=== PATIENT | female | born 1945 | race Caucasian/White ===

== ENCOUNTER 2017-04-23 06:33 | Day surgery (SDC) | payer MEDICARE ==
[2017-04-23 08:06] LABS: #Eosinphils 0.1 thou/uL (0.0-0.7); #Lymphocytes 0.7 thou/uL (1.20-3.40); #Monocytes 0.5 thou/uL (0.11-0.59); #Neutrophils 2.6 thou/uL (1.40-6.50); %Basophils 0.7 % (0.0-1.0); %Eosinophils 3.2 % (0.0-10.0); %Lymphocytes 17.9 % (21.0-51.0); %Monocytes 12.6 % (0.0-10.0); Mean Platelet Volume 5.9 fL (7.4-10.4); Red Blood Cell (RBC) Count 4.21 mill/uL (4.20-5.40); White Blood Cell (WBC) Count 3.9 thou/uL (4.8-10.8)
[2017-04-23 08:12] LABS: PTT 28.6 SEC (22.9-36.1)
[2017-04-23 08:16] LABS: Prothrombin Time 12.6 SEC (12.0-14.7)
[2017-04-23 08:29] LABS: Anion Gap 13 mmol/L (10-20); BUN (Urea Nitrogen) 9 mg/dL (9.8-20.1); Calc. Creatinine Clearance 0 mL/min (70-130); Carbon Dioxide 27 mmol/L (23-31); Chloride 99 mmol/L (98-107); Estimated GFR-MDRD Greater than 90
[2017-04-23] MEDS ORDERED: Midazolam HCl 2 mg/2 ml Vial ONE (10:50)
[2017-04-23] MEDS ORDERED: Bacitracin Zinc Ointment 30 gm TUBE ONE (11:55)
[2017-04-23] MEDS ORDERED: Bupivacaine PF 0.5% 30 ML VIAL ONE (11:55)
[2017-04-23] MEDS ORDERED: Fentanyl 100 MCG/2 ML VIAL ONE ×2 (12:16→13:29)
[2017-04-23] MEDS ORDERED: Lidocaine 1% PF 5 ML VIAL ONE (12:34)
[2017-04-23] MEDS ORDERED: Dexamethasone 20 MG/5 ML VIAL ONE (12:34)
[2017-04-23] MEDS ORDERED: Propofol 200 MG/20 ML VIAL ONE (12:34)
[2017-04-23] MEDS ORDERED: Ondansetron HCl/PF 4 MG/2 ML Vial ONE (12:34)
[2017-04-23] MEDS ORDERED: Betamet Acet/Betamet Na Ph 30 MG/5 ML VIAL ONE (12:55)
--- NOTE | 2017-04-24 09:17 | OP ---
DATE OF PROCEDURE: 04/23/2017 PREOPERATIVE DIAGNOSES: Left palmar wrist ganglion, approximately 3 cm palmar wrist ganglion cyst c ompletely surrounding the radial artery with a stalk extending to the palmar scapholunate and radiol unate joint. PROCEDURE PERFORMED: 1. Arthrotomy with excision of ganglion. 2. Ligation of radial artery branch bleed, arterial. TOURNIQUET TIME: 35 minutes. ESTIMATED BLOOD LOSS: Less than 10 mL. INJECTABLE: Yes, 2 mL of Celestone drip technique at the end of the procedure and 12 mL 0.5% Marcai ne around a 5 cm incision. INDICATION: Pain with mass, palmar wrist ganglion. DESCRIPTION OF PROCEDURE: After successful general LMA technique by the [place] anesthesia, the danny bravo had the time out done appropriately, the limb was prepped and draped, the limb was exsanguinat ed, tourniquet inflated to 250 mmHg pressure. A zigzag incision was made centered on the mass, glaser ied 2 cm distal and 2 cm proximal. Dissection was done through the skin and subcutaneous tissue wit h a combination of [place] blade and tenotomy scissors until we could see that the mass at the radial artery on its radial one-third and completely surrounded the radial artery and its branch. We just dissected the radial artery and all branches away from the mass, then pulled the radial artery radi ally and the mass ulnarly and following its stalk until we penetrated the articular surface. We mad e an arthrotomy approximately 6 mm long following the stalk into the joint, removing the stalk along with some synovium and the mass en bloc. The mass emanated from a confluence of the scaphoid, charo te, and the radioscaphoid joints. We placed a 2 mL Celestone along the path into the joint, released the tourniquet, and there was ble eding from the radial artery branch which we ligated with a medium vessel clip. Once hemostasis was obtained using a combination of the clip and cautery, we were able to close the wound in a 2-layer closure with interrupted 4-0 Monocryl in the zigzag corners of the Damaris type incision and the epi dermal closure with a 4-0 nylon interrupted mattress pattern. Bulky dressing applied along with pal mar splint. The patient left the operating room without complications.
== END 2017-04-23 15:54 | disposition home or self-care (01) ==
LOC: SDC 06:33
PROVIDERS: ATTEND Orthopaedic Surgery Hand Surgery
PROC: 0RJ Upper Joints, Inspection (ICD-10-PCS; principal; 2017-04-23)
PROC: 0W3Q0ZZ Control Bleeding in Respiratory Tract, Open Approach (ICD-10-PCS; 2017-04-23)
DX: M67.432 Ganglion, left wrist (principal); J44.9 Chronic obstructive pulmonary disease, unspecified; Z90.89 Acquired absence of other organs; Z98.890 Other specified postprocedural states; Z83.6 Family history of other diseases of the respiratory system; Z79.899 Other long term (current) drug therapy; Z88.2 Allergy status to sulfonamides; Z88.6 Allergy status to analgesic agent; Z87.891 Personal history of nicotine dependence
CPT/HCPCS: 36415; 80048; 85025; 85610; 85730; 88304; 96374; J0702; J1100; J2001; J2250; J2405; J2704; J3010; S0020

== ENCOUNTER 2017-05-22 11:37 | Emergency (ER) | payer MEDICARE ==
[2017-05-22] MEDS ORDERED: Ondansetron HCl/PF 4 MG/2 ML Vial ONE (13:41)
[2017-05-22] MEDS ORDERED: Morphine 2 MG/ML SYRINGE ONE ×2 (13:41→15:03)
--- NOTE | 2017-05-22 15:22 | RAD ---
PORTABLE CHEST ONE VIEW: Date: 05-22-17 Time: 2:23 p.m. History: Upper back pain. FINDINGS/IMPRESSION: Comparison is made with exam of 03-29-17. The heart size is normal. The aorta is tortuous. Lungs are expanded with chronic changes. No lobar c onsolidation, pneumothorax, or pleural effusions are seen. POS: [facility]
--- NOTE | 2017-05-22 15:24 | RAD ---
THREE VIEWS THORACIC SPINE: Date: 05-22-17 History: Back pain. Recent surgery on T3 vertebral body. Patient complains of upper back pain today. Comparison: CT thoracic spine, 04-05-17. FINDINGS: There is osteopenia. There are mild scattered degenerative changes in the thoracic spine. Vertebropl asty changes at the T2 vertebral body are noted which were seen on the CT scan. There have been inte rval vertebroplasty changes now present involving the compression fracture of the T10 vertebral body noted on the prior CT of the thoracic spine on 04-05-17. No additional compression fracture is seen. Vertebroplasty changes involving the upper lumbar vertebral bodies. Vascular calcifications are seen in the thoracic aorta. IMPRESSION: 1. Vertebroplasty changes involving compression fractures of the T10 and T12 vertebral bodies. 2. No acute fracture is seen involving the thoracic spine. Scattered mild degenerative changes are n oted. POS: [facility]
--- NOTE | 2017-05-22 15:26 | RAD ---
LUMBAR SPINE THREE VIEWS: History: 72-year-old female with back pain, recent surgery on T3 on Saturday, now with upper back pain. FINDINGS: Three views of the lumbar spine demonstrate status post vertebroplasty changes involving L5, L4, L3 and T12 and T10 with the L4 vertebroplasty changes being new when compared to the prior 04-05-17 study . There is diffuse bony demineralization. No evidence for significant malalignment. IMPRESSION: Multiple vertebroplasty changes, new at L4, when compared to the prior CT of 04-05-17. Bony deminerali zation. No evidence for new acute fracture. POS: [facility]
== END 2017-05-22 13:15 | disposition home or self-care (01) ==
LOC: ERS 11:37
DX: M54.14 Radiculopathy, thoracic region (principal); C34.90 Malignant neoplasm of unspecified part of unspecified bronchus or lung; J44.9 Chronic obstructive pulmonary disease, unspecified; Z92.3 Personal history of irradiation; Z87.891 Personal history of nicotine dependence; Z79.899 Other long term (current) drug therapy
CPT/HCPCS: 71010; 72072; 72100; 96361; 96374; 96375; 96376; J2270; J2405

== ENCOUNTER 2017-05-23 02:21 | Emergency (ER) | payer MEDICARE ==
[2017-05-23] MEDS ORDERED: Methocarbamol 1 GM in Sodium Chloride 0.9% 100 ML IVPB SCH (03:00)
[2017-05-23 03:20] LABS: #Eosinphils 0.1 thou/uL (0.0-0.7); #Lymphocytes 0.7 thou/uL (1.20-3.40); #Monocytes 0.7 thou/uL (0.11-0.59); #Neutrophils 3.7 thou/uL (1.40-6.50); %Basophils 0.7 % (0.0-1.0); %Eosinophils 1.4 % (0.0-10.0); %Lymphocytes 13.8 % (21.0-51.0); %Monocytes 13.1 % (0.0-10.0); Hematocrit 43.8 % (36.0-47.0); Mean Platelet Volume 6.1 fL (7.4-10.4); Red Blood Cell (RBC) Count 4.49 mill/uL (4.20-5.40); White Blood Cell (WBC) Count 5.2 thou/uL (4.8-10.8)
[2017-05-23 03:29] LABS: ALT (SGPT) 17 U/L (8-55); AST (SGOT) 25 U/L (5-34); Alkaline Phosphatase 120 U/L (40-150); Anion Gap 13 mmol/L (10-20); BUN (Urea Nitrogen) 12 mg/dL (9.8-20.1); Calc. Creatinine Clearance 0 mL/min (70-130); Calcium 9.4 mg/dL (7.8-10.44); Carbon Dioxide 25 mmol/L (23-31); Chloride 99 mmol/L (98-107); Estimated GFR-MDRD 89; Lipase 4 U/L (8-78)
[2017-05-23 04:39] LABS: Bilirubin Negative (Negative); Blood, Urine Negative (Negative); Glucose, Urine (Dipstick) Negative (Negative); Ketone, Urine Trace mg/dL (Negative); Nitrite Negative (Negative); Protein, Urine (Dipstick) Negative (Neg-Trace); Urobilinogen 0.2 mg/dL (0.2-1.0)
--- NOTE | 2017-05-23 08:24 | ULT ---
PRELIMINARY REPORT/[facility]/EMERGENCY AFTER HOURS PROCEDURE: EXAM: US Abdomen Limited, Right Upper Quadrant EXAM DATE/TIME: Exam ordered 05/23/2017 3:26 AM CLINICAL HISTORY: 72 years old, female; Pain; Abdominal pain; Other: Epigastric pain radiating to back; Additional inf o: HX: Back surgery this week TECHNIQUE: Real-time ultrasound of the right upper quadrant with image documentation. COMPARISON: No relevant prior studies available. FINDINGS: Liver: Normal. No mass. No intrahepatic bile duct dilation. Gallbladder: There's no gallbladder stone or sludge. A negative sonographic Valladares sign is reported. Gall bladder wall thickness measures approximately 2 mm. Common bile duct: Bile duct measures approximately 5 mm per No stones. No dilation. Pancreas: The visualized pancreas is unremarkable. Right kidney: The RIGHT kidney measures 9.2 x 4.4 x 4.3 cm. There is a RIGHT kidney probably simple cyst measuring approximately 1 cm. No stones. No hydronephrosis. IMPRESSION: No ultrasound evidence of cholelithiasis or acute cholecystitis. Thank you for allowing us to participate in the care of your patient. Dictated and Authenticated by: Quinn Sullivan MD 05/23/2017 4:36 AM Central Time ([place] \T\ [place]) FINAL REPORT EMERGENCY AFTER HOURS STUDY ULTRASOUND ABDOMEN LIMITED: (RIGHT UPPER QUADRANT) HISTORY: 72-year-old female with epigastric pain. FINDINGS: The gallbladder has normal wall thickness and has no evidence of gallstones or sludge. The hepatic echogenicity is normal. The right kidney has normal echogenicity and has no hydronephrosis. The pa ncreas is visualized, although ultrasound is relatively insensitive for pancreatic pathology compare d to CT and MRI. There is no biliary dilation. The common duct caliber is 5 mm. There is a 1 cm r ight renal cyst. This report agrees with the preliminary report by [facility]. IMPRESSION: 1. Small right renal cyst. 2. Otherwise negative. jn [] POS: [facility]
== END 2017-05-23 05:46 | disposition home or self-care (01) ==
LOC: ERS 02:21
DX: M54.5 Low back pain (principal); R10.11 Right upper quadrant pain
CPT/HCPCS: 76705; 80053; 81003; 83690; 85025; 96365; 96366; J2800; J7050

== ENCOUNTER 2017-07-08 15:48 | Observation (INO) | payer MEDICARE ==
[2017-07-08 16:58] LABS: #Eosinphils 0.1 thou/uL (0.0-0.7); #Lymphocytes 1.1 thou/uL (1.20-3.40); #Monocytes 0.7 thou/uL (0.11-0.59); #Neutrophils 4.5 thou/uL (1.40-6.50); %Basophils 0.7 % (0.0-1.0); %Monocytes 11.2 % (0.0-10.0); Hematocrit 39.1 % (36.0-47.0); Mean Platelet Volume 6.2 fL (7.4-10.4); Red Blood Cell (RBC) Count 3.85 mill/uL (4.20-5.40); White Blood Cell (WBC) Count 6.6 thou/uL (4.8-10.8)
[2017-07-08 17:04] LABS: Prothrombin Time 12.6 SEC (12.0-14.7)
[2017-07-08 17:22] LABS: Lactic Acid - Sepsis 0.9 mmol/L (0.5-2.2)
[2017-07-08] MEDS ORDERED: ISOVUE-370 76%-LOCM 1 ML ONE (17:25)
[2017-07-08 17:26] LABS: ALT (SGPT) 9 U/L (8-55); AST (SGOT) 16 U/L (5-34); Alkaline Phosphatase 103 U/L (40-150); Anion Gap 13 mmol/L (10-20); BUN (Urea Nitrogen) 8 mg/dL (9.8-20.1); Bilirubin, Total 0.3 mg/dL (0.2-1.2); Calc. Creatinine Clearance 0 mL/min (70-130); Calcium 9.3 mg/dL (7.8-10.44); Carbon Dioxide 28 mmol/L (23-31); Chloride 99 mmol/L (98-107); Estimated GFR-MDRD 88; Globulin 2.9 g/dL (2.4-3.5); Lipase 6 U/L (8-78); Magnesium 1.9 mg/dL (1.6-2.6); Protein, Total 6.7 g/dL (6.0-8.3); Troponin I Less than 0.010 ng/mL (< 0.028)
--- NOTE | 2017-07-08 17:46 | RAD ---
AP CHEST: History: Shortness of breath. Date: 07-08-17 Comparison: 05-22-17 FINDINGS: AP chest demonstrates calcification of the aorta. Interstitial fibrotic changes seen throughout the l ungs, unchanged since the previous exam. No evidence of acute intrathoracic disease seen. No evidence of effusions, pneumonia, or pneumothorax seen. IMPRESSION: Interstitial fibrotic changes. No acute intrathoracic abnormalities seen. POS: [facility]
[2017-07-08 18:30] LABS: Bilirubin Negative (Negative); Blood, Urine Negative (Negative); Glucose, Urine (Dipstick) Negative (Negative); Ketone, Urine Negative (Negative); Nitrite Negative (Negative); Protein, Urine (Dipstick) Negative (Neg-Trace); Urobilinogen 0.2 mg/dL (0.2-1.0)
[2017-07-08 18:32] LABS: Bacteria/HPF None Seen HPF (None Seen); Hyaline Casts/LPF 0-3 HYALINE CAST LPF (0-3 Hyaline); RBC/HPF 0-3 HPF (0-3); Squamous Epithelial 0-3 HPF (0-3); WBC/HPF 0-3 HPF (0-3)
[2017-07-08] MEDS ORDERED: Nitroglycerin 2% Ointment 1 INCH/1 GM Packet ONE (18:49)
[2017-07-08 19:45] LABS: Troponin I 0.014 ng/mL (< 0.028)
--- NOTE | 2017-07-08 20:37 | PDOC.EVN ---
Event Note - Event Note Event Note: [id number] H&P Dictated 1. Chest pain 2. H/O COPD 3. Chronic respiratory failure 4. H/O Lung ca plan: see orders
[2017-07-08] MEDS ORDERED: Sodium Chloride 0.9% 1,000 ML IV SCH (21:45)
--- NOTE | 2017-07-08 22:09 | CT ---
CTA OF THE CHEST WITH CONTRAST: Comparison: 03-29-17 History: Shortness of breath, sudden onset. Intermittent right lower chest pain. Technique: Multiple contiguous axial images were obtained in a CTA of the chest with contrast perform ed per PE protocol. 3D oblique MIP reformats and direct coronal reformats were performed. FINDINGS: The pulmonary arteries are well opacified without filling defects to suggest pulmonary emboli. The he art is normal in size without focal cardiac abnormality. No hilar or mediastinal lymphadenopathy are seen. Atherosclerotic calcifications are seen in the aorta and coronary arteries. Emphysematous changes are seen in the lungs. No focal infiltrates are seen in the lungs. Scarring is seen in the right middle lobe. There is a small right pleural effusion. No left pleural effusion is s een. No suspicious pulmonary masses are seen. The chest wall soft tissues are unremarkable. Degenerative changes are seen in the spine. Visualized subdiaphragmatic structures are unremarkable. IMPRESSION: 1. No evidence of pulmonary thromboembolism. 2. Right pleural effusion. 3. Emphysema. POS: [facility]
[2017-07-08 22:46] LABS: Troponin I Less than 0.010 ng/mL (< 0.028)
[2017-07-08 22:54] VITALS: BMI 20.7
[2017-07-09] MEDS: Nitroglycerin 2% Ointment 1 INCH/1 GM Packet TOP SCH ×3 (03:38→15:18)
[2017-07-09] MEDS: HYDROcodone/Acetaminophen 5/325 mg Tablet PO PRN ×2 (03:39→08:33)
--- NOTE | 2017-07-09 03:51 | HP ---
DATE OF ADMISSION: 07/08/2017 CHIEF COMPLAINT: Chest pain. HISTORY OF PRESENT ILLNESS: The patient is a 72-year-old female with past medical history of right l chad cancer, finished radiation treatment approximately in February; COPD, chronic respiratory failure, now came to the ER with complaining of right-sided chest pain. Chest pain is intermittent, sharp kin d of pain, worsens with movement. Does having some dyspnea also. Patient was initially hypoxic, but later on improved, on oxygen. Denies any fever, denies any chills, denies any cough, denies sputum production. Denies any dizziness, denies any nausea. Denies any vomiting. PAST MEDICAL HISTORY: As per HPI. PAST SURGICAL HISTORY: Wrist surgery, tonsillectomy. SOCIAL HISTORY: Denies smoking, denies alcohol, denies any drugs. FAMILY HISTORY: Positive for heart problems. REVIEW OF SYSTEMS: Constitutional: Denies any fever, denies any chills. Eyes: Denies vision probl ems. Ears: Denies any hearing loss. Neck: Denies any neck pain. Cardiovascular: Positive for chest pain. Respiratory system: Positive for dyspnea. Gastrointestin al: Denies nausea, vomiting. Musculoskeletal: Positive for back pain. Cranial nerve system: Denies syncope. Psychiatric: Denies anxiety. Integument: Denies any rash. All other review of systems are reviewed and are negative. PHYSICAL EXAMINATION: CONSTITUTIONAL/VITAL SIGNS: At the time of H&P performed, blood pressure is 130/70, afebrile, pulse ox 97%. GENERAL: This patient appears comfortable. HEENT: Pupils are equal, round, and reactive. Anterior nares patent. Nose normal. Ears normal. T eeth intact. Tongue is moist. NECK: Supple, no JVD. CARDIOVASCULAR SYSTEM: S1, S2 present. Regular rate and rhythm. RESPIRATORY SYSTEM: No wheezing, no rhonchi. Breath sounds bilaterally. GASTROINTESTINAL: Abdomen is soft, nontender, no guarding, no organomegaly, no masses felt. MUSCULOSKELETAL: No edema. CRANIAL NERVES SYSTEM: Cranial nerves intact. Follows commands. Strength intact. Sensory intact. PSYCHIATRIC: Mood appropriate at this time. INTEGUMENTARY: No obvious rashes seen. LABORATORY DATA: At the time of H&P performed PT 12.6, INR 0.9. White count 6.6, hemoglobin 12.5, p latelet count is 250. BMP showed sodium 136, potassium 4.1, chloride 99, CO2 is 28, BUN of 8, creati nine 0.66, glucose 105, calcium 9.3, mag 1.9. CK-MB 1.5, troponin less than 0.010. EKG, no acute ST changes. Chest x-ray no obvious infiltrate seen. ASSESSMENT AND PLAN: The patient is a 72-year-old female. 1. Chest pain, need to rule out cardiac etiology. Plan to check cardiac enzymes. Plan to consult C ardiology to evaluate the patient. Plan to check CTA chest to rule out PE also, and we will follow t he patient. 2. Hypertension. Monitor blood pressures. 3. History of chronic obstructive pulmonary disease. Monitor respiratory status, continue breathing treatments. Continue oxygen nasal cannula. 4. History of right lung cancer. Monitor patient closely. 5. Chronic pain p.r.n. pain meds. Case was discussed in detail with the patient.
[2017-07-09 04:16] LABS: Troponin I 0.015 ng/mL (< 0.028)
[2017-07-09] MEDS ORDERED: Enoxaparin Sodium 40 MG/0.4 ML SYRINGE SC SCH (09:00)
[2017-07-09] MEDS ORDERED: HYDROcodone/Acetaminophen 10/325 mg Tablet PO PRN ×2 (09:19→09:33)
[2017-07-09] MEDS ORDERED: Non-Formulary Item 1 EACH (Albuterol Sulfate [Proair Respiclick] 90 MCG) IH PRN (09:19)
[2017-07-09] MEDS ORDERED: Non-Formulary Item 1 EACH (Tizanidine Hcl [Tizanidine Hcl] 4 MG) PO PRN (09:19)
[2017-07-09] MEDS ORDERED: FENTANYL 25 MCG TD SCH (09:30)
[2017-07-09] MEDS ORDERED: PROVENTIL INHALER 6.7 G (200 INHALATIONS) INH PRN (09:38)
[2017-07-09] MEDS ORDERED: tiZANidine HCl 4 MG TAB PO PRN (09:43)
[2017-07-09] MEDS ORDERED: Aspirin 81 mg Enteric Coated Tablet PO SCH ×2 (10:15→11:00)
[2017-07-09] MEDS ORDERED: Morphine 4 MG/ML VIAL IV PRN (10:17)
--- NOTE | 2017-07-09 11:19 | CON ---
DATE OF CONSULTATION: 07/09/2017 HISTORY OF PRESENT ILLNESS: This is a 72-year-old woman who presents with right -sided chest discomfort. The patient has no previous cardiac history. She recently was diagnosed with lung carcinoma. She has been undergoing radiation therapy to her right lung. The patient states that yesterday around noon, she developed chest discomfort over her right lower rib. The discomfort has been persistent. She states it is worse when she takes a deep breath or with movement. She denied having any previous chest discomfort. PAST MEDICAL HISTORY: 1. Hypertension. 2. Chronic obstructive pulmonary disease. 3. Lung carcinoma. 4. Chronic back pain. PAST SURGICAL HISTORY: Multiple back surgeries, tonsillectomy and wrist surgery. ALLERGIES: SULF DRUGS and NAPROSYN. SOCIAL HISTORY: Former smoker. FAMILY HISTORY: There is a strong family history of heart disease. REVIEW OF SYSTEMS: Ten point system noticeable for severe chronic back pain. PHYSICAL EXAMINATION: GENERAL: This is a thin woman in mild distress. VITAL SIGNS: Blood pressure 112/54, heart rate was 75. NECK: Showed no jugular venous distention. LUNGS: Decreased breath sounds bilateral. HEART: Regular rate and rhythm, normal S1, S2 with distant heart sounds. ABDOMEN: Nondistended. EXTREMITIES: Showed trace edema. SKIN: Warm and dry. NEUROLOGIC: Nonfocal. VASCULAR: Radial pulses are 2+. LABORATORY RESULTS AND IMAGING: Her white blood cell count is 6.6, hemoglobin 12.5, hematocrit 39.1, platelets are 250. INR was 0.9, troponin was 0.015. BNP was 89. EKG revealed normal sinus rhythm with normal ECG. IMPRESSION: 1. Chest pain, atypical, right-sided chest discomfort suggestive of musculoskeletal discomfort. 2. History of lung carcinoma. 3. Chronic obstructive pulmonary disease. 4. Mild hypertension. 5. Dyslipidemia. 6. Chronic back pain. This patient presents with right-sided chest discomfort which is atypical. The patient does have multiple risk factors for coronary artery disease. From a cardiac standpoint, we would recommend she take a low dose of aspirin and lipid lowering medications. The patient is scheduled to undergo an adenosine stress test. We will follow this patient with you through her hospitalization. [facility]
[2017-07-09] MEDS ORDERED: Sodium Chloride 0.65% Nasal 44 ML BOT EA NARE PRN (11:39)
[2017-07-09] MEDS ORDERED: Gabapentin 300 MG CAP PO SCH (15:00)
[2017-07-09 17:24] VITALS: BP 127/62; TEMP 98.3
[2017-07-09] MEDS ORDERED: Mometasone/Formoterol 120 PUFF INHALER INH SCH (18:30)
[2017-07-09] MEDS ORDERED: Atorvastatin Calcium 20 MG TAB PO SCH (21:00)
[2017-07-09] MEDS ORDERED: VIT A PO SCH (21:00)
[2017-07-09] MEDS ORDERED: COPPER PO SCH (21:00)
[2017-07-09] MEDS ORDERED: Non-Formulary Item 1 EACH (Budesonide-Formoterol [Symbicort 160-4.5] 1 PUFF) INH SCH (21:00)
[2017-07-09] MEDS ORDERED: ZINC PO SCH (21:00)
[2017-07-09] MEDS ORDERED: VIT E PO SCH (21:00)
[2017-07-09] MEDS ORDERED: Vit A,C & E/Lutein/Minerals Tablet PO SCH (21:00)
[2017-07-09] MEDS ORDERED: VIT C PO SCH (21:00)
--- NOTE | 2017-07-10 02:21 | DIS ---
DATE OF ADMISSION: 07/08/2017 DATE OF DISCHARGE: 07/09/2017 PRIMARY CARE PROVIDER: Rd Blum M.D. DISCHARGE DIAGNOSIS: Atypical chest pain. CONDITION OF PATIENT AT THE TIME OF DISCHARGE: Stable. Ms. Ayala reports that her chest pain is bett er. She reports chronic back pain. She denies any nausea, vomiting, fevers or chills. PHYSICAL EXAMINATION: VITAL SIGNS: She is currently on 2 L of oxygen, saturating in the mid 90s. CARDIOVASCULAR: S1 and S2 are heard, regular. LUNGS: Clear to auscultation bilaterally. DISCHARGE MEDICATIONS: ProAir RespiClick one puff 2 times a day as needed, Ecotrin 81 mg daily, Lipi tor 20 mg at bedtime, Symbicort 1 puff 2 times a day, calcium plus vitamin D 1 tablet daily, docusate 100 mg daily, fentanyl 25 mcg transdermal patch every 72 hours, Neurontin 300 mg 3 times a day, Nor co 10/325 mg tablet q.6 hours p.r.n., DuoNeb 3 mL q.i.d. p.r.n., multivitamins 1 tablet daily, omepra zole 20 mg daily, tizanidine 4 mg 3 times a day as needed, ICAPS AREDS Softgel 1 capsule 2 times a da y. HOSPITAL COURSE: Ms. Ayala is a pleasant 72-year-old lady who was admitted to [facility] on 07/08/2017 for atypical right-sided chest pain. She had CT angiogram of the chest, i ch showed no evidence of pulmonary thromboembolism. She had a right pleural effusion and emphysema. She was seen by Cardiology Service and has been started on aspirin and statin. She could not underg o stress test because she could not lie flat, and she refused the stress test at this time. She reported nasal congestion and had a need for oxygen. Her nasal congestion relieved with saline n marcellus spray. She already has home oxygen, and is advised to use oxygen as needed. She is advised to follow up with her primary care provider in 1-3 days' time. Many thanks for allowing me to participate in your patient's care. Please feel free to contact me wi th any questions or concerns. DISCHARGE DESTINATION: Home.
[2017-07-10] MEDS ORDERED: Calcium Carbonate + Vit D 1 TAB PO SCH (09:00)
[2017-07-10] MEDS ORDERED: Aspirin 81 mg Enteric Coated Tablet PO SCH (09:00)
[2017-07-10] MEDS ORDERED: Multivit, Therapeutic 1 TAB PO SCH (09:00)
[2017-07-10] MEDS ORDERED: [UNRECOGNIZED DRUG - MIXTURE] PO SCH (09:00)
[2017-07-10] MEDS ORDERED: Docusate 100 MG CAP PO SCH (09:00)
[2017-07-10] MEDS ORDERED: DOCUSATE SODIUM 100 MG PO SCH (09:00)
[2017-07-10] MEDS ORDERED: Non-Formulary Item 1 EACH (Omeprazole [Omeprazole] 20 MG) PO SCH (09:00)
== END 2017-07-09 19:08 | disposition home or self-care (01) ==
LOC: ERS 15:48 → 2SW 19:00
PROVIDERS: ADMIT Internal Medicine Infectious Disease; ATTEND Internal Medicine Infectious Disease
DX: R07.89 Other chest pain (principal); M54.9 Dorsalgia, unspecified; G89.29 Other chronic pain; J90 Pleural effusion, not elsewhere classified; J43.9 Emphysema, unspecified; I10 Essential (primary) hypertension; J96.10 Chronic respiratory failure, unspecified whether with hypoxia or hypercapnia; Z79.899 Other long term (current) drug therapy; Z88.6 Allergy status to analgesic agent; Z88.2 Allergy status to sulfonamides; Z90.89 Acquired absence of other organs; Z98.890 Other specified postprocedural states; Z87.891 Personal history of nicotine dependence; Z85.118 Personal history of other malignant neoplasm of bronchus and lung; Z92.3 Personal history of irradiation
CPT/HCPCS: 71010; 71275; 80053; 80061; 82553; 83605; 83690; 83735; 83880; 84484 ×3; 85025; 85610; 87040; 87086; 93005; 93306; 94640 ×2; 96360; 96361 ×2; 96372; 97139; 99285; G0378; 36415; 81003; 81015; J1650; J7620

== ENCOUNTER 2017-07-14 15:45 | Observation (INO) | payer MEDICARE ==
[2017-07-14] MEDS ORDERED: Nitroglycerin 2% Ointment 1 INCH/1 GM Packet ONE (16:34)
[2017-07-14 16:48] LABS: #Eosinphils 0.1 thou/uL (0.0-0.7); #Lymphocytes 1.4 thou/uL (1.20-3.40); #Monocytes 0.6 thou/uL (0.11-0.59); %Basophils 0.4 % (0.0-1.0); %Eosinophils 1.2 % (0.0-10.0); %Lymphocytes 22.5 % (21.0-51.0); %Monocytes 10.1 % (0.0-10.0); Hematocrit 41.5 % (36.0-47.0); Mean Platelet Volume 6.7 fL (7.4-10.4); Red Blood Cell (RBC) Count 4.12 mill/uL (4.20-5.40)
[2017-07-14 17:12] LABS: ALT (SGPT) 10 U/L (8-55); AST (SGOT) 17 U/L (5-34); Alkaline Phosphatase 107 U/L (40-150); Anion Gap 14 mmol/L (10-20); BUN (Urea Nitrogen) 7 mg/dL (9.8-20.1); Bilirubin, Total 0.4 mg/dL (0.2-1.2); CK (CPK) 95 U/L (29-168); Calc. Creatinine Clearance 0 mL/min (70-130); Calcium 9.4 mg/dL (7.8-10.44); Carbon Dioxide 30 mmol/L (23-31); Chloride 100 mmol/L (98-107); Estimated GFR-MDRD 88; Globulin 3.1 g/dL (2.4-3.5); Lipase 4 U/L (8-78)
[2017-07-14 17:16] LABS: Troponin I Less than 0.010 ng/mL (< 0.028)
[2017-07-14] MEDS ORDERED: ISOVUE-370 76%-LOCM 1 ML ONE (17:48)
--- NOTE | 2017-07-14 19:14 | CT ---
CTA THORAX WITH CONTRAST: (Computed Tomographic Angiography, chest(noncoronary) with contrast material, and image postprocessin g) (PE protocol) DATE: 07-14-17 COMPARISON: CT pulmonary angiogram 07-08-17 HISTORY: 72-year-old female with substernal acute chest pain and dyspnea. History of lung cancer. TECHNIQUE: IV injection of iodinated contrast: 100 ml Isovue 370 Scan acquisition timing attempted to coincide with iodinated contrast bolus reaching maximal density in pulmonary arteries. 3D MIP reconstructions. FINDINGS: There is no evidence of pulmonary thromboembolism. Heavy atherosclerotic calcification and ectasia of the thoracic aorta, without aneurysm or dissection. No cardiomegaly. There is a new small pericardia l effusion. The previously demonstrated small right pleural effusion has increased in volume and now occupies approximately 20-30% volume of the right hemithorax. Again noted is the chronic plate like d ensity consistent with scar/chronic atelectasis, at the right middle lobe extending from the hilum to the anterior pleural surface. This contains mild bronchiectasis and has slightly worsened, having be come thicker. Contiguous with the superior posterior aspect of this chronic atelectasis, there is a region of pulmo nary architectural distortion with spiculation and focal mild bronchiectasis, representing the site o f previously treated lung cancer, along the plane of the minor fissure. This appearance has not signi ficantly changed. Again noted are the diffuse moderate emphysematous changes throughout both lungs. N o left sided pleural effusion. Again noted are the multiple compression fractures of the thoracic spi ne, some of which have been treated with vertebroplasty cement. No acute infiltrate in the left lung. IMPRESSION: 1. No evidence of pulmonary thromboembolism. 2. Emphysema. 3. Interval increase in volume of right pleural effusion. 4. New small pericardial effusion. 5. Region of architectural distortion along the right minor fissure representing site of previously t reated primary lung cancer. 6. Interval worsening of the subsegmental atelectasis in the right middle lobe. 7. Atherosclerosis and ectasia of the thoracic aorta. 8. Osteoporosis and multiple compression fractures of the thoracic spine, some of which have been zhane ated with vertebroplasty cement. nikki[] POS: [facility]
[2017-07-14] MEDS ORDERED: Acetaminophen 500 MG TAB ONE (19:20)
[2017-07-14 20:30] LABS: Bilirubin Negative (Negative); Blood, Urine Negative (Negative); Glucose, Urine (Dipstick) Negative (Negative); Ketone, Urine 15 mg/dL (Negative); Nitrite Negative (Negative); Protein, Urine (Dipstick) Negative (Neg-Trace); Urobilinogen 0.2 mg/dL (0.2-1.0)
--- NOTE | 2017-07-14 21:56 | PDOC.EVN ---
Event Note - Event Note Event Note: [id number] H&P Dictated 1. Chest pain 2. HTN 3. H/O COPD 3. Pain plan: see orders
[2017-07-14] MEDS ORDERED: PROVENTIL INHALER 6.7 G (200 INHALATIONS) INH PRN (22:32)
[2017-07-14] MEDS ORDERED: tiZANidine HCl 4 MG TAB PO PRN (22:32)
[2017-07-14 22:56] VITALS: BMI 19.7
[2017-07-14] MEDS: HYDROcodone/Acetaminophen 10/325 mg Tablet PO PRN (23:23)
[2017-07-14] MEDS: Sodium Chloride 0.9% 1,000 ML IV SCH (23:24)
[2017-07-15 01:07] LABS: Troponin I 0.019 ng/mL (< 0.028)
--- NOTE | 2017-07-15 01:26 | HP ---
CHIEF COMPLAINT: Chest pain. HISTORY OF PRESENT ILLNESS: The patient is a 72-year-old female with past medical history of hyperte nsion, lung CA, COPD and chronic respiratory failure, who just got discharged from the hospital on with diagnosis of chest pain. Patient was seen by Cardiology at that time. Patient also ramon d an echocardiogram done at that time and that showed normal ejection fraction. The patient now came to the ER complaining of chest pain. Chest pain is intermittent, spasm kind radiating to both the s ides of the chest and to the back. No aggravating factors, no relieving factors. Denies any fever, denies any chills, denies any sweating, denies any nausea, denies any vomiting. PAST MEDICAL HISTORY: As per HPI. PAST SURGICAL HISTORY: Tonsillectomy and wrist surgery. SOCIAL HISTORY: Denies smoking, denies alcohol, denies any drugs. FAMILY HISTORY: Denies any heart problems. REVIEW OF SYSTEMS: Constitutional: Denies any fever, denies any chills. Eyes: Denies any vision p roblems. Ears: Denies any hearing loss. Neck: Denies any neck pain. Cardiovascular System: Posit jamin for chest pain. Respiratory System: Positive for dyspnea and cough. Cranial Nervous System: D enies syncope. Psychiatric: Denies anxiety. Integument: Denies any rash. All other review of sys tems are reviewed and are negative. PHYSICAL EXAMINATION: CONSTITUTIONAL/VITAL SIGNS: At the time of H&P performed, blood pressure is 110/70, afebrile and res piration rate 18. GENERAL: This patient appears comfortable. HEENT: Pupils are equal, round and reactive. Anterior naris patent. Nose normal. Ears normal. Te eth poor dentition. NECK: Supple. No JVD. CARDIOVASCULAR SYSTEM: S1 and S2 present. Regular rate and rhythm. No murmurs, no rubs, no gallops . RESPIRATORY SYSTEM: No wheezing, no rhonchi. Breath sounds bilaterally. GASTROINTESTINAL: Abdomen is soft and nontender. No guarding, no organomegaly, no masses felt. MUSCULOSKELETAL: No edema. CRANIAL NERVOUS SYSTEM: Awake and follows commands. Speech is clear. PSYCHIATRIC: Mood is appropriate at this time. LABORATORY DATA: At the time of H&P performed, white count 6, hemoglobin 13.4, platelet count is 278 . Troponin is negative x2. BNP 225. BMP: Sodium showed 140, potassium 3.9, chloride 100, CO2 of 3 0, BUN of 7 and creatinine 0.66. UA specific gravity 1.038. ASSESSMENT AND PLAN: The patient is a 72-year-old female. 1. Chest pain, need to rule out cardiac etiology. Plan to check cardiac enzymes. Plan to monitor t he patient closely. 2. History of hypertension. Monitor blood pressure. Continue home blood pressure meds. 3. History of chronic obstructive pulmonary disease. Continue patient on breathing treatments. Mon itor respiratory status closely. 4. Pain. P.r.n. pain meds. The case was discussed in detail with the patient.
[2017-07-15] MEDS: Nitroglycerin 2% Ointment 1 INCH/1 GM Packet TOP SCH ×2 (01:37→14:49)
[2017-07-15 05:35] LABS: Troponin I 0.018 ng/mL (< 0.028)
[2017-07-15] MEDS: HYDROcodone/Acetaminophen 10/325 mg Tablet PO PRN ×2 (06:37→14:47)
[2017-07-15] MEDS: Gabapentin 300 MG CAP PO SCH ×3 (08:31→21:51)
[2017-07-15] MEDS: Aspirin 325 MG TAB PO SCH (08:31)
[2017-07-15] MEDS: Mometasone/Formoterol 120 PUFF INHALER INH SCH ×2 (08:37→19:23)
[2017-07-15] MEDS ORDERED: Non-Formulary Item 1 EACH (Omeprazole [Omeprazole] 20 MG) PO SCH (09:00)
[2017-07-15] MEDS ORDERED: Non-Formulary Item 1 EACH (Budesonide-Formoterol [Symbicort 160-4.5] 1 PUFF) INH SCH (09:00)
[2017-07-15] MEDS ORDERED: Carvedilol 6.25 MG TAB PO SCH (09:00)
[2017-07-15] MEDS: Ketorolac Tromethamine 30 MG/ML VIAL IVP SCH ×2 (11:28→17:42)
[2017-07-15] MEDS: Furosemide 20 MG/2 ML VIAL SLOW IVP SCH (11:31)
--- NOTE | 2017-07-15 11:57 | CON ---
DATE OF CONSULTATION: 07/15/2017 HISTORY OF PRESENT ILLNESS: The patient is an unfortunate 72-year-old woman with a history of lung carcinoma who presents with recurrent chest and back discomfort. The patient has a history of severe COPD. She was recently diagnosed with lung carcinoma. She was thought to be a prohibitive risk for undergoing surgery secondary to severe chronic obstructive pulmonary disease. The patient has undergone radiation therapy. She presented approximately a week ago with chest discomfort over her right lower rib. The patient was placed on aspirin and lipid lowering medication. She represented to the emergency room with persistent chest discomfort. She states for the past 2 days she has noticed whenever she takes a deep breath or moves she developed mid sternal chest discomfort. This radiates to her back. The patient has a history of chronic back discomfort. PAST MEDICAL HISTORY: 1. Hypertension. 2. Lung carcinoma. 3. Chronic back pain. 4. Chronic obstructive pulmonary disease. PAST SURGICAL HISTORY: Multiple back surgeries, tonsillectomy,and wrist surgery. ALLERGIES: She is allergic to SULFA DRUGS and NAPROSYN. SOCIAL HISTORY: She is a former smoker. FAMILY HISTORY: There is no strong family history of heart disease. CURRENT MEDICATIONS: Lipitor 20 at bedtime, gabapentin 300 t.i.d., aspirin 81 daily, albuterol, Symbicort and fentanyl patch. REVIEW OF SYSTEMS: Ten point systems is noticeable for severe back discomfort. PHYSICAL EXAMINATION GENERAL: This is an ill-appearing woman who is dyspneic. VITAL SIGNS: Blood pressure of 137/88. NECK: Her neck showed no jugular venous distention. LUNGS: Lungs have crackles in the right base. HEART: Regular rate and rhythm, normal S1, S2. ABDOMEN: Nondistended. EXTREMITIES: Showed trace edema. SKIN: Warm and dry. NEUROLOGIC: Nonfocal. VASCULAR: Radial pulses 2+. LABORATORY: Sodium was 140, potassium 3.9, chloride 100, bicarbonate 30, BUN 7 , creatinine is 0.66, glucose 117, troponin 0.01. BNP was 225. White blood cell count 6.0, hemoglobin 13.4, hematocrit 41.5, platelets 278. D-dimer was 178. Her EKG revealed her to have normal sinus rhythm with nonspecific ST-T wave abnormality. Her CT scan revealed her to have right-sided pleural effusion. IMPRESSION: 1. Chest pain. 2. Severe chronic obstructive pulmonary disease. 3. History of lung carcinoma. 4. Tobacco abuse. 5. Chronic back discomfort. 6. Congestive heart failure secondary to diastolic dysfunction. This patient presents with chest pain. Her ECG is unremarkable. Cardiac enzymes reveal no evidence of a myocardial infarction. The patient's pain appears to be musculoskeletal. She does appear to be in mild congestive heart failure. I would recommend that she be diuresed with Lasix. The patient is at a prohibitive risk for surgery. We will follow this patient with you through her hospitalization. We will add Toradol for pain control. [facility]
[2017-07-15] MEDS: Sodium Chloride 0.9% 1,000 ML IV SCH (12:18)
--- NOTE | 2017-07-15 14:56 | PDOC.PN ---
- Subjective Encounter Start Date: 07/15/17 Encounter Start Time: 10:00 Patient seen and examined. Chest pressure +. No overnight events - Objective MAR Reviewed: Yes Vital Signs & Weight: Vital Signs (12 hours) Temp Pulse Resp BP BP Pulse Ox 07/15/17 12:16 98.2 F 91 18 170/85 H 93 L 07/15/17 09:29 82 137/88 07/15/17 08:37 84 24 H 94 L 07/15/17 08:31 147/67 H 07/15/17 07:55 98.3 F 79 18 147/67 H 94 L 07/15/17 07:15 98.3 F 98 20 Weight Weight 118 lb 5 oz I&O: 07/14/17 07/15/17 07/16/17 06:59 06:59 06:59 Intake Total 720 1264 Output Total 300 550 Balance 420 714 Result Diagrams: 07/14/17 16:37 07/14/17 16:37 EKG Reviewed by me: Yes (Tele SR) Phys Exam - Physical Examination Constitutional: NAD Respiratory: no wheezing, no rales, no rhonchi Cardiovascular: RRR, no rub no heaves/pulsations Gastrointestinal: soft, non-tender, no distention, positive bowel sounds Musculoskeletal: no edema Neurological: non-focal, moves all 4 limbs Psychiatric: normal affect, A&O x 3 Dx/Plan - Plan DVT proph w/SCDs IMPRESSION: 1. Chest pain - prob musculosketal 2. Severe COPD with ongoing Tobacco abuse/Chronic resp failure 3. Lung Ca 4. Chronic diastolic heart failure 5. Chronic pain syndrome 6. HLD PLAN: * Home meds restarted * AM labs * Await Cardio input * Counselled to quit smoking * Cont to monitor Review of Systems - Review of Systems Respiratory: negative: Cough, Dry, Shortness of Breath, Hemoptysis, SOB with Excertion, Pleuritic Pain, Sputum, Wheezing Gastrointestinal: negative: Nausea, Vomiting, Abdominal Pain, Diarrhea, Constipation, Melena, Hematochezia - Medications/Allergies Allergies/Adverse Reactions: Allergies Allergy/AdvReac Type Severity Reaction Status Date / Time naproxen [From Aleve] Allergy Intermediate Rash Verified 04/22/17 11:25 Sulfa (Sulfonamide Allergy Verified 04/22/17 11:25 Antibiotics) Medications: Current Medications Hydrocodone Bitart/Acetaminophen ([facility] 10/325) 1 tab PO Q6H PRN PRN Reason: Pain Last Admin: 07/15/17 14:47 Dose: 1 tab Albuterol Sulfate (Proventil Hfa) 0 puff INH BIDPRN PRN PRN Reason: SOB &/or Wheezing Albuterol/Ipratropium (Duoneb) 3 ml NEB QIDPRN PRN PRN Reason: SOB &/or Wheezing Aspirin (Aspirin) 325 mg PO DAILY [facility] Last Admin: 07/15/17 08:31 Dose: 325 mg Atorvastatin Calcium (Lipitor) 20 mg PO HS [facility] Fentanyl (Duragesic) 25 mcg TD Q3D [facility] Last Admin: 07/15/17 11:58 Dose: 25 mcg Furosemide (Lasix) 20 mg SLOW IVP 1000 JAK Last Admin: 07/15/17 11:31 Dose: 20 mg Gabapentin (Neurontin) 300 mg PO TID [facility] Last Admin: 07/15/17 14:47 Dose: 300 mg Ketorolac Tromethamine (Toradol) 15 mg IVP Q6HR [facility] Stop: 07/20/17 12:01 Last Admin: 07/15/17 11:28 Dose: 15 mg Mometasone Furoate/Formoterol Fumar (Dulera 200 Mcg/5 Mcg Inhaler) 2 puff INH BID-RT [facility] Last Admin: 07/15/17 08:37 Dose: 2 puff Nitroglycerin (Nitro-Bid 2% Ointment) 0.5 inch TOP Q8HR [facility] Last Admin: 07/15/17 14:49 Dose: 0.5 inch Pantoprazole Sodium (Protonix) 40 mg PO DAILY [facility] Last Admin: 07/15/17 08:31 Dose: 40 mg Tizanidine HCl (Zanaflex) 4 mg PO TIDPRN PRN PRN Reason: Muscle Spasm Last Admin: 07/15/17 03:06 Dose: 4 mg
[2017-07-15] MEDS: Atorvastatin Calcium 20 MG TAB PO SCH (21:51)
[2017-07-16] MEDS: Ketorolac Tromethamine 30 MG/ML VIAL IVP SCH ×5 (01:38→23:34)
[2017-07-16] MEDS: Mometasone/Formoterol 120 PUFF INHALER INH SCH ×2 (08:08→19:38)
[2017-07-16] MEDS: Aspirin 325 MG TAB PO SCH (09:31)
[2017-07-16] MEDS: HYDROcodone/Acetaminophen 10/325 mg Tablet PO PRN ×3 (09:31→21:04)
[2017-07-16] MEDS: Calcium Carbonate + Vit D 1 TAB PO SCH (09:31)
[2017-07-16] MEDS: Gabapentin 300 MG CAP PO SCH ×3 (09:31→21:02)
[2017-07-16] MEDS: Docusate 100 MG CAP PO SCH (09:31)
[2017-07-16] MEDS: Furosemide 20 MG/2 ML VIAL SLOW IVP SCH (09:33)
--- NOTE | 2017-07-16 11:55 | CON ---
DATE OF CONSULTATION: 07/16/2017 SERVICE: Pulmonary Medicine. INTERVAL HISTORY: The patient is a 72-year-old white female who is known to me. I helped to establi sh her diagnosis of cancer. That being said, she was released from my clinic to come back if she has any increasing respiratory issues. She had a new onset of pleural effusion and her primary physicia n has been trying to get her into my clinic. Each time she was supposed to show up, she found hersel f in the hospital for different issue. Unfortunately, she has not been able to have this pleural flu id evaluated or assessed. She currently presented to the hospital with difficulty breathing and some chest discomfort. She was admitted under chest pain protocol and as such, she was placed in observa tion and pleural effusion is currently not being further evaluated. She feels a little bit better ov ernight. She continues to have some ongoing chest discomfort, but it is much less severe than it was previously. She had some difficulty with breathing and orthopnea. Outside of that, she was not hav ing any fevers, chills, nausea, vomiting, cough, or diarrhea. She is not having any new rashes and h as no hot, red, swollen joints. PAST MEDICAL HISTORY: 1. Lung cancer. 2. COPD. 3. Hypertension. PAST SURGICAL HISTORY: 1. Tonsillectomy. 2. Wrist surgery. SOCIAL HISTORY: Negative for alcohol, tobacco or illicit drug use presently. She has no exposure to chemicals, dust asbestos or tuberculosis. FAMILY HISTORY: Noncontributory. ALLERGIES: NAPROXEN and SULFA. REVIEW OF SYSTEMS: General, head, ears, eyes, nose, throat, cardiovascular, respiratory, GI, , mus culoskeletal, neurologic and skin is negative except as mentioned in the HPI. PHYSICAL EXAMINATION: VITAL SIGNS: Afebrile, pulse 78, blood pressure 142/60, respirations 16, saturation 95% on 2-1/2 lit ers. LUNGS: Crackles are evident, which are quite small in the bibasilar region. No rhonchi are apprecia pretty. HEART: Normal rate, regular. ABDOMEN: Soft, nontender, nondistended, bowel sounds positive. MUSCULOSKELETAL: No cyanosis or clubbing. No pitting in the bilateral lower extremities. NEUROLOGIC: Grossly nonfocal. LABORATORY DATA: WBC 6.0, hemoglobin 13.4, platelets 278,000. D-dimer 1.78. Basic metabolic profil e and liver function studies are unremarkable. BNP is elevated. Troponin is negative x4. Urinalysi s is also unremarkable. IMAGIN. CT of the chest demonstrates findings consistent with fairly advanced emphysema. There is a righ t-sided pleural effusion which is getting slightly larger compared to prior. Small pericardial effus ion is present. There is distortion along the right minor fissure at the site of the previously maicol pretty lung cancer. There is worsening in atelectasis of the right middle lobe. Multiple compression f ractures are otherwise identified. 2. Echocardiogram demonstrates mild diastolic dysfunction, normal ejection fraction of 50%-55%, norm al left atrial size. Mildly elevated right ventricular systolic pressure. ASSESSMENT: 1. Pleural effusion. 2. Chest discomfort. 3. Adenocarcinoma of the lung. PLAN: We will perform a thoracentesis so that we can further characterize the nature of this fluid. Hopefully, the cytology will be negative for malignancy, but if it does, it may change how we approa ch this malignancy in the outpatient setting. Pulmonary or Critical Care will continue to follow lashae le the patient remains inhouse for the time being.
[2017-07-16] MEDS: Atorvastatin Calcium 20 MG TAB PO SCH (21:01)
--- NOTE | 2017-07-16 21:02 | PDOC.PN ---
- Subjective Encounter Start Date: 07/16/17 Encounter Start Time: 16:00 Patient seen and examined. No new complaints. No overnight events - Objective MAR Reviewed: Yes Vital Signs & Weight: Vital Signs (12 hours) Temp Pulse Resp BP Pulse Ox 07/16/17 19:40 93 L 07/16/17 19:38 93 20 93 L 07/16/17 15:37 98.4 F 85 16 161/73 H 94 L 07/16/17 11:30 98.8 F 80 16 139/63 94 L Weight Weight 119 lb 1.6 oz I&O: 07/15/17 07/16/17 07/17/17 06:59 06:59 06:59 Intake Total 720 1625 603 Output Total 300 675 700 Balance 420 950 -97 Result Diagrams: 07/14/17 16:37 07/14/17 16:37 EKG Reviewed by me: Yes (Tele SR) Phys Exam - Physical Examination Constitutional: NAD Respiratory: no wheezing, no rhonchi Cardiovascular: RRR, no rub Gastrointestinal: soft, non-tender, positive bowel sounds Musculoskeletal: no edema Neurological: moves all 4 limbs Dx/Plan - Plan DVT proph w/SCDs IMPRESSION: 1. Chest pain - prob musculosketal - troponins negative 2. Severe COPD with ongoing Tobacco abuse/Chronic resp failure 3. Lung Ca 4. Chronic diastolic heart failure ?acute on chronic - improving after IV Lasix 5. Chronic pain syndrome 6. HLD PLAN: * Cont to monitor * Cardio/Pulm following * Stress test per Cardiology * Cont current meds as below Review of Systems - Review of Systems Cardiovascular: chest pain (same pain). negative: palpitations, orthopnea, paroxysmal nocturnal dyspnea, edema, light headedness, other Gastrointestinal: negative: Nausea, Vomiting, Abdominal Pain, Diarrhea, Constipation, Melena, Hematochezia - Medications/Allergies Allergies/Adverse Reactions: Allergies Allergy/AdvReac Type Severity Reaction Status Date / Time naproxen [From Aleve] Allergy Intermediate Rash Verified 04/22/17 11:25 Sulfa (Sulfonamide Allergy Verified 04/22/17 11:25 Antibiotics) Medications: Current Medications Hydrocodone Bitart/Acetaminophen ([facility] 10/325) 1 tab PO Q6H PRN PRN Reason: Pain Last Admin: 07/16/17 15:46 Dose: 1 tab Albuterol Sulfate (Proventil Hfa) 0 puff INH BIDPRN PRN PRN Reason: SOB &/or Wheezing Albuterol/Ipratropium (Duoneb) 3 ml NEB QIDPRN PRN PRN Reason: SOB &/or Wheezing Aspirin (Ecotrin) 81 mg PO DAILY [facility] Atorvastatin Calcium (Lipitor) 20 mg PO HS [facility] Last Admin: 07/15/17 21:51 Dose: 20 mg Calcium/Vitamin D (Caltrate 600 + Vit D) 1 tab PO DAILY [facility] Last Admin: 07/16/17 09:31 Dose: 1 tab Docusate Sodium (Colace) 100 mg PO DAILY [facility] Last Admin: 07/16/17 09:31 Dose: 100 mg Fentanyl (Duragesic) 25 mcg TD Q3D [facility] Last Admin: 07/15/17 11:58 Dose: 25 mcg Furosemide (Lasix) 20 mg SLOW IVP 1000 JAK Last Admin: 07/16/17 09:33 Dose: 20 mg Gabapentin (Neurontin) 300 mg PO TID [facility] Last Admin: 07/16/17 15:46 Dose: 300 mg Ketorolac Tromethamine (Toradol) 15 mg IVP Q6HR [facility] Stop: 07/20/17 12:01 Last Admin: 07/16/17 18:08 Dose: 15 mg Mometasone Furoate/Formoterol Fumar (Dulera 200 Mcg/5 Mcg Inhaler) 2 puff INH BID-RT [facility] Last Admin: 07/16/17 19:38 Dose: 2 puff Pantoprazole Sodium (Protonix) 40 mg PO DAILY [facility] Last Admin: 07/16/17 09:31 Dose: 40 mg Tizanidine HCl (Zanaflex) 4 mg PO TIDPRN PRN PRN Reason: Muscle Spasm Last Admin: 07/15/17 03:06 Dose: 4 mg
[2017-07-17] MEDS: Ketorolac Tromethamine 30 MG/ML VIAL IVP SCH ×2 (06:16→15:01)
[2017-07-17] MEDS: Mometasone/Formoterol 120 PUFF INHALER INH SCH (06:16)
[2017-07-17] MEDS: Gabapentin 300 MG CAP PO SCH ×2 (08:43→15:01)
[2017-07-17] MEDS: Calcium Carbonate + Vit D 1 TAB PO SCH (08:43)
[2017-07-17] MEDS: Docusate 100 MG CAP PO SCH (08:43)
[2017-07-17] MEDS: HYDROcodone/Acetaminophen 10/325 mg Tablet PO PRN (08:44)
[2017-07-17] MEDS ORDERED: Aspirin 81 mg Enteric Coated Tablet PO SCH (09:00)
[2017-07-17 11:55] VITALS: BP 159/75; TEMP 98.4
--- NOTE | 2017-07-17 13:21 | DIS ---
DATE OF DISCHARGE: 07/17/2017 DISCHARGE DISPOSITION: Home. FOLLOWUP: With primary care physician at [facility]. ALLERGIES: The patient is allergic to SULFA AND ALEVE. The patient was seen and examined on the day of discharge. Denies any new complaints. No chest pain , shortness of breath, or palpitations. DISCHARGE MEDICATIONS: Lasix 20 mg daily as needed for edema. Other home medications were resumed i ncludin. Albuterol inhaler as needed. 2. Aspirin 81 mg daily. 3. Lipitor 20 mg at bedtime. 4. Symbicort 160/4.5 b.i.d. 5. Calcium with vitamin D daily. 6. Colace 100 mg daily. 7. Fentanyl patch 50 mcg every 3 days. 8. Gabapentin 300 mg three times daily. 9. Lyle as needed. 10. DuoNebs as needed. 11. Multivitamin daily. 12. Tizanidine as needed. 13. Vitamin A 1 capsule b.i.d. INPATIENT CONSULTANTS: Pulmonary, Dr. Soni; Cardiology, Dr. Albert Hernadez. BRIEF HOSPITAL COURSE: Patient is a 72-year-old female with severe COPD with chronic respiratory dipak lure, on home oxygen and lung cancer, who presented to the hospital with chest discomfort. Please re reggie to the history and physical dated 07/14/[address] Dumont for further details. The patient was admitted to the telemetry unit with a diagnosis of chest discomfort, rule out acute c oronary syndrome. Serial cardiac enzymes were negative. Due to elevated D-dimer at 1.78, a CT angio gram of the chest was done which was negative for pulmonary embolism. There was interval increase in the volume of the right pleural effusion on the CT for which the patient was evaluated by Pulmonary, Dr. Soni. She also received IV Lasix during his hospital stay. Thoracentesis was planned; howev er, she did not have significant fluid on the ultrasound. For this reason, thoracentesis was not don e. Due to chest discomfort, she underwent a stress test that was negative for reversible ischemia. She has been cleared by consultants for discharge. FINAL DIAGNOSES: 1. Chest discomfort, acute coronary syndrome ruled out. 2. Negative Cardiolite stress test. 3. Severe chronic obstructive pulmonary disease. 4. Tobacco dependence. 5. Chronic respiratory failure, on home oxygen. 6. Lung cancer. 7. Chronic diastolic heart failure, suspected acute on chronic due to improvement in symptoms after IV Lasix. The patient has been started on oral Lasix on an as needed basis. 8. Chronic pain syndrome. 9. Hyperlipidemia. 10. Chronic kidney disease stage 2. 11. Elevated D-dimer with negative CT angiogram of the chest. 12. Significant laboratories, BNP was 225. Plan of care was discussed with the patient in detail. She stated understanding.
[2017-07-17] MEDS: Furosemide 20 MG/2 ML VIAL SLOW IVP SCH (14:59)
--- NOTE | 2017-07-17 15:17 | PRG ---
DATE OF SERVICE: 07/17/2017 SERVICE: Pulmonary Medicine. INTERVAL HISTORY: The patient is doing fine from a respiratory standpoint. She is breathing comfort ably. Currently, she is chest pain free. Otherwise, there has been no interval change to her condit ion. PHYSICAL EXAMINATION: VITAL SIGNS: Afebrile, pulse 80, blood pressure 159/75, respirations 16, saturation 93% on 2 liters nasal cannula. GENERAL: The patient is awake, alert, in no apparent distress. HEENT: Normocephalic, atraumatic. Sclerae are white, conjunctivae pink. Oral and nasal mucosa is m oist without lesions. LUNGS: Decent air entry. This is slightly improved compared to yesterday. Wheezing has resolved. Dependent crackles are minimal. HEART: Normal rate, regular. ABDOMEN: Soft, nontender, nondistended. MUSCULOSKELETAL: Bowel sounds are positive. There is trace pitting in the bilateral lower extremiti es. NEUROLOGIC: Grossly nonfocal. ASSESSMENT: 1. Pleural effusion, getting smaller on bedside ultrasound. 2. Chest discomfort, resolved. 3. Adenocarcinoma of the lung. PLAN: This pleural effusion has come and gone now on 2 separate occasions. My suspicion it is volum e mediated. The patient will follow up with me in clinic as previously directed. At this point, she has no further ongoing requirements for inpatient Pulmonary or Critical Care opinion. As such, we w ill sign off. Please call with additional questions or concerns.
--- NOTE | 2017-07-17 15:31 | NM ---
MYOCARDIAL PERFUSION SCAN: The patient was given 27 mCi of Technetium sestamibi for both stress and rest imaging. The patient w as stressed according to LexiScan protocol. HISTORY: Chest pain. The left ventricle was imaged with SPECT imaging with CT attenuation performed. On the nonattenuation correction images, there is symmetric activity loss in the inferior wall. This corrects on attenuation correction. No evidence of reversible ischemic identified. The wall motion appears normal. The ejection fraction is recorded at 57%. IMPRESSION: No evidence of reversible ischemia. POS: PAIGE
[2017-07-17] MEDS ORDERED: Regadenoson 0.4 MG/5 ML SYRINGE ONE (16:23)
== END 2017-07-17 16:06 | disposition home or self-care (01) ==
LOC: ERS 15:45 → 2SW 21:53
PROVIDERS: ADMIT Internal Medicine; ATTEND Internal Medicine
DX: R07.89 Other chest pain (principal); J44.9 Chronic obstructive pulmonary disease, unspecified; J96.10 Chronic respiratory failure, unspecified whether with hypoxia or hypercapnia; R79.1 Abnormal coagulation profile; G89.4 Chronic pain syndrome; E78.5 Hyperlipidemia, unspecified; I13.0 Hypertensive heart and chronic kidney disease with heart failure and stage 1 through stage 4 chronic kidney disease, or unspecified chronic kidney disease; N18.2 Chronic kidney disease, stage 2 (mild); I50.30 Unspecified diastolic (congestive) heart failure; J90 Pleural effusion, not elsewhere classified; E78.00 Pure hypercholesterolemia, unspecified; Z79.51 Long term (current) use of inhaled steroids; Z87.891 Personal history of nicotine dependence; Z85.118 Personal history of other malignant neoplasm of bronchus and lung; Z79.82 Long term (current) use of aspirin; Z79.899 Other long term (current) drug therapy; Z88.2 Allergy status to sulfonamides; Z88.8 Allergy status to other drugs, medicaments and biological substances; Z98.890 Other specified postprocedural states; Z99.81 Dependence on supplemental oxygen
CPT/HCPCS: 71275; 78452; 80053; 81003; 82550; 82553; 83690; 83880; 84484 ×4; 85025; 85379; 93005; 93017; 94640 ×4; 94760; 96361 ×2; 96374; 96375; 96376 ×3; 99285; A9500; G0378 ×2; 36415; J0280; J1885; J1940; J2785

== ENCOUNTER 2017-08-26 15:16 | Observation (INO) | payer MEDICARE ==
[~2017-08-26 15:16] MED LIST: ISOVUE-370 76%-LOCM 1 ML ONE
--- NOTE | 2017-08-26 15:33 | RAD ---
SINGLE VIEW OF THE CHEST: Comparison: 07-08-17 History: Chest pain, back pain. FINDINGS: Single view of the chest shows a normal sized cardiomediastinal silhouette with atherosclerotic calci fications in the aorta. Increased interstitial markings are present. There is a small right pleural e ffusion. No left pleural effusion is seen. Degenerative changes are seen in the spine. Vertebroplasty cements is seen at multiple levels. IMPRESSION: Small right pleural effusion. POS: BECCA
[2017-08-26 16:07] LABS: #Eosinphils 0.3 thou/uL (0.0-0.7); #Lymphocytes 0.7 thou/uL (1.20-3.40); #Monocytes 0.7 thou/uL (0.11-0.59); #Neutrophils 4.1 thou/uL (1.40-6.50); %Basophils 0.3 % (0.0-1.0); %Eosinophils 4.5 % (0.0-10.0); %Lymphocytes 11.9 % (21.0-51.0); %Monocytes 11.6 % (0.0-10.0); %Neutrophils 71.7 % (42.0-75.0); Hemoglobin 13.3 g/dL (12.0-16.0); Mean Corpuscular HGB CONC 32.7 g/dL (32.0-36.0); Mean Corpuscular Hemoglobin 32.5 pg (27.0-31.0); Mean Corpuscular Volume 99.4 fl (81.0-99.0); Mean Platelet Volume 7.1 fL (7.4-10.4); Platelet Count 248 thou/uL (130-400); RBC Distribution Width 11.8 % (11.5-14.5); Red Blood Cell (RBC) Count 4.11 mill/uL (4.20-5.40); White Blood Cell (WBC) Count 5.7 thou/uL (4.8-10.8)
[2017-08-26 16:23] LABS: ALT (SGPT) 11 U/L (8-55); AST (SGOT) 18 U/L (5-34); Albumin 4.5 g/dL (3.4-4.8); Alkaline Phosphatase 115 U/L (40-150); Anion Gap 13 mmol/L (10-20); BUN (Urea Nitrogen) 9 mg/dL (9.8-20.1); Bilirubin, Total 0.7 mg/dL (0.2-1.2); CK (CPK) 73 U/L (29-168); Calc. Creatinine Clearance 0 mL/min (70-130); Calcium 10.1 mg/dL (7.8-10.44); Carbon Dioxide 26 mmol/L (23-31); Chloride 103 mmol/L (98-107); Digoxin Less than 0.15 ng/mL (0.8-2.0); Estimated GFR-MDRD Greater than 90; Globulin 3.2 g/dL (2.4-3.5); Glucose 108 mg/dL (83-110); Potassium 3.9 mmol/L (3.5-5.1); Protein, Total 7.7 g/dL (6.0-8.3); Sodium 138 mmol/L (136-145)
[2017-08-26 16:27] LABS: CKMB 2.2 ng/mL (0-6.6); Troponin I 0.011 ng/mL (< 0.028)
[2017-08-26 17:48] LABS: Magnesium 1.9 mg/dL (1.6-2.6)
[2017-08-26 18:42] LABS: INR-International Normal Ratio 0.9; PTT 31.7 SEC (22.9-36.1); Prothrombin Time 12.3 SEC (12.0-14.7)
[2017-08-26 19:12] LABS: Bilirubin Small (Negative); Clarity Clear (Clear); Glucose, Urine (Dipstick) Negative (Negative)
[2017-08-26 19:13] LABS: Blood, Urine Negative (Negative); Leukocyte Negative (Negative); Nitrite Negative (Negative); Protein, Urine (Dipstick) Negative (Neg-Trace); Specific Gravity, Urine 1.015 (1.005-1.030); Urobilinogen 0.2 mg/dL (0.2-1.0); pH, Urine 6.5 (5.0-9.0)
--- NOTE | 2017-08-26 19:36 | CT ---
CT ANGIO CHEST PERFORMED WITH INTRAVENOUS CONTRAST ENHANCEMENT WITH 3D RECONSTRUCTIONS: History: Chest pain, shortness of breath. History of lung cancer. Comparison: 07-14-17 FINDINGS: Emphysematous lung changes are again noted. There is no infiltrative process present. Parenchymal sca rring in the right lung is again demonstrated related to patient's lung cancer. The size of the right effusion is definitely decreased as compared to the previous exam. The thoracic aorta is normal in caliber. There is good pulmonary artery opacification, there is no CT evidence for pulmonary embolus. Visualized liver parenchyma shows no focal findings. Multilevel compression changes and vertebroplast y changes are present. IMPRESSION: 1. No CT evidence for pulmonary embolus. 2. Parenchymal scarring in the right lung similar to the previous exam. 3. Small right pleural effusions definitely decreased in size as compared to the prior study. POS: PAIGE
[2017-08-26] MEDS ORDERED: Labetalol HCl 100 MG/20 ML VIAL ONE (21:22)
[2017-08-26 22:09] LABS: Troponin I 0.016 ng/mL (< 0.028)
[2017-08-27] MEDS ORDERED: Ondansetron HCl/PF 4 MG/2 ML Vial IVP PRN (00:06)
[2017-08-27] MEDS ORDERED: HYDROcodone/Acetaminophen 5/325 mg Tablet PO PRN ×2 (00:06)
[2017-08-27] MEDS ORDERED: Ondansetron ODT 4 MG TAB SL PRN (00:06)
[2017-08-27] MEDS ORDERED: Acetaminophen 325 MG TAB PO PRN (00:06)
[2017-08-27] MEDS ORDERED: Labetalol HCl 100 MG/20 ML VIAL SLOW IVP PRN (00:10)
[2017-08-27 00:23] VITALS: BMI 18.5
[2017-08-27 01:10] LABS: Troponin I 0.018 ng/mL (< 0.028)
--- NOTE | 2017-08-27 01:21 | HP ---
DATE OF ADMISSION: 08/27/2017 CHIEF COMPLAINT: Shortness of breath. HISTORY OF PRESENT ILLNESS: This is a 72-year-old white female with a known history of COPD and hist ory of lung cancer, had a recent history of lung mass biopsied a year ago was turned out to be a canc erous and was treated with radiation therapy and she follows with Dr. Soni. For the past few days , she was noticing worsening shortness of breath and cough and chest pain in the right precordium. T he pain is more related to her breathing and worsening on coughing. She denied having any fevers, bu t she did complain of chills few days ago. She says she ran out of her inhalers for the past few day s, and she believes it could be because of that. When she came to the ER, she had low saturations in 88%. In the ER, she uses home oxygen with 3 liters of nasal cannula. In the ER, she was saturating 4-5 liters of nasal cannula to keep the saturations more than 92%. She had a chest x-ray in the ER s howing an evidence of a right pleural effusion, and she was diagnosed with pneumonia few weeks ago. PAST MEDICAL HISTORY: 1. Hypertension. 2. History of lung cancer. 3. Chronic obstructive pulmonary disease. 4. History of chronic respiratory failure. PAST SURGICAL HISTORY: 1. Tonsillectomy. 2. Wrist surgery. 3. Right lung biopsy, one year ago. SOCIAL HISTORY: Denies smoking. No history of alcohol, no history of illicit drug use. FAMILY HISTORY: No history of coronary artery disease or premature deaths in the family. REVIEW OF SYSTEMS: All 12 systems are reviewed with the patient thoroughly and found to be negative at this time. The following complete review of systems was negative, unless otherwise mentioned in t he HPI or below: Constitutional: Weight loss or gain, sense of well-being, ability to conduct usual activities, exercise tolerance. Skin/Breast: Rash, itching, changes in hair growth or loss, nail c hanges, breast lumps, tenderness, swelling, nipple discharge. Eyes: Vision, double vision, tearing, blind spots, pain. ENT/Mouth: Headaches (location, time of onset, duration, precipitating factors) , vertigo, lightheadedness, injury. Vision, double vision, tearing, blind spots, pain, nose bleeding, colds, obstruction, discharge, dental difficulties, gingival bleeding, dentures, neck stiffness, sofia n, tenderness, masses in thyroid or other areas. Cardiovascular: Precordial pain, substernal distre ss, palpitations, syncope, dyspnea on exertion, orthopnea, nocturnal paroxysmal dyspnea, edema, cyano sis, hypertension, heart murmurs, varicosities, phlebitis, claudication. Respiratory: Pain, shortne ss of breath, wheezing, stridor, cough, hemoptysis, fever or night sweats. Gastrointestinal: Poor a ppetite, dysphagia, indigestion, abdominal pain, heartburn, eructation, nausea, vomiting, hematemesis , jaundice, constipation, or diarrhea, abnormal stools (calrence-colored, tarry, bloody, greasy, foul sme lling), flatulence, hemorrhoids, recent changes in bowel habits. Genitourinary: Urgency, frequency, dysuria, nocturia, hematuria, polyuria, oliguria, unusual (or change in) color of urine, stones, hes itancy, change in size of stream, dribbling, acute retention or incontinence, libido, potency. Musculoskeletal: Pain, swelling, redness or heat of muscles or joints, limitation, of motion, muscul ar weakness, atrophy, cramps. Neurologic/Psychiatric: Convulsions, paralyses, tremor, incoordinatio n, paresthesias, difficulties with memory of speech, sensory or motor disturbances, or muscular coord ination (ataxia, tremor), emotional problems, anxiety, depression, previous psychiatric care, unusual perceptions, hallucinations. Allergy/Immunologic: Skin rash, anemia, bleeding tendency, polydipsia , polyuria, intolerance to heat or cold. HOME MEDICATIONS: Home medications have been reviewed and reconciled. Please see the medication lis t. PHYSICAL EXAMINATION: VITAL SIGNS: Blood pressures are 180/82, heart rate is 64, respirations 17, saturation 94% on 4 lite rs. GENERAL: The patient is moderately built and moderately nourished, does not appear to be in acute di stress. CARDIOVASCULAR: S1, S2 normal. HEENT: Atraumatic, normocephalic. PERRLA. Extraocular movements were intact. NECK: No thyromegaly, no JVD. CARDIOVASCULAR: S1, S2 normal. No murmurs, rubs, or gallops. LUNGS: Bilateral air entry was equal. Wheezing and crackles were noted in the lower bases. ABDOMEN: Soft and nontender. No guarding, no rebound tenderness. Bowel sounds normal. MUSCULOSKELETAL: No calf tenderness. No pedal edema. EXTREMITIES: No joint tenderness, no joint swelling. SKIN: No cyanosis, no erythema, no rash, no pallor. NEUROLOGIC: Cranial nerve examination II-XII intact. No focal deficits were noted. LABORATORY DATA: WBC 5.7, hemoglobin 13.3, hematocrit is 40.9, platelets is 248. Sodium 132, potassium 3.9, chloride is 103, bicarbonate is 26, BUN is 9. UA was negative for any urinary tract infection. ASSESSMENT: 1. Acute hypoxic respiratory failure. 2. Acute chronic obstructive pulmonary disease exacerbation. 3. Chest pain, likely pleuritic. 4. Hypertension, uncontrolled. 5. Hyperlipidemia. 6. History of lung cancer. PLAN: 1. Plan is to continue with the patient on albuterol nebulizer treatments as needed every 2 hours an d will do DuoNebs every 4 hours. 2. Patient has a chest pain most likely pleuritic chest pain. No evidence of any pneumonia was note d, but she does have small right pleural effusion, which she has been having for the past few weeks. We will consult Pulmonary at this time, as the patient sees Dr. Soni. 3. Patient has uncontrolled hypertension. We will restart the patient's home medications and optimi ze blood pressure is to keep it at goal less than 130/80. 4. Patient has history of lung cancer and she is closely followed up with her machine rough rounder. 5. Deep venous thrombosis prophylaxis with Lovenox 40 mg. I spent 75 minutes with this patient.
[2017-08-27] MEDS ORDERED: HYDROcodone/Acetaminophen 10/325 mg Tablet PO PRN ×2 (01:59)
[2017-08-27] MEDS: tiZANidine HCl 4 MG TAB PO PRN ×2 (06:03→17:42)
[2017-08-27] MEDS ORDERED: PROVENTIL INHALER 6.7 G (200 INHALATIONS) INH SCH (06:30)
[2017-08-27] MEDS ORDERED: Mometasone/Formoterol 120 PUFF INHALER INH SCH (06:30)
--- NOTE | 2017-08-27 07:30 | PDOC.PN ---
- Subjective Encounter Start Date: 08/27/17 Encounter Start Time: 07:29 Subjective: only complaint is her chronic pain - Objective MAR Reviewed: Yes Vital Signs & Weight: Vital Signs (12 hours) Temp Pulse Resp BP BP Pulse Ox 08/27/17 07:18 94 L 08/27/17 07:14 86 16 94 L 08/27/17 05:55 80 20 95 08/27/17 01:36 66 16 96 08/27/17 01:15 71 165/79 H 08/26/17 23:50 98.5 F 64 20 180/82 H 94 L 08/26/17 23:45 98.5 F 65 20 Weight Weight 111 lb 6.4 oz I&O: 08/26/17 08/27/17 08/28/17 06:59 06:59 06:59 Intake Total 240 Output Total 125 Balance 115 Result Diagrams: 08/26/17 15:52 08/26/17 15:52 Phys Exam - Physical Examination Neck: no JVD Respiratory: clear to auscultation bilateral NO focal findings or wheezes Cardiovascular: RRR, no significant murmur Gastrointestinal: soft, positive bowel sounds Musculoskeletal: no edema Dx/Plan (1) COPD (chronic obstructive pulmonary disease) Status: Chronic Qualifiers: Emphysema type: unspecified (2) Lung cancer Code(s): C34.90 - MALIGNANT NEOPLASM OF UNSP PART OF UNSP BRONCHUS OR LUNG Status: Acute Qualifiers: Lung location: unspecified part of lung (3) Chronic pain Code(s): G89.29 - OTHER CHRONIC PAIN Status: Chronic - Plan appears baseline, will discuss with CM, pulmonology * .
[2017-08-27] MEDS ORDERED: Potassium Chloride 20 MEQ TAB PO SCH (08:00)
[2017-08-27] MEDS: Gabapentin 300 MG CAP PO SCH ×2 (08:35→15:13)
[2017-08-27] MEDS ORDERED: Vit A,C & E/Lutein/Minerals Tablet PO SCH (09:00)
[2017-08-27] MEDS ORDERED: Non-Formulary Item 1 EACH (Budesonide-Formoterol [Symbicort 160-4.5] 2 PUFF) INH SCH (09:00)
[2017-08-27] MEDS ORDERED: Furosemide 40 MG/4 ML VIAL SLOW IVP SCH (09:00)
[2017-08-27] MEDS ORDERED: Gabapentin 300 MG CAP PO SCH (09:00)
[2017-08-27] MEDS ORDERED: Multivitamin W/ Minerals 1 TAB PO SCH (09:00)
[2017-08-27] MEDS ORDERED: Calcium Carbonate + Vit D 1 TAB PO SCH (09:00)
[2017-08-27] MEDS ORDERED: Aspirin 81 mg Enteric Coated Tablet PO SCH ×2 (09:00)
[2017-08-27] MEDS: Azithromycin 500 MG in Sodium Chloride 0.9% 250 ML 250 ML IVPB SCH ×2 (12:20→13:14)
[2017-08-27 16:33] VITALS: BP 150/65; TEMP 98.1
--- NOTE | 2017-08-27 17:44 | CON ---
DATE OF CONSULTATION: 08/27/2017 SERVICE: Pulmonary Medicine. REASON FOR CONSULTATION: Respiratory failure. HISTORY OF PRESENT ILLNESS: The patient is a very pleasant 72-year-old white female with past medica l history significant for recent diagnosis of lung cancer. She was in her usual state of health unti l she ran out of her Symbicort 1 week prior to admission. She had a slow increase in respiratory dif ficulties. She presented to the emergency department and findings consistent with a little bit of vo lume overload superimposed on severe COPD. This was all exacerbated by medical noncompliance. Ultim ately, she can afford her medications. As such, she presented to the emergency department. Overnigh t, she got a couple doses of Lasix, and was restarted on her home medications and essentially has ret urned to baseline. She currently denies any fevers, chills, nausea, vomiting or chest discomfort. S he continues to have chronic discomforts for which p.r.n. medications are helping her. PAST MEDICAL HISTORY: 1. COPD. 2. Chronic hypoxic respiratory failure. 3. Lung cancer. 4. Hypertension. PAST SURGICAL HISTORY: 1. Wrist surgery. 2. Tonsillectomy. 3. Bronchoscopy. SOCIAL HISTORY: Negative for alcohol, tobacco or illicit drug use currently. She has an extensive h istory of smoking, but has no exposure to chemicals, dust, asbestos or tuberculosis. FAMILY HISTORY: Noncontributory. ALLERGIES: NAPROXEN, SULFA. REVIEW OF SYSTEMS: General, head, ears, eyes, nose, throat, cardiovascular, respiratory, GI, , mus culoskeletal, neurologic and skin is negative except as mentioned in the HPI. PHYSICAL EXAMINATION: VITAL SIGNS: Afebrile, pulse 70, blood pressure 150/65, respirations 18, saturation 95% on room air. GENERAL: The patient is awake and alert, in no apparent distress. LUNGS: Decreased air entry. There is not much in the way of a prolonged expiratory phase. Dependen t crackles are minimal. Expiratory wheezing is present and more pronounced on forced exhalation. No rhonchi are appreciated. HEART: Normal rate, regular. ABDOMEN: Soft, nontender, nondistended. Bowel sounds are positive. MUSCULOSKELETAL: No cyanosis or clubbing. There is no pitting in the bilateral lower extremities. NEUROLOGIC: Grossly nonfocal. LABORATORY DATA: WBC 5.7, hemoglobin 13.3, platelets 248,000. INR 0.9. D-dimer 1.2. Urinalysis is unremarkable. Basic metabolic profile and liver function studies are unremarkable. Cardiac enzymes are negative x3, BNP 98. Lipase 8, magnesium 1.9. Urinalysis is unremarkable. Digoxin was below a ssay limit at 0.15. Influenza A and B are negative. ASSESSMENT: 1. Acute on chronic hypoxic respiratory failure, returned to baseline. 2. Chronic obstructive pulmonary disease. 3. Medical noncompliance/unable to afford medication, resulting in exacerbation. 4. Acute on chronic diastolic heart failure. PLAN: From my perspective, the patient is stable for transition out of the hospital home. She tells me that she has essentially returned to her usual state of health, getting back on these medications . Pulmonary Critical Care will continue to follow if she remains in house, but hopefully, she will b e a candidate for discharge first thing in the morning.
[2017-08-27] MEDS ORDERED: Atorvastatin Calcium 20 MG TAB PO SCH ×2 (21:00)
--- NOTE | 2017-08-28 02:07 | DIS ---
DATE OF ADMISSION: 08/26/2017 DATE OF DISCHARGE: 08/27/2017 PRIMARY CARE PROVIDER: Nicole Jimenez. DISCHARGE DISPOSITION: Home. FINAL DIAGNOSES: 1. Chronic obstructive pulmonary disease. 2. Chronic respiratory failure with hypoxia. 3. Lung cancer. 4. Chronic pain syndrome. 5. Noncardiac chest pain. DISCHARGE MEDICATIONS: Tizanidine 4 mg t.i.d., multivitamins, DuoNeb 3 mL q.i.d., [place] 10/325 one o r two tablets every 6 hours for pain, Neurontin 300 mg 3 times a day, Symbicort 2 puffs b.i.d., Lipit or 20 mg a day, aspirin 81 mg a day, albuterol, RespiClick one inhalation b.i.d. p.r.n. ALLERGIES: SULFA, NAPROXEN. CODE STATUS: Full. PENDING AT THE TIME OF DISCHARGE: Nothing. HOSPITAL COURSE: The patient was admitted with chronic pain, pleuritic chest pain, some shortness of breath. Her O2 sat was mid 90s on 2 liters of O2, which she has at home. Vital signs were stable o therwise. I examined her today. Her chest is clear. Comp metabolic profile was normal. CBC was un remarkable. Dr. Soni, her primary hoop flaring machine operator, was asked to see her. He agreed that she was st able for going home. She is being discharged home. She has been told to see her PCP in 1 week for delio rajan. To follow up with Dr. Soni p.r.n. She is on no dietary or ambulatory restrictions.
--- NOTE | 2017-08-31 12:23 | EKG ---
Test Reason : Blood Pressure : / mmHG Vent. Rate : 096 BPM Atrial Rate : 096 BPM P-R Int : 156 ms QRS Dur : 086 ms QT Int : 362 ms P-R-T Axes : 041 037 055 degrees QTc Int : 457 ms Sinus rhythm with Premature atrial complexes Left ventricular hypertrophy with repolarization abnormality Abnormal ECG Confirmed by ROHAN ANTONIO M.D. ([id number]), assignment desk editor YAMILE BORDEN ([id number]) on 08/31/2017 12:23:03 PM Referred By: Confirmed By:ROHAN ANTONIO M.D.
== END 2017-08-27 18:10 | disposition home or self-care (01) ==
LOC: ERS 15:16 → 2SW 22:10
PROVIDERS: ADMIT Family Medicine; ATTEND Family Medicine
DX: J96.21 Acute and chronic respiratory failure with hypoxia (principal); J44.9 Chronic obstructive pulmonary disease, unspecified; C34.90 Malignant neoplasm of unspecified part of unspecified bronchus or lung; G89.29 Other chronic pain; R07.89 Other chest pain; I11.0 Hypertensive heart disease with heart failure; I50.33 Acute on chronic diastolic (congestive) heart failure; F17.200 Nicotine dependence, unspecified, uncomplicated; Z91.14 Patient's other noncompliance with medication regimen; Z88.2 Allergy status to sulfonamides; Z88.6 Allergy status to analgesic agent; Z90.89 Acquired absence of other organs; Z98.890 Other specified postprocedural states
CPT/HCPCS: 71045; 71275; 80053; 80162; 81003; 82550; 82553; 83690; 83735; 83880; 84484 ×3; 85025; 85379; 85610; 85730; 87804 ×2; 93005; 94640 ×4; 94664; 94760; 96374; 96375; 96376; 99285; G0378; 36415; J0456; J1940; J2920; J7050; J7620

== ENCOUNTER 2017-10-07 14:21 | Outpatient (CLI) | payer MEDICARE | END 2017-10-07 14:22 | disposition home or self-care (01) | LOC: BICMAMMO 14:21 | PROVIDERS: ATTEND Nurse Practitioner Family | DX: Z12.31 Encounter for screening mammogram for malignant neoplasm of breast (principal) | CPT/HCPCS: 77063; 77067 ==

== ENCOUNTER 2018-01-08 13:19 | Outpatient (CLI) | payer MEDICARE ==
[~2018-01-08 13:19] MED LIST changes: -ISOVUE-370 76%-LOCM 1 ML ONE; +Iopamidol 370 76% 100 ML VIAL ONE
--- NOTE | 2018-01-08 14:44 | CT ---
CT OF CHEST PERFORMED WITH INTRAVENOUS CONTRAST ENHANCEMENT: HISTORY: Lung cancer restaging. COMPARISON: A 10/31/16 study as well as a 08/26/17 CT angio of the chest. FINDINGS: There is a stable appearance to the left upper lobe pulmonary nodule which shows some central calcifi cation. It measures approximately 8-9 mm in size, most likely a granuloma. There are severe emphysematous lung changes seen. Parenchymal changes in the right mid lung field ap pear mainly related to scar without a definite mass or soft tissue component to this. No new pulmonary lesions are identified. I do not appreciate any significant mediastinal or hilar lymphadenopathy. There is stable appearance to the subcarinal node measuring 9-10 mm. Visualized liver parenchyma is normal. The right and left adrenal glands are normal. Review of osseous structures showed multilevel vertebroplasty change. The bones are diffusely demine ralized. IMPRESSION: 1. Parenchymal scarring extending from the right hilar region without a definite soft tissue mass co mponent. 2. Stable partially calcified granuloma of the left upper lobe. 3. Severe chronic obstructive pulmonary disease changes. POS: [facility]
== END 2018-01-08 13:20 | disposition home or self-care (01) ==
LOC: CT 13:19
PROVIDERS: ATTEND Radiology Radiation Oncology
DX: C34.90 Malignant neoplasm of unspecified part of unspecified bronchus or lung (principal); J84.10 Pulmonary fibrosis, unspecified
CPT/HCPCS: 71260; 82565

== ENCOUNTER 2018-10-07 12:46 | Outpatient (CLI) | payer MEDICARE ==
[~2018-10-07 12:46] MED LIST changes: +ISOVUE-370 76%-LOCM 1 ML ONE; -Iopamidol 370 76% 100 ML VIAL ONE
--- NOTE | 2018-10-07 15:47 | CT ---
CT CHEST WITH CONTRAST: 10/07/18 HISTORY: Lung cancer. Radiation. Restaging. COMPARISON: CT chest 01/08/18. FINDINGS: The linear fibrosis in the right upper lobe is more confluent than the comparison examination with in ternal calcifications is felt to be chronic. There is severe emphysema. No suspicious pulmonary nodul e. No pneumothorax. No effusion. Thyroid is unremarkable. Extensive atherosclerotic plaque throughout the aorta without aneurysmal dil atation. No mediastinal adenopathy. There are compression deformities with indwelling cement at T8, T9 and T10 as well as T12. The T12 fracture is retropulsion. There is also T10 retropulsion. There are also fra ctures of T7 with approximately 20% height loss. Superior end plate height loss T6 is present. Sternum and manubrium are intact. There is sclerosis of a nonunion right anterior fourth rib fracture . Osteonecrosis is possible. No acute rib fractures appreciated. Old left lateral 8th rib fracture. IMPRESSION: No evidence for disease recurrence or metastasis. POS: [facility]
== END 2018-10-07 12:47 | disposition home or self-care (01) ==
LOC: BICCT 12:46
PROVIDERS: ATTEND Radiology Radiation Oncology
DX: Z08 Encounter for follow-up examination after completed treatment for malignant neoplasm (principal); Z85.118 Personal history of other malignant neoplasm of bronchus and lung
CPT/HCPCS: 71260; 82565; Q9966

== ENCOUNTER 2019-02-06 14:49 | Outpatient (CLI) | payer MEDICARE ==
--- NOTE | 2019-02-06 16:05 | MMO ---
Bilateral MAMMO Bilat Screen [facility]. CLINICAL HISTORY: Patient is 73 years old and is seen for screening. The patient has the following family history of breast cancer: mother, IN HER 60'S and sister, malignant (generic). The patient has no personal history of cancer. VIEWS: The views performed were: bilateral craniocaudal with tomosynthesis; bilateral mediolateral oblique with tomosynthesis; and left mediolateral oblique. FILMS COMPARED: The present examination has been compared to prior imaging studies performed at [facility] on 04/03/2016 and 10/07/2017. MAMMOGRAM FINDINGS: The breasts are heterogeneously dense, which could obscure a lesion on mammography. There are no suspicious masses, calcifications or areas of architectural distortion. There are benign appearing calcifications in both breasts. There are no suspicious masses, suspicious calcifications, or new areas of architectural distortion. IMPRESSION: THERE IS NO MAMMOGRAPHIC EVIDENCE OF MALIGNANCY. A ROUTINE FOLLOW-UP MAMMOGRAM IN 1 YEAR IS RECOMMENDED. THE RESULTS OF THIS EXAM WERE SENT TO THE PATIENT. ACR BI-RADS Category 2 - Benign finding MAMMOGRAPHY NOTE: 1. A negative mammogram report should not delay a biopsy if a dominant of clinically suspicious mass is present. 2. Approximately 10% to 15% of breast cancers are not detected by mammography. 3. Adenosis and dense breasts may obscure an underlying neoplasm. Reported by: JAMES CORMIER MD Electonically Signed: [id number]
== END 2019-02-06 14:50 | disposition home or self-care (01) ==
LOC: BICMAMMO 14:49
PROVIDERS: ATTEND Nurse Practitioner Family
DX: Z12.31 Encounter for screening mammogram for malignant neoplasm of breast (principal); Z80.3 Family history of malignant neoplasm of breast
CPT/HCPCS: 77063; 77067

== ENCOUNTER 2020-05-05 13:53 | Outpatient (CLI) | payer MEDICARE ==
--- NOTE | 2020-05-05 15:18 | MMO ---
Bilateral MAMMO Bilat Diag [facility]. CLINICAL HISTORY: Patient is 75 years old and is seen for diagnostic exam. The patient has the following family history of breast cancer: mother, IN HER 60'S and sister, malignant (generic). The patient has no personal history of cancer. VIEWS: The views performed were: bilateral craniocaudal with tomosynthesis; bilateral mediolateral oblique with tomosynthesis; and bilateral mediolateral with tomosynthesis. FILMS COMPARED: The present examination has been compared to prior imaging studies performed at [facility] on 10/07/2017, 02/06/2019 and 05/05/2020. This study has been interpreted with the assistance of computer-aided detection. MAMMOGRAM FINDINGS: The breasts are heterogeneously dense, which could obscure a lesion on mammography. Finding 1: There are stable benign appearing calcifications seen in both breasts. Finding 2: Palpable findings upper outer , and lower inner aspect of both breasts No mammographic or ultrasound finding to account for the palpable findings . There are no suspicious masses, suspicious calcifications, or new areas of architectural distortion. IMPRESSION: THERE IS NO MAMMOGRAPHIC EVIDENCE OF MALIGNANCY. A ROUTINE FOLLOW-UP MAMMOGRAM IN 1 YEAR IS RECOMMENDED. THE RESULTS OF THIS EXAM WERE SENT TO THE PATIENT. ACR BI-RADS Category 2 - Benign finding MAMMOGRAPHY NOTE: 1. A negative mammogram report should not delay a biopsy if a dominant of clinically suspicious mass is present. 2. Approximately 10% to 15% of breast cancers are not detected by mammography. 3. Adenosis and dense breasts may obscure an underlying neoplasm. Reported by: YONATAN GONG MD Electonically Signed: [id number]
--- NOTE | 2020-05-05 17:05 | ULT ---
EXAM: LEFT BREAST ULTRASOUND: 05/05/20 HISTORY: Patient presents with two palpable findings in the left breast, one at approximately the 4 o'clock po sition, the other one in approximately the 7 o'clock position. These areas are both evaluated with ul trasound. There is some minimal asymmetric glandular tissue in the left breast at 4 o'clock. No evide nce for solid or cystic mass. The underlying patient's ribs are somewhat superficial at these locatio n and it is conceivable that they could account for some palpable findings. IMPRESSION: BIRADS 2: Benign Finding(s) Routine annual screening mammography (for women over age 40). POS: OFF
--- NOTE | 2020-05-05 17:07 | ULT ---
EXAM: RIGHT BREAST ULTRASOUND: 05/05/20 HISTORY: Patient presents with two palpable findings. One in the 4 o'clock position, and the other one in the 9 o'clock position. These areas of palpable concern are evaluate with ultrasound. There is some asymmetric echoic glandul ar tissue in both of these regions which could possible account for some palpable findings. No solid or cystic or evidence for malignancy. IMPRESSION: BIRADS 2: Benign Finding(s) Routine annual screening mammography (for women over age 40). No evidence for malignancy. POS: OFF
== END 2020-05-05 13:54 | disposition home or self-care (01) ==
LOC: BICMAMMO 13:53
PROVIDERS: ATTEND Nurse Practitioner Family
DX: N63.0 Unspecified lump in unspecified breast (principal); C34.91 Malignant neoplasm of unspecified part of right bronchus or lung; C34.92 Malignant neoplasm of unspecified part of left bronchus or lung; Z99.81 Dependence on supplemental oxygen; Z80.3 Family history of malignant neoplasm of breast; R92.8 Other abnormal and inconclusive findings on diagnostic imaging of breast
CPT/HCPCS: 76642 ×2; 77066; G0279

== ENCOUNTER 2020-10-27 13:26 | Outpatient (CLI) | payer MEDICARE | END 2020-10-27 13:27 | disposition home or self-care (01) | LOC: BICMAMMO 13:26 | PROVIDERS: ATTEND Nurse Practitioner Family | DX: Z13.820 Encounter for screening for osteoporosis (principal); C34.91 Malignant neoplasm of unspecified part of right bronchus or lung; E78.5 Hyperlipidemia, unspecified; F33.1 Major depressive disorder, recurrent, moderate; G89.4 Chronic pain syndrome; I11.0 Hypertensive heart disease with heart failure; I50.32 Chronic diastolic (congestive) heart failure; J44.9 Chronic obstructive pulmonary disease, unspecified; K21.9 Gastro-esophageal reflux disease without esophagitis; N18.2 Chronic kidney disease, stage 2 (mild); R91.1 Solitary pulmonary nodule; Z72.0 Tobacco use; Z92.3 Personal history of irradiation; Z99.81 Dependence on supplemental oxygen; R89.9 Unspecified abnormal finding in specimens from other organs, systems and tissues; Z12.11 Encounter for screening for malignant neoplasm of colon; I13.0 Hypertensive heart and chronic kidney disease with heart failure and stage 1 through stage 4 chronic kidney disease, or unspecified chronic kidney disease; M81.0 Age-related osteoporosis without current pathological fracture | CPT/HCPCS: 77080 ==

== ENCOUNTER 2020-10-27 13:44 | Outpatient (CLI) | payer MEDICARE | END 2020-10-27 13:45 | disposition home or self-care (01) | LOC: BICCT 13:44 | PROVIDERS: ATTEND Nurse Practitioner Family | DX: Z12.2 Encounter for screening for malignant neoplasm of respiratory organs (principal); Z87.891 Personal history of nicotine dependence; J44.9 Chronic obstructive pulmonary disease, unspecified; C34.91 Malignant neoplasm of unspecified part of right bronchus or lung; N18.2 Chronic kidney disease, stage 2 (mild); R91.1 Solitary pulmonary nodule; Z72.0 Tobacco use; Z92.3 Personal history of irradiation; Z99.81 Dependence on supplemental oxygen | CPT/HCPCS: 71271 ==

== ENCOUNTER 2020-12-06 10:19 | Outpatient (CLI) | payer MEDICARE | END 2020-12-06 10:20 | disposition home or self-care (01) | LOC: PET 10:19 | PROVIDERS: ATTEND Internal Medicine Critical Care Medicine | DX: C34.01 Malignant neoplasm of right main bronchus (principal) | CPT/HCPCS: 78815; A9552 ==

== ENCOUNTER 2020-12-12 14:09 | Outpatient (CLI) | payer MEDICARE ==
[2020-12-12 17:41] LABS: Hemoglobin 12.7 g/dL (12.0-15.5); Mean Corpuscular HGB CONC 31.8 g/dL (32.0-36.0); Mean Corpuscular Hemoglobin 30.7 pg (27.0-33.0); Mean Corpuscular Volume 96.4 fl (81.6-98.3); Mean Platelet Volume 9.4 fl (7.4-10.4); Platelet Count 271 10x3/uL (150-450); RBC Distribution Width 13.3 % (11.5-14.5); Red Blood Cell (RBC) Count 4.14 10x6/uL (3.90-5.03); White Blood Cell (WBC) Count 7.6 10x3/uL (3.5-10.5)
[2020-12-12 17:48] LABS: Anion Gap 14 mmol/L (10-20); BUN (Urea Nitrogen) 8 mg/dL (9.8-20.1); Calc. Creatinine Clearance 0 mL/min (70-130); Calcium 8.7 mg/dL (7.8-10.44); Carbon Dioxide 29 mmol/L (23-31); Chloride 98 mmol/L (98-107); Glucose 94 mg/dL (83-110); Potassium 4.2 mmol/L (3.5-5.1); Sodium 137 mmol/L (136-145)
[2020-12-13 02:11] LABS: SARS-CoV-2 PCR by NAA Not Detected (NotDetected)
== END 2020-12-12 14:10 | disposition home or self-care (01) ==
LOC: LABBT 14:09
PROVIDERS: ATTEND Thoracic Surgery (Cardiothoracic Vascular Surgery)
DX: Z01.818 Encounter for other preprocedural examination (principal); R59.0 Localized enlarged lymph nodes; Z20.822 Contact with and (suspected) exposure to COVID-19
CPT/HCPCS: 80048; 85027; 93005; U0003; U0005; 87635; 93010

== ENCOUNTER 2020-12-16 10:51 | Day surgery (SDC) | payer MEDICARE ==
[2020-12-15 14:54] VITALS: BMI 22.3
[2020-12-16] MEDS ORDERED: Bupivacaine PF 0.5% 30 ML VIAL ONE (11:34)
[2020-12-16] MEDS ORDERED: EPINEPHrine 1 MG/ML AMP ONE (11:34)
[2020-12-16] MEDS ORDERED: Fentanyl 100 MCG/2 ML VIAL ONE ×2 (11:44→14:11)
[2020-12-16] MEDS ORDERED: SUGAMMADEX SODIUM 200 MG/2 ML VIAL ONE (11:56)
[2020-12-16] MEDS ORDERED: Rocuronium Bromide 10 MG/ML (10ML VIAL) ONE (12:12)
[2020-12-16] MEDS ORDERED: PHENYLEPHRINE-NS 100 MCG/ML 10 ML SYRINGE ONE (12:12)
[2020-12-16] MEDS ORDERED: Lidocaine 1% PF 5 ML VIAL ONE ×2 (12:12)
[2020-12-16] MEDS ORDERED: Dexamethasone 20 MG/5 ML VIAL ONE (12:12)
[2020-12-16] MEDS ORDERED: PROPOFOL 200 MG/20 ML VIAL ONE (12:12)
[2020-12-16] MEDS ORDERED: SUGAMMADEX SODIUM 500 MG/5 ML VIAL ONE (13:00)
== END 2020-12-16 15:40 | disposition home or self-care (01) ==
LOC: SDC 10:51
PROVIDERS: ATTEND Thoracic Surgery (Cardiothoracic Vascular Surgery)
PROC: 07B74ZX Excision of Thorax Lymphatic, Percutaneous Endoscopic Approach, Diagnostic (ICD-10-PCS; principal; 2020-12-16)
DX: C78.1 Secondary malignant neoplasm of mediastinum (principal); C34.90 Malignant neoplasm of unspecified part of unspecified bronchus or lung; Z79.899 Other long term (current) drug therapy; Z88.2 Allergy status to sulfonamides; Z88.6 Allergy status to analgesic agent
CPT/HCPCS: 88305; 88307; 88313; 88331; 88341; 88342; J0171; J0690; J1100; J2704; J3010; S0020

== ENCOUNTER 2021-01-16 13:02 | Outpatient (CLI) | payer MEDICARE ==
[~2021-01-16 13:02] MED LIST changes: -ISOVUE-370 76%-LOCM 1 ML ONE; +Iopamidol-370 76% 500 ML 1 ML ONE
== END 2021-01-16 13:03 | disposition home or self-care (01) ==
LOC: BICCT 13:02
PROVIDERS: ATTEND Internal Medicine Hematology & Oncology
DX: C34.90 Malignant neoplasm of unspecified part of unspecified bronchus or lung (principal)
CPT/HCPCS: 70470; 82565; Q9967

== ENCOUNTER 2021-01-21 15:28 | Emergency (ER) | payer MEDICARE ==
[2021-01-21] MEDS ORDERED: HYDROcodone/Acetaminophen 10/325 mg Tablet ONE (16:23)
[2021-01-21 17:06] LABS: #Lymphocytes 1.1 thou/uL (1.20-3.40); #Monocytes 0.8 thou/uL (0.11-0.59); #Neutrophils 10.2 thou/uL (1.40-6.50); %Basophils 0.3 % (0.0-1.0); %Eosinophils 0.4 % (0.0-10.0); %Lymphocytes 9.2 % (21.0-51.0); %Monocytes 6.7 % (0.0-10.0); %Neutrophils 83.5 % (42.0-75.0); Hemoglobin 13.4 g/dL (12.0-16.0); Mean Corpuscular HGB CONC 33.7 g/dL (32.0-36.0); Mean Corpuscular Hemoglobin 32.5 pg (27.0-31.0); Mean Corpuscular Volume 96.4 fL (78.0-98.0); Mean Platelet Volume 6.4 fL (7.4-10.4); Platelet Count 389 thou/uL (130-400); RBC Distribution Width 12.2 % (11.5-14.5); Red Blood Cell (RBC) Count 4.12 mill/uL (4.20-5.40); White Blood Cell (WBC) Count 12.2 thou/uL (4.8-10.8)
[2021-01-21 17:31] LABS: ALT (SGPT) 16 U/L (8-55); AST (SGOT) 21 U/L (5-34); Albumin 3.5 g/dL (3.4-4.8); Alkaline Phosphatase 142 U/L (40-110); Anion Gap 19 mmol/L (10-20); BUN (Urea Nitrogen) 9 mg/dL (9.8-20.1); Bilirubin, Total 0.3 mg/dL (0.2-1.2); Calc. Creatinine Clearance 0 mL/min (70-130); Calcium 9.3 mg/dL (7.8-10.44); Carbon Dioxide 24 mmol/L (23-31); Chloride 100 mmol/L (98-107); Globulin 3.1 g/dL (2.4-3.5); Glucose 108 mg/dL (83-110); Potassium 4.2 mmol/L (3.5-5.1); Protein, Total 6.6 g/dL (5.8-8.1); Sodium 139 mmol/L (136-145)
== END 2021-01-21 21:37 | disposition home or self-care (01) ==
LOC: ERS 15:28
DX: J90 Pleural effusion, not elsewhere classified (principal); J44.9 Chronic obstructive pulmonary disease, unspecified; I70.90 Unspecified atherosclerosis; Z87.891 Personal history of nicotine dependence; Z85.118 Personal history of other malignant neoplasm of bronchus and lung; Z79.891 Long term (current) use of opiate analgesic; Z79.899 Other long term (current) drug therapy
CPT/HCPCS: 71045; 71275; 80053; 84484; 85025; 93005; Q9967

== ENCOUNTER 2021-03-14 11:02 | Outpatient (CLI) | payer MEDICARE | END 2021-03-14 11:03 | disposition home or self-care (01) | LOC: BICRAD 11:02 | PROVIDERS: ATTEND Internal Medicine Critical Care Medicine | DX: R06.00 Dyspnea, unspecified (principal); J90 Pleural effusion, not elsewhere classified | CPT/HCPCS: 71046 ==

== ENCOUNTER 2021-04-13 09:20 | Outpatient (CLI) | payer MEDICARE | END 2021-04-13 09:21 | disposition home or self-care (01) | LOC: CT 09:20 | PROVIDERS: ATTEND Specialist | DX: S22.059A Unspecified fracture of T5-T6 vertebra, initial encounter for closed fracture (principal); J90 Pleural effusion, not elsewhere classified; Z98.890 Other specified postprocedural states | CPT/HCPCS: 72128 ==

== ENCOUNTER 2021-04-16 20:24 | Inpatient (IN) | payer MEDICARE ==
[2021-04-16] MEDS ORDERED: Morphine 2 MG/ML VIAL ONE ×2 (21:37→23:42)
[2021-04-16 21:40] LABS: #Basophils 0.1 thou/uL (0.0-0.2); #Eosinphils 0.1 thou/uL (0.0-0.7); #Lymphocytes 0.9 thou/uL (1.20-3.40); #Monocytes 1.5 thou/uL (0.11-0.59); #Neutrophils 7.6 thou/uL (1.40-6.50); %Basophils 0.6 % (0.0-1.0); %Eosinophils 1.3 % (0.0-10.0); %Lymphocytes 8.7 % (21.0-51.0); %Monocytes 14.6 % (0.0-10.0); %Neutrophils 74.8 % (42.0-75.0); Mean Corpuscular HGB CONC 31.9 g/dL (32.0-36.0); Mean Corpuscular Hemoglobin 31.3 pg (27.0-31.0); Mean Corpuscular Volume 98.1 fL (78.0-98.0); Mean Platelet Volume 6.5 fL (7.4-10.4); Platelet Count 364 thou/uL (130-400); RBC Distribution Width 16.1 % (11.5-14.5); Red Blood Cell (RBC) Count 3.85 mill/uL (4.20-5.40); White Blood Cell (WBC) Count 10.2 thou/uL (4.8-10.8)
[2021-04-16 22:04] LABS: ALT (SGPT) 12 U/L (8-55); AST (SGOT) 15 U/L (5-34); Albumin 3.3 g/dL (3.4-4.8); Alkaline Phosphatase 155 U/L (40-110); Anion Gap 20 mmol/L (10-20); BUN (Urea Nitrogen) 12 mg/dL (9.8-20.1); Bilirubin, Total 0.4 mg/dL (0.2-1.2); Calc. Creatinine Clearance 0 mL/min (70-130); Calcium 8.1 mg/dL (7.8-10.44); Carbon Dioxide 24 mmol/L (23-31); Chloride 93 mmol/L (98-107); Globulin 2.7 g/dL (2.4-3.5); Glucose 87 mg/dL (83-110); Lipase 5 U/L (8-78); Potassium 4.1 mmol/L (3.5-5.1); Sodium 133 mmol/L (136-145)
[2021-04-16 22:26] LABS: CKMB 4.8 ng/mL (0-6.6)
[2021-04-17 00:13] LABS: Bacteria/HPF 3+ HPF (None Seen); Bilirubin Negative (Negative); Blood, Urine Negative (Negative); Clarity Clear (Clear); Glucose, Urine (Dipstick) Normal (Negative); Ketone, Urine 100 mg/dL (Negative); Leukocyte 75 Leu/uL (Negative); Nitrite 2+ (Negative); Protein, Urine (Dipstick) 50 mg/dL (Neg-Trace); RBC/HPF 0-3 HPF (0-3); Specific Gravity, Urine 1.022 (1.002-1.036); Squamous Epithelial 0-3 HPF (0-3); Urobilinogen Normal mg/dL (Less than 2); WBC/HPF 21-50 HPF (0-3)
[2021-04-17] MEDS ORDERED: cefTRIAXone\\ROCEPHIN 1 GM VIAL ONE (00:40)
[2021-04-17] MEDS ORDERED: Aspirin 325 MG TAB ONE (00:40)
[2021-04-17] MEDS ORDERED: Acetaminophen 325 MG TAB PO PRN (02:37)
[2021-04-17] MEDS ORDERED: hydrALAZINE 20 MG/ML VIAL SLOW IVP PRN (02:53)
[2021-04-17 02:54] LABS: SARS-CoV-2 NAA Rapid Test Not Detected (NotDetected)
[2021-04-17] MEDS ORDERED: Lidocaine 5% Patch TD SCH (03:00)
[2021-04-17] MEDS ORDERED: Morphine 2 MG/ML VIAL ONE ×3 (03:20→10:43)
[2021-04-17] MEDS: Morphine 2 MG/ML VIAL SLOW IVP PRN ×4 (03:21→21:00)
[2021-04-17 04:50] LABS: Anion Gap 16 mmol/L (10-20); BUN (Urea Nitrogen) 10 mg/dL (9.8-20.1); Calc. Creatinine Clearance 0 mL/min (70-130); Calcium 7.7 mg/dL (7.8-10.44); Carbon Dioxide 26 mmol/L (23-31); Chloride 95 mmol/L (98-107); Glucose 70 mg/dL (83-110); Potassium 3.9 mmol/L (3.5-5.1); Sodium 133 mmol/L (136-145)
[2021-04-17 04:51] LABS: Band 3 % (5-11); Eosinophils 2 % (0-10); Hemoglobin 10.4 g/dL (12.0-16.0); Hypochromia SLIGHT = 6-15 cells (100X) (0-5/hpf); Lymphocytes 15 % (21-51); MDiff Complete? YES; Mean Corpuscular HGB CONC 32.4 g/dL (32.0-36.0); Mean Corpuscular Hemoglobin 31.8 pg (27.0-31.0); Mean Corpuscular Volume 98.1 fL (78.0-98.0); Mean Platelet Volume 6.4 fL (7.4-10.4); Monocytes 9 % (0-10); Neutrophil 71 % (42-75); Platelet Count 317 thou/uL (130-400); Platelet Morphology Comment Appears Adequate; Red Blood Cell (RBC) Count 3.27 mill/uL (4.20-5.40); White Blood Cell (WBC) Count 8.1 thou/uL (4.8-10.8)
[2021-04-17] MEDS ORDERED: HYDROcodone/Acetaminophen 5/325 mg Tablet ONE (10:49)
[2021-04-17] MEDS: Enoxaparin Sodium 40 MG/0.4 ML SYRINGE SC SCH (10:50)
[2021-04-17] MEDS ORDERED: Enoxaparin Sodium 40 MG/0.4 ML SYRINGE ONE (10:50)
[2021-04-17] MEDS: HYDROcodone/Acetaminophen 5/325 mg Tablet PO PRN ×2 (10:56→18:22)
[2021-04-17] MEDS ORDERED: Iopamidol 370 76% 100 ML VIAL ONE (11:04)
[2021-04-17] MEDS ORDERED: Fentanyl 100 MCG/2 ML VIAL ONE (11:34)
[2021-04-17] MEDS ORDERED: EPINEPHrine 1 MG/ML VIAL ONE (11:41)
[2021-04-17 14:56] LABS: Troponin I 0.034 ng/mL (< 0.028)
[2021-04-17 15:11] VITALS: BMI 20.2
[2021-04-17] MEDS ORDERED: Transdermal Patch Removal TOP SCH (21:00)
[2021-04-17] MEDS: Gabapentin 300 MG CAP PO SCH (21:00)
[2021-04-17] MEDS: Atorvastatin Calcium 20 MG TAB PO SCH (21:00)
[2021-04-17] MEDS ORDERED: HYDROcodone/Acetaminophen 10/325 mg Tablet PO SCH (23:26)
[2021-04-17] MEDS ORDERED: ALPRAZolam 0.5 MG TAB PO SCH (23:26)
[2021-04-18] MEDS: cefTRIAXone\\ROCEPHIN 1 GM in Sodium Chloride 0.9% 100 ML IVPB SCH ×2 (00:57→23:52)
[2021-04-18] MEDS: Morphine 2 MG/ML VIAL SLOW IVP PRN ×2 (06:10→10:17)
[2021-04-18 08:25] LABS: Hemoglobin 10.3 g/dL (12.0-16.0); Mean Corpuscular HGB CONC 31.5 g/dL (32.0-36.0); Mean Corpuscular Hemoglobin 31.3 pg (27.0-31.0); Mean Corpuscular Volume 99.3 fL (78.0-98.0); Mean Platelet Volume 6.3 fL (7.4-10.4); Platelet Count 313 thou/uL (130-400); RBC Distribution Width 15.9 % (11.5-14.5); Red Blood Cell (RBC) Count 3.28 mill/uL (4.20-5.40); White Blood Cell (WBC) Count 6.8 thou/uL (4.8-10.8)
[2021-04-18 08:43] LABS: Anion Gap 17 mmol/L (10-20); BUN (Urea Nitrogen) 6 mg/dL (9.8-20.1); Calc. Creatinine Clearance 64 mL/min (70-130); Calcium 7.9 mg/dL (7.8-10.44); Carbon Dioxide 25 mmol/L (23-31); Chloride 97 mmol/L (98-107); Magnesium 1.4 mg/dL (1.6-2.6); Potassium 3.4 mmol/L (3.5-5.1); Sodium 136 mmol/L (136-145)
[2021-04-18 08:46] LABS: Glucose 56 mg/dL (83-110)
[2021-04-18 08:48] LABS: Band 5 % (5-11); Eosinophils 5 % (0-10); Lymphocytes 11 % (21-51); MDiff Complete? YES; Monocytes 9 % (0-10); Neutrophil 70 % (42-75)
[2021-04-18] MEDS: Calcium Carbonate 600 MG + Vit D TAB PO SCH (08:51)
[2021-04-18] MEDS: Gabapentin 300 MG CAP PO SCH ×3 (08:52→20:01)
[2021-04-18] MEDS: Enoxaparin Sodium 40 MG/0.4 ML SYRINGE SC SCH (08:53)
[2021-04-18] MEDS ORDERED: Lidocaine 5% Patch TD SCH (09:00)
[2021-04-18] MEDS ORDERED: Potassium Chloride 20 MEQ TAB PO SCH (09:15)
[2021-04-18] MEDS ORDERED: Magnesium Sulfate 4 GM in Sodium Chloride 0.9% 250 ML 250 ML IVPB SCH (10:00)
[2021-04-18] MEDS: HYDROcodone/Acetaminophen 5/325 mg Tablet PO PRN ×2 (18:13→23:55)
[2021-04-18] MEDS: Atorvastatin Calcium 20 MG TAB PO SCH (20:01)
[2021-04-19] MEDS ORDERED: Melatonin 3 MG TAB PO PRN (01:23)
[2021-04-19] MEDS: HYDROcodone/Acetaminophen 10/325 mg Tablet PO PRN ×4 (03:31→23:39)
[2021-04-19 06:05] LABS: Band 13 % (5-11); Hemoglobin 10.3 g/dL (12.0-16.0); Hypochromia SLIGHT = 6-15 cells (100X) (0-5/hpf); Lymphocytes 4 % (21-51); MDiff Complete? YES; Mean Corpuscular HGB CONC 30.8 g/dL (32.0-36.0); Mean Corpuscular Hemoglobin 30.7 pg (27.0-31.0); Mean Corpuscular Volume 99.8 fL (78.0-98.0); Mean Platelet Volume 6.7 fL (7.4-10.4); Monocytes 14 % (0-10); Neutrophil 69 % (42-75); Platelet Count 298 thou/uL (130-400); Platelet Morphology Comment Appears Decreased; RBC Distribution Width 16.2 % (11.5-14.5); Red Blood Cell (RBC) Count 3.35 mill/uL (4.20-5.40)
[2021-04-19 06:15] LABS: Anion Gap 14 mmol/L (10-20); BUN (Urea Nitrogen) 6 mg/dL (9.8-20.1); Calc. Creatinine Clearance 68 mL/min (70-130); Calcium 7.7 mg/dL (7.8-10.44); Carbon Dioxide 30 mmol/L (23-31); Chloride 97 mmol/L (98-107); Glucose 105 mg/dL (83-110); Potassium 4.2 mmol/L (3.5-5.1); Sodium 137 mmol/L (136-145)
[2021-04-19 06:19] LABS: Magnesium 1.7 mg/dL (1.6-2.6)
[2021-04-19] MEDS ORDERED: Lidocaine 1% w/Epinephrine 1:100K 20 ML VIAL ONE (08:53)
[2021-04-19] MEDS ORDERED: Lidocaine 1% w/Epinephrine 1:100K 20 ML VIAL FS SCH (09:15)
[2021-04-19] MEDS: Calcium Carbonate 600 MG + Vit D TAB PO SCH (09:27)
[2021-04-19] MEDS: HYDROcodone/Acetaminophen 5/325 mg Tablet PO PRN (09:27)
[2021-04-19] MEDS: Gabapentin 300 MG CAP PO SCH ×3 (09:28→20:11)
[2021-04-19] MEDS: Enoxaparin Sodium 40 MG/0.4 ML SYRINGE SC SCH (09:28)
[2021-04-19] MEDS: Atorvastatin Calcium 20 MG TAB PO SCH (20:11)
[2021-04-19] MEDS: cefTRIAXone\\ROCEPHIN 1 GM in Sodium Chloride 0.9% 100 ML IVPB SCH (23:39)
[2021-04-20] MEDS: HYDROcodone/Acetaminophen 10/325 mg Tablet PO PRN ×3 (03:55→20:41)
[2021-04-20 05:02] LABS: Anion Gap 11 mmol/L (10-20); BUN (Urea Nitrogen) 8 mg/dL (9.8-20.1); Band 9 % (5-11); Calc. Creatinine Clearance 71 mL/min (70-130); Calcium 7.6 mg/dL (7.8-10.44); Carbon Dioxide 33 mmol/L (23-31); Chloride 96 mmol/L (98-107); Eosinophils 3 % (0-10); Glucose 99 mg/dL (83-110); Hemoglobin 11.3 g/dL (12.0-16.0); Hypochromia SLIGHT = 6-15 cells (100X) (0-5/hpf); Lymphocytes 13 % (21-51); MDiff Complete? YES; Mean Corpuscular HGB CONC 30.2 g/dL (32.0-36.0); Mean Corpuscular Hemoglobin 30.3 pg (27.0-31.0); Mean Platelet Volume 6.9 fL (7.4-10.4); Monocytes 24 % (0-10); Neutrophil 50 % (42-75); Platelet Count 307 thou/uL (130-400); Platelet Morphology Comment Appears Adequate; Potassium 4.5 mmol/L (3.5-5.1); RBC Distribution Width 16.5 % (11.5-14.5); Reactive Lymphocytes 1 % (0-10); Red Blood Cell (RBC) Count 3.74 mill/uL (4.20-5.40); Sodium 135 mmol/L (136-145); White Blood Cell (WBC) Count 6.2 thou/uL (4.8-10.8)
[2021-04-20] MEDS: Calcium Carbonate 600 MG + Vit D TAB PO SCH (08:59)
[2021-04-20] MEDS: Gabapentin 300 MG CAP PO SCH ×3 (09:00→20:53)
[2021-04-20] MEDS: HYDROcodone/Acetaminophen 5/325 mg Tablet PO PRN (09:02)
[2021-04-20] MEDS: Ondansetron PF 4 MG/2 ML Vial IVP PRN (10:18)
[2021-04-20] MEDS: Enoxaparin Sodium 40 MG/0.4 ML SYRINGE SC SCH (13:14)
[2021-04-20] MEDS: Atorvastatin Calcium 20 MG TAB PO SCH (20:53)
[2021-04-20] MEDS: cefTRIAXone\\ROCEPHIN 1 GM in Sodium Chloride 0.9% 100 ML IVPB SCH (23:43)
[2021-04-20] MEDS ORDERED: Lidocaine 2% Viscous Solution 10 ML, Aluminum & Magnesium Hydroxide 30 ML SSW SCH (23:45)
[2021-04-21] MEDS: HYDROcodone/Acetaminophen 10/325 mg Tablet PO PRN ×6 (00:27→22:02)
[2021-04-21] MEDS: Calcium Carbonate 600 MG + Vit D TAB PO SCH (07:44)
[2021-04-21] MEDS: Enoxaparin Sodium 40 MG/0.4 ML SYRINGE SC SCH (07:44)
[2021-04-21] MEDS: Gabapentin 300 MG CAP PO SCH ×3 (07:44→20:30)
[2021-04-21] MEDS: Atorvastatin Calcium 20 MG TAB PO SCH (20:30)
[2021-04-22] MEDS: cefTRIAXone\\ROCEPHIN 1 GM in Sodium Chloride 0.9% 100 ML IVPB SCH (00:44)
[2021-04-22] MEDS: HYDROcodone/Acetaminophen 10/325 mg Tablet PO PRN ×4 (01:44→17:54)
[2021-04-22] MEDS: Calcium Carbonate 500 MG ChewTAB PO PRN ×2 (05:02→17:54)
[2021-04-22 08:27] LABS: #Basophils 0.1 thou/uL (0.0-0.2); #Eosinphils 0.6 thou/uL (0.0-0.7); #Monocytes 1.1 thou/uL (0.11-0.59); #Neutrophils 4.8 thou/uL (1.40-6.50); %Basophils 0.9 % (0.0-1.0); %Eosinophils 8.2 % (0.0-10.0); %Lymphocytes 13.3 % (21.0-51.0); %Monocytes 13.9 % (0.0-10.0); %Neutrophils 63.8 % (42.0-75.0); Hemoglobin 11.1 g/dL (12.0-16.0); Mean Corpuscular HGB CONC 30.8 g/dL (32.0-36.0); Mean Platelet Volume 6.5 fL (7.4-10.4); Platelet Count 385 thou/uL (130-400); RBC Distribution Width 16.5 % (11.5-14.5); Red Blood Cell (RBC) Count 3.58 mill/uL (4.20-5.40); White Blood Cell (WBC) Count 7.6 thou/uL (4.8-10.8)
[2021-04-22 08:50] LABS: BUN (Urea Nitrogen) 10 mg/dL (9.8-20.1); Calc. Creatinine Clearance 69 mL/min (70-130); Glucose 105 mg/dL (83-110)
[2021-04-22 08:58] LABS: Anion Gap 15 mmol/L (10-20); Carbon Dioxide 35 mmol/L (23-31); Chloride 93 mmol/L (98-107); Potassium 4.2 mmol/L (3.5-5.1); Sodium 139 mmol/L (136-145)
[2021-04-22] MEDS: Gabapentin 300 MG CAP PO SCH ×3 (09:37→20:28)
[2021-04-22] MEDS: Calcium Carbonate 600 MG + Vit D TAB PO SCH (09:37)
[2021-04-22] MEDS: Enoxaparin Sodium 40 MG/0.4 ML SYRINGE SC SCH (09:37)
[2021-04-22] MEDS: fentaNYL 50 mcg/hour Patch TD SCH (14:58)
[2021-04-22] MEDS: diphenhydrAMINE 50 MG CAP PO PRN (20:28)
[2021-04-22] MEDS: Atorvastatin Calcium 20 MG TAB PO SCH (20:30)
[2021-04-22] MEDS: Ondansetron PF 4 MG/2 ML Vial IVP PRN (20:47)
[2021-04-22] MEDS ORDERED: Gabapentin 300 MG CAP PO SCH (21:30)
[2021-04-23] MEDS: cefTRIAXone\\ROCEPHIN 1 GM in Sodium Chloride 0.9% 100 ML IVPB SCH (00:49)
[2021-04-23] MEDS: HYDROcodone/Acetaminophen 10/325 mg Tablet PO PRN ×4 (04:01→17:07)
[2021-04-23 04:50] LABS: Anion Gap 15 mmol/L (10-20); BUN (Urea Nitrogen) 10 mg/dL (9.8-20.1); Calc. Creatinine Clearance 64 mL/min (70-130); Calcium 9.1 mg/dL (7.8-10.44); Carbon Dioxide 34 mmol/L (23-31); Chloride 92 mmol/L (98-107); Glucose 89 mg/dL (83-110); Potassium 4.6 mmol/L (3.5-5.1); Sodium 136 mmol/L (136-145)
[2021-04-23] MEDS: Enoxaparin Sodium 40 MG/0.4 ML SYRINGE SC SCH (08:25)
[2021-04-23] MEDS: Calcium Carbonate 600 MG + Vit D TAB PO SCH (08:25)
[2021-04-23] MEDS: Gabapentin 300 MG CAP PO SCH ×3 (08:25→20:39)
[2021-04-23] MEDS: Lidocaine 5% Patch TD SCH (08:26)
[2021-04-23 09:16] LABS: Anisocytosis SLIGHT = 6-15 cells (100X) (0-5/hpf); Band 7 % (5-11); Eosinophils 9 % (0-10); Hemoglobin 12.1 g/dL (12.0-16.0); Lymphocytes 19 % (21-51); MDiff Complete? YES; Mean Corpuscular HGB CONC 31.4 g/dL (32.0-36.0); Mean Corpuscular Hemoglobin 31.4 pg (27.0-31.0); Mean Platelet Volume 6.8 fL (7.4-10.4); Monocytes 4 % (0-10); Neutrophil 61 % (42-75); Platelet Count 324 thou/uL (130-400); RBC Distribution Width 16.5 % (11.5-14.5); Red Blood Cell (RBC) Count 3.84 mill/uL (4.20-5.40); White Blood Cell (WBC) Count 7.6 thou/uL (4.8-10.8)
[2021-04-23] MEDS: Calcium Carbonate 500 MG ChewTAB PO PRN (09:18)
[2021-04-23] MEDS: Atorvastatin Calcium 20 MG TAB PO SCH (20:40)
[2021-04-23] MEDS: diphenhydrAMINE 50 MG CAP PO PRN (20:43)
[2021-04-23] MEDS: Transdermal Patch Removal TOP SCH (20:44)
[2021-04-24] MEDS: cefTRIAXone\\ROCEPHIN 1 GM in Sodium Chloride 0.9% 100 ML IVPB SCH (00:35)
[2021-04-24] MEDS: HYDROcodone/Acetaminophen 10/325 mg Tablet PO PRN ×3 (02:30→14:34)
[2021-04-24] MEDS ORDERED: Talc Infusion/Pleuradesis 4 GM BOT I-PLEURAL SCH (06:00)
[2021-04-24 07:11] LABS: #Basophils 0.1 thou/uL (0.0-0.2); #Eosinphils 0.7 thou/uL (0.0-0.7); #Lymphocytes 1.5 thou/uL (1.20-3.40); #Neutrophils 3.6 thou/uL (1.40-6.50); %Basophils 0.9 % (0.0-1.0); %Eosinophils 9.8 % (0.0-10.0); %Lymphocytes 21.6 % (21.0-51.0); %Monocytes 14.3 % (0.0-10.0); %Neutrophils 53.4 % (42.0-75.0); Mean Corpuscular Hemoglobin 31.3 pg (27.0-31.0); Mean Platelet Volume 6.6 fL (7.4-10.4); Platelet Count 351 thou/uL (130-400); RBC Distribution Width 16.5 % (11.5-14.5); Red Blood Cell (RBC) Count 3.53 mill/uL (4.20-5.40); White Blood Cell (WBC) Count 6.7 thou/uL (4.8-10.8)
[2021-04-24 07:30] LABS: BUN (Urea Nitrogen) 10 mg/dL (9.8-20.1); Calc. Creatinine Clearance 60 mL/min (70-130); Calcium 8.8 mg/dL (7.8-10.44); Glucose 92 mg/dL (83-110)
[2021-04-24 07:39] LABS: Anion Gap 12 mmol/L (10-20); Carbon Dioxide 38 mmol/L (23-31); Chloride 93 mmol/L (98-107); Potassium 4.4 mmol/L (3.5-5.1); Sodium 139 mmol/L (136-145)
[2021-04-24] MEDS: Calcium Carbonate 600 MG + Vit D TAB PO SCH (09:24)
[2021-04-24] MEDS: HYDROcodone/Acetaminophen 5/325 mg Tablet PO PRN ×2 (09:24→18:22)
[2021-04-24] MEDS: Gabapentin 300 MG CAP PO SCH ×3 (09:24→20:26)
[2021-04-24] MEDS: Enoxaparin Sodium 40 MG/0.4 ML SYRINGE SC SCH (09:25)
[2021-04-24] MEDS: Lidocaine 5% Patch TD SCH (09:26)
[2021-04-24] MEDS: Atorvastatin Calcium 20 MG TAB PO SCH (20:26)
[2021-04-24] MEDS: Docusate 100 MG CAP PO SCH (20:26)
[2021-04-24] MEDS: Transdermal Patch Removal TOP SCH (20:27)
[2021-04-24] MEDS: diphenhydrAMINE 50 MG CAP PO PRN (20:30)
[2021-04-25] MEDS: cefTRIAXone\\ROCEPHIN 1 GM in Sodium Chloride 0.9% 100 ML IVPB SCH (00:19)
[2021-04-25] MEDS ORDERED: Talc Infusion/Pleuradesis 4 GM BOT I-PLEURAL SCH (06:00)
[2021-04-25] MEDS: HYDROcodone/Acetaminophen 10/325 mg Tablet PO PRN (07:19)
[2021-04-25 08:14] LABS: SARS-CoV-2 PCR by NAA Not Detected (NotDetected)
[2021-04-25] MEDS: Docusate 100 MG CAP PO SCH ×2 (09:27→20:19)
[2021-04-25] MEDS: Lidocaine 5% Patch TD SCH (09:27)
[2021-04-25] MEDS: Enoxaparin Sodium 40 MG/0.4 ML SYRINGE SC SCH (09:27)
[2021-04-25] MEDS: Calcium Carbonate 600 MG + Vit D TAB PO SCH (09:27)
[2021-04-25] MEDS: Gabapentin 300 MG CAP PO SCH ×3 (09:27→20:20)
[2021-04-25] MEDS: Senokot S 8.6-50 MG TAB PO SCH ×2 (09:36→20:19)
[2021-04-25] MEDS: Polyethylene Glycol 3350 17 GM Packet PO SCH (09:36)
[2021-04-25] MEDS: HYDROcodone/Acetaminophen 5/325 mg Tablet PO PRN ×2 (12:51→20:21)
[2021-04-25] MEDS: fentaNYL 50 mcg/hour Patch TD SCH (12:52)
[2021-04-25] MEDS: Atorvastatin Calcium 20 MG TAB PO SCH (20:19)
[2021-04-25] MEDS: diphenhydrAMINE 50 MG CAP PO PRN (20:22)
[2021-04-25] MEDS: Transdermal Patch Removal TOP SCH (20:24)
[2021-04-25] MEDS: Calcium Carbonate 500 MG ChewTAB PO PRN (23:02)
[2021-04-26] MEDS: HYDROcodone/Acetaminophen 10/325 mg Tablet PO PRN ×5 (00:26→19:51)
[2021-04-26] MEDS: cefTRIAXone\\ROCEPHIN 1 GM in Sodium Chloride 0.9% 100 ML IVPB SCH ×2 (00:27→23:38)
[2021-04-26] MEDS ORDERED: Talc Infusion/Pleuradesis 4 GM BOT I-PLEURAL SCH (06:00)
[2021-04-26] MEDS: Polyethylene Glycol 3350 17 GM Packet PO SCH (09:01)
[2021-04-26] MEDS: Lidocaine 5% Patch TD SCH (09:01)
[2021-04-26] MEDS: Enoxaparin Sodium 40 MG/0.4 ML SYRINGE SC SCH (09:01)
[2021-04-26] MEDS: Calcium Carbonate 600 MG + Vit D TAB PO SCH (09:02)
[2021-04-26] MEDS: Gabapentin 300 MG CAP PO SCH ×3 (09:02→19:53)
[2021-04-26] MEDS: Senokot S 8.6-50 MG TAB PO SCH ×2 (09:02→19:54)
[2021-04-26] MEDS: Docusate 100 MG CAP PO SCH ×2 (09:02→19:54)
[2021-04-26] MEDS: Calcium Carbonate 500 MG ChewTAB PO PRN ×2 (14:18→19:51)
[2021-04-26] MEDS: diphenhydrAMINE 50 MG CAP PO PRN (19:54)
[2021-04-26] MEDS: Atorvastatin Calcium 20 MG TAB PO SCH (19:54)
[2021-04-26] MEDS: Transdermal Patch Removal TOP SCH (20:03)
[2021-04-27] MEDS: HYDROcodone/Acetaminophen 10/325 mg Tablet PO PRN ×3 (05:45→19:59)
[2021-04-27] MEDS: Gabapentin 300 MG CAP PO SCH ×3 (08:23→20:07)
[2021-04-27] MEDS: Calcium Carbonate 600 MG + Vit D TAB PO SCH (08:23)
[2021-04-27] MEDS: Senokot S 8.6-50 MG TAB PO SCH ×2 (08:23→20:08)
[2021-04-27] MEDS: Polyethylene Glycol 3350 17 GM Packet PO SCH (08:23)
[2021-04-27] MEDS: Docusate 100 MG CAP PO SCH ×2 (08:23→20:08)
[2021-04-27] MEDS: Lidocaine 5% Patch TD SCH (08:24)
[2021-04-27] MEDS: Enoxaparin Sodium 40 MG/0.4 ML SYRINGE SC SCH (08:24)
[2021-04-27] MEDS: HYDROcodone/Acetaminophen 5/325 mg Tablet PO PRN (09:45)
[2021-04-27 10:50] LABS: BUN (Urea Nitrogen) 10 mg/dL (9.8-20.1); Calc. Creatinine Clearance 63 mL/min (70-130); Calcium 8.7 mg/dL (7.8-10.44); Glucose 96 mg/dL (83-110)
[2021-04-27 11:03] LABS: Hemoglobin 10.5 g/dL (12.0-16.0); Mean Corpuscular HGB CONC 31.8 g/dL (32.0-36.0); Mean Platelet Volume 7.2 fL (7.4-10.4); Platelet Count 351 thou/uL (130-400); RBC Distribution Width 16.2 % (11.5-14.5); Red Blood Cell (RBC) Count 3.27 mill/uL (4.20-5.40); White Blood Cell (WBC) Count 9.7 thou/uL (4.8-10.8)
[2021-04-27 11:09] LABS: Chloride 91 mmol/L (98-107); Sodium 135 mmol/L (136-145)
[2021-04-27 11:12] LABS: Anion Gap 10 mmol/L (10-20); Carbon Dioxide 38 mmol/L (23-31)
[2021-04-27 11:22] LABS: Band 6 % (5-11); Eosinophils 2 % (0-10); Lymphocytes 11 % (21-51); MDiff Complete? YES; Monocytes 21 % (0-10); Neutrophil 59 % (42-75); Platelet Morphology Comment Appears Adequate; Polychromasia SLIGHT = 2-3 cells (100X) (0-2/hpf)
[2021-04-27] MEDS: Atorvastatin Calcium 20 MG TAB PO SCH (20:06)
[2021-04-27] MEDS: diphenhydrAMINE 50 MG CAP PO PRN (20:08)
[2021-04-27] MEDS: Transdermal Patch Removal TOP SCH (20:11)
[2021-04-28] MEDS: HYDROcodone/Acetaminophen 10/325 mg Tablet PO PRN ×3 (01:04→11:20)
[2021-04-28] MEDS: Ondansetron PF 4 MG/2 ML Vial IVP PRN (01:08)
[2021-04-28 04:20] LABS: BUN (Urea Nitrogen) 8 mg/dL (9.8-20.1); Calc. Creatinine Clearance 63 mL/min (70-130); Calcium 8.4 mg/dL (7.8-10.44); Glucose 79 mg/dL (83-110)
[2021-04-28 04:30] LABS: Anion Gap 10 mmol/L (10-20); Carbon Dioxide 39 mmol/L (23-31); Chloride 93 mmol/L (98-107); Potassium 4.2 mmol/L (3.5-5.1); Sodium 138 mmol/L (136-145)
[2021-04-28 04:38] LABS: Band 2 % (5-11); Eosinophils 2 % (0-10); Hemoglobin 10.3 g/dL (12.0-16.0); Hypochromia SLIGHT = 6-15 cells (100X) (0-5/hpf); Lymphocytes 32 % (21-51); MDiff Complete? YES; Macrocytosis SLIGHT = 6-15 cells (100X) (0-5/hpf); Mean Corpuscular HGB CONC 31.3 g/dL (32.0-36.0); Mean Corpuscular Hemoglobin 31.3 pg (27.0-31.0); Mean Platelet Volume 7.3 fL (7.4-10.4); Monocytes 12 % (0-10); Neutrophil 52 % (42-75); Platelet Count 370 thou/uL (130-400); Platelet Morphology Comment Appears Adequate; RBC Distribution Width 15.9 % (11.5-14.5); Red Blood Cell (RBC) Count 3.31 mill/uL (4.20-5.40)
[2021-04-28] MEDS: Calcium Carbonate 600 MG + Vit D TAB PO SCH (07:57)
[2021-04-28] MEDS: Lidocaine 5% Patch TD SCH (07:57)
[2021-04-28] MEDS: Gabapentin 300 MG CAP PO SCH ×3 (07:57→22:14)
[2021-04-28] MEDS: Enoxaparin Sodium 40 MG/0.4 ML SYRINGE SC SCH (07:58)
[2021-04-28] MEDS: Docusate 100 MG CAP PO SCH ×2 (09:38→22:15)
[2021-04-28] MEDS: Senokot S 8.6-50 MG TAB PO SCH ×2 (09:38→22:15)
[2021-04-28] MEDS: Polyethylene Glycol 3350 17 GM Packet PO SCH (09:38)
[2021-04-28] MEDS: fentaNYL 50 mcg/hour Patch TD SCH (12:50)
[2021-04-28] MEDS ORDERED: Diclofenac 1% 100 GM GEL TP SCH (18:00)
[2021-04-28 19:25] LABS: #Eosinphils 0.1 thou/uL (0.0-0.7); #Lymphocytes 0.8 thou/uL (1.20-3.40); #Neutrophils 7.4 thou/uL (1.40-6.50); %Basophils 0.4 % (0.0-1.0); %Eosinophils 0.8 % (0.0-10.0); %Lymphocytes 8.3 % (21.0-51.0); %Monocytes 10.4 % (0.0-10.0); %Neutrophils 80.2 % (42.0-75.0); Hemoglobin 11.6 g/dL (12.0-16.0); Mean Corpuscular HGB CONC 32.8 g/dL (32.0-36.0); Mean Corpuscular Hemoglobin 32.9 pg (27.0-31.0); Mean Platelet Volume 7.2 fL (7.4-10.4); Platelet Count 432 thou/uL (130-400); RBC Distribution Width 15.8 % (11.5-14.5); Red Blood Cell (RBC) Count 3.52 mill/uL (4.20-5.40); White Blood Cell (WBC) Count 9.3 thou/uL (4.8-10.8)
[2021-04-28 19:44] LABS: ALT (SGPT) 10 U/L (8-55); AST (SGOT) 23 U/L (5-34); Albumin 2.6 g/dL (3.4-4.8); Alkaline Phosphatase 141 U/L (40-110); Anion Gap 15 mmol/L (10-20); BUN (Urea Nitrogen) 13 mg/dL (9.8-20.1); Bilirubin, Total 0.2 mg/dL (0.2-1.2); Calc. Creatinine Clearance 55 mL/min (70-130); Calcium 9.4 mg/dL (7.8-10.44); Carbon Dioxide 35 mmol/L (23-31); Chloride 92 mmol/L (98-107); Globulin 2.9 g/dL (2.4-3.5); Glucose 104 mg/dL (83-110); Potassium 4.9 mmol/L (3.5-5.1); Protein, Total 5.5 g/dL (5.8-8.1); Sodium 137 mmol/L (136-145)
[2021-04-28 20:00] LABS: Troponin I 0.521 ng/mL (< 0.028)
[2021-04-28] MEDS: Atorvastatin Calcium 20 MG TAB PO SCH (22:14)
[2021-04-28] MEDS: Cefepime 1 GM in Sodium Chloride 0.9% 100 ML IVPB SCH (22:15)
[2021-04-28] MEDS: Transdermal Patch Removal TOP SCH (22:15)
[2021-04-28] MEDS: Diclofenac 1% 100 GM GEL TP SCH (22:19)
[2021-04-28 23:56] LABS: Troponin I 0.789 ng/mL (< 0.028)
[2021-04-29] MEDS: Docusate 100 MG CAP PO SCH ×2 (09:09→21:27)
[2021-04-29] MEDS: Cefepime 1 GM in Sodium Chloride 0.9% 100 ML IVPB SCH ×2 (09:09→20:43)
[2021-04-29] MEDS: Calcium Carbonate 600 MG + Vit D TAB PO SCH (09:09)
[2021-04-29] MEDS: Enoxaparin Sodium 40 MG/0.4 ML SYRINGE SC SCH (09:10)
[2021-04-29] MEDS: Lidocaine 5% Patch TD SCH (09:10)
[2021-04-29] MEDS: Gabapentin 300 MG CAP PO SCH ×3 (09:10→20:41)
[2021-04-29] MEDS: Polyethylene Glycol 3350 17 GM Packet PO SCH (09:10)
[2021-04-29] MEDS: Senokot S 8.6-50 MG TAB PO SCH ×2 (09:11→21:27)
[2021-04-29] MEDS: Diclofenac 1% 100 GM GEL TP SCH ×4 (09:22→20:42)
[2021-04-29] MEDS: oxyCODONE/Acetaminophen 5 mg/325 mg Tablet PO PRN ×3 (09:41→23:23)
[2021-04-29] MEDS ORDERED: Iopamidol-370 76% 500 ML 1 ML ONE (10:31)
[2021-04-29] MEDS ORDERED: Aspirin 81 mg Enteric Coated Tablet PO SCH (11:45)
[2021-04-29] MEDS: Atorvastatin Calcium 20 MG TAB PO SCH (20:42)
[2021-04-29] MEDS: Transdermal Patch Removal TOP SCH (21:26)
[2021-04-29] MEDS: diphenhydrAMINE 50 MG CAP PO PRN (21:26)
[2021-04-30] MEDS: oxyCODONE/Acetaminophen 5 mg/325 mg Tablet PO PRN ×4 (06:39→23:10)
[2021-04-30] MEDS: Cefepime 1 GM in Sodium Chloride 0.9% 100 ML IVPB SCH ×2 (08:50→20:40)
[2021-04-30] MEDS: Aspirin 81 mg Enteric Coated Tablet PO SCH (08:50)
[2021-04-30] MEDS: Calcium Carbonate 600 MG + Vit D TAB PO SCH (08:50)
[2021-04-30] MEDS: Diclofenac 1% 100 GM GEL TP SCH ×4 (08:51→20:40)
[2021-04-30] MEDS: Enoxaparin Sodium 40 MG/0.4 ML SYRINGE SC SCH (08:52)
[2021-04-30] MEDS: Docusate 100 MG CAP PO SCH ×2 (08:52→20:40)
[2021-04-30] MEDS: Lidocaine 5% Patch TD SCH (08:53)
[2021-04-30] MEDS: Gabapentin 300 MG CAP PO SCH ×3 (08:53→20:39)
[2021-04-30] MEDS: Polyethylene Glycol 3350 17 GM Packet PO SCH (08:53)
[2021-04-30] MEDS: Senokot S 8.6-50 MG TAB PO SCH ×2 (08:54→20:40)
[2021-04-30] MEDS: Atorvastatin Calcium 20 MG TAB PO SCH (20:40)
[2021-04-30] MEDS: Transdermal Patch Removal TOP SCH (20:50)
[2021-05-01] MEDS: oxyCODONE/Acetaminophen 5 mg/325 mg Tablet PO PRN ×4 (04:41→20:40)
[2021-05-01 06:43] LABS: #Basophils 0.1 thou/uL (0.0-0.2); #Eosinphils 0.7 thou/uL (0.0-0.7); #Lymphocytes 0.7 thou/uL (1.20-3.40); #Monocytes 0.8 thou/uL (0.11-0.59); #Neutrophils 3.2 thou/uL (1.40-6.50); %Basophils 0.9 % (0.0-1.0); %Eosinophils 12.7 % (0.0-10.0); %Lymphocytes 13.2 % (21.0-51.0); %Monocytes 14.3 % (0.0-10.0); %Neutrophils 58.8 % (42.0-75.0); Mean Corpuscular HGB CONC 31.7 g/dL (32.0-36.0); Mean Corpuscular Hemoglobin 31.5 pg (27.0-31.0); Mean Corpuscular Volume 99.3 fL (78.0-98.0); Mean Platelet Volume 6.8 fL (7.4-10.4); Platelet Count 436 thou/uL (130-400); RBC Distribution Width 15.8 % (11.5-14.5); Red Blood Cell (RBC) Count 3.19 mill/uL (4.20-5.40); White Blood Cell (WBC) Count 5.4 thou/uL (4.8-10.8)
[2021-05-01 07:02] LABS: Anion Gap 9 mmol/L (10-20); BUN (Urea Nitrogen) 7 mg/dL (9.8-20.1); Calc. Creatinine Clearance 74 mL/min (70-130); Carbon Dioxide 37 mmol/L (23-31); Chloride 97 mmol/L (98-107); Sodium 139 mmol/L (136-145)
[2021-05-01 07:03] LABS: Calcium 8.2 mg/dL (7.8-10.44); Glucose 81 mg/dL (83-110)
[2021-05-01 07:05] LABS: Troponin I 0.198 ng/mL (< 0.028)
[2021-05-01] MEDS: Docusate 100 MG CAP PO SCH ×2 (09:45→20:36)
[2021-05-01] MEDS: Calcium Carbonate 600 MG + Vit D TAB PO SCH (09:45)
[2021-05-01] MEDS: Aspirin 81 mg Enteric Coated Tablet PO SCH (09:45)
[2021-05-01] MEDS: Gabapentin 300 MG CAP PO SCH ×3 (09:46→20:36)
[2021-05-01] MEDS: Enoxaparin Sodium 40 MG/0.4 ML SYRINGE SC SCH (09:46)
[2021-05-01] MEDS: Senokot S 8.6-50 MG TAB PO SCH ×2 (09:46→20:36)
[2021-05-01] MEDS: Lidocaine 5% Patch TD SCH (09:47)
[2021-05-01] MEDS: Cefepime 1 GM in Sodium Chloride 0.9% 100 ML IVPB SCH ×2 (09:48→20:35)
[2021-05-01] MEDS: Diclofenac 1% 100 GM GEL TP SCH ×4 (09:48→20:37)
[2021-05-01] MEDS: Polyethylene Glycol 3350 17 GM Packet PO SCH (09:48)
[2021-05-01] MEDS: fentaNYL 50 mcg/hour Patch TD SCH (13:10)
[2021-05-01] MEDS: Atorvastatin Calcium 20 MG TAB PO SCH (20:36)
[2021-05-01] MEDS: Transdermal Patch Removal TOP SCH (20:44)
[2021-05-01] MEDS: diphenhydrAMINE 50 MG CAP PO PRN (21:54)
[2021-05-02] MEDS: oxyCODONE/Acetaminophen 5 mg/325 mg Tablet PO PRN ×5 (00:50→21:07)
[2021-05-02] MEDS: Senokot S 8.6-50 MG TAB PO SCH ×2 (07:46→21:06)
[2021-05-02] MEDS: Aspirin 81 mg Enteric Coated Tablet PO SCH (07:46)
[2021-05-02] MEDS: Gabapentin 300 MG CAP PO SCH ×3 (07:46→21:06)
[2021-05-02] MEDS: Docusate 100 MG CAP PO SCH ×2 (07:46→21:06)
[2021-05-02] MEDS: Calcium Carbonate 600 MG + Vit D TAB PO SCH (07:47)
[2021-05-02] MEDS: Enoxaparin Sodium 40 MG/0.4 ML SYRINGE SC SCH (07:47)
[2021-05-02] MEDS: Lidocaine 5% Patch TD SCH (07:48)
[2021-05-02] MEDS: Cefepime 1 GM in Sodium Chloride 0.9% 100 ML IVPB SCH ×2 (08:18→21:07)
[2021-05-02] MEDS: Diclofenac 1% 100 GM GEL TP SCH ×4 (08:18→21:07)
[2021-05-02] MEDS: Polyethylene Glycol 3350 17 GM Packet PO SCH (09:20)
[2021-05-02] MEDS: Ondansetron PF 4 MG/2 ML Vial IVP PRN (11:25)
[2021-05-02 18:30] LABS: SARS-CoV-2 PCR by NAA Not Detected (NotDetected)
[2021-05-02] MEDS: Atorvastatin Calcium 20 MG TAB PO SCH (21:06)
[2021-05-02] MEDS: Transdermal Patch Removal TOP SCH (21:10)
[2021-05-02] MEDS: diphenhydrAMINE 50 MG CAP PO PRN (22:36)
[2021-05-03] MEDS: Lidocaine 5% Patch TD SCH (07:47)
[2021-05-03] MEDS: oxyCODONE/Acetaminophen 5 mg/325 mg Tablet PO PRN ×3 (07:48→22:01)
[2021-05-03] MEDS: Aspirin 81 mg Enteric Coated Tablet PO SCH (07:48)
[2021-05-03] MEDS: Docusate 100 MG CAP PO SCH ×2 (07:48→21:59)
[2021-05-03] MEDS: Senokot S 8.6-50 MG TAB PO SCH ×2 (07:48→21:59)
[2021-05-03] MEDS: Gabapentin 300 MG CAP PO SCH ×3 (07:48→21:59)
[2021-05-03] MEDS: Calcium Carbonate 600 MG + Vit D TAB PO SCH (07:48)
[2021-05-03] MEDS: Diclofenac 1% 100 GM GEL TP SCH ×4 (07:49→22:00)
[2021-05-03] MEDS: Cefepime 1 GM in Sodium Chloride 0.9% 100 ML IVPB SCH ×2 (09:49→22:00)
[2021-05-03] MEDS: Enoxaparin Sodium 40 MG/0.4 ML SYRINGE SC SCH (09:54)
[2021-05-03] MEDS: Polyethylene Glycol 3350 17 GM Packet PO SCH (09:54)
[2021-05-03] MEDS: diphenhydrAMINE 50 MG CAP PO PRN (21:59)
[2021-05-03] MEDS: Atorvastatin Calcium 20 MG TAB PO SCH (21:59)
[2021-05-03] MEDS: Transdermal Patch Removal TOP SCH (22:04)
[2021-05-03] MEDS: Calcium Carbonate 500 MG ChewTAB PO PRN (23:10)
[2021-05-04] MEDS: oxyCODONE/Acetaminophen 5 mg/325 mg Tablet PO PRN ×3 (07:17→21:20)
[2021-05-04] MEDS: Calcium Carbonate 600 MG + Vit D TAB PO SCH (08:03)
[2021-05-04] MEDS: Docusate 100 MG CAP PO SCH ×3 (08:04→22:06)
[2021-05-04] MEDS: Gabapentin 300 MG CAP PO SCH ×4 (08:04→22:06)
[2021-05-04] MEDS: Senokot S 8.6-50 MG TAB PO SCH ×3 (08:04→22:07)
[2021-05-04] MEDS: Aspirin 81 mg Enteric Coated Tablet PO SCH (08:05)
[2021-05-04] MEDS: Enoxaparin Sodium 40 MG/0.4 ML SYRINGE SC SCH ×2 (08:05→10:46)
[2021-05-04] MEDS: Diclofenac 1% 100 GM GEL TP SCH ×5 (08:08→22:06)
[2021-05-04] MEDS: Lidocaine 5% Patch TD SCH (08:10)
[2021-05-04] MEDS: Polyethylene Glycol 3350 17 GM Packet PO SCH (08:10)
[2021-05-04] MEDS: Cefepime 1 GM in Sodium Chloride 0.9% 100 ML IVPB SCH ×3 (08:11→22:06)
[2021-05-04] MEDS: fentaNYL 50 mcg/hour Patch TD SCH (13:27)
[2021-05-04] MEDS ORDERED: Melatonin 3 MG TAB PO PRN (21:11)
[2021-05-04] MEDS ORDERED: Ondansetron PF 4 MG/2 ML Vial IVP PRN (21:15)
[2021-05-04] MEDS ORDERED: hydrALAZINE 20 MG/ML VIAL SLOW IVP PRN (21:15)
[2021-05-04] MEDS: diphenhydrAMINE 50 MG CAP PO PRN (21:32)
[2021-05-04] MEDS: Atorvastatin Calcium 20 MG TAB PO SCH ×2 (21:33→22:06)
[2021-05-04] MEDS: Transdermal Patch Removal TOP SCH ×2 (21:35→22:07)
[2021-05-05] MEDS: Cefepime 1 GM in Sodium Chloride 0.9% 100 ML IVPB SCH ×2 (08:09→20:50)
[2021-05-05] MEDS: Diclofenac 1% 100 GM GEL TP SCH ×4 (08:10→20:59)
[2021-05-05] MEDS: Lidocaine 5% Patch TD SCH (08:10)
[2021-05-05] MEDS: Gabapentin 300 MG CAP PO SCH ×3 (08:11→20:50)
[2021-05-05] MEDS: Senokot S 8.6-50 MG TAB PO SCH ×2 (08:11→20:50)
[2021-05-05] MEDS: Docusate 100 MG CAP PO SCH ×2 (08:11→20:51)
[2021-05-05] MEDS: Aspirin 81 mg Enteric Coated Tablet PO SCH (08:12)
[2021-05-05] MEDS: Polyethylene Glycol 3350 17 GM Packet PO SCH (08:12)
[2021-05-05] MEDS: Enoxaparin Sodium 40 MG/0.4 ML SYRINGE SC SCH (08:12)
[2021-05-05] MEDS: Calcium Carbonate 600 MG + Vit D TAB PO SCH (08:12)
[2021-05-05] MEDS: oxyCODONE/Acetaminophen 5 mg/325 mg Tablet PO PRN ×4 (09:43→21:02)
[2021-05-05] MEDS: Calcium Carbonate 500 MG ChewTAB PO PRN ×3 (14:00→23:41)
[2021-05-05] MEDS: diphenhydrAMINE 50 MG CAP PO PRN (20:51)
[2021-05-05] MEDS: Transdermal Patch Removal TOP SCH (20:51)
[2021-05-05] MEDS: Atorvastatin Calcium 20 MG TAB PO SCH (20:51)
[2021-05-05] MEDS ORDERED: Atorvastatin Calcium 20 MG TAB PO SCH (21:00)
[2021-05-06] MEDS: oxyCODONE/Acetaminophen 5 mg/325 mg Tablet PO PRN ×5 (02:09→22:49)
[2021-05-06] MEDS: Diclofenac 1% 100 GM GEL TP SCH ×4 (08:44→20:57)
[2021-05-06] MEDS: Cefepime 1 GM in Sodium Chloride 0.9% 100 ML IVPB SCH ×2 (08:44→20:58)
[2021-05-06] MEDS: Senokot S 8.6-50 MG TAB PO SCH ×2 (08:45→20:57)
[2021-05-06] MEDS: Lidocaine 5% Patch TD SCH (08:45)
[2021-05-06] MEDS: Aspirin 81 mg Enteric Coated Tablet PO SCH (08:45)
[2021-05-06] MEDS: Enoxaparin Sodium 40 MG/0.4 ML SYRINGE SC SCH (08:45)
[2021-05-06] MEDS: Calcium Carbonate 600 MG + Vit D TAB PO SCH (08:45)
[2021-05-06] MEDS: Docusate 100 MG CAP PO SCH ×2 (08:46→20:57)
[2021-05-06] MEDS: Gabapentin 300 MG CAP PO SCH ×3 (08:48→20:56)
[2021-05-06] MEDS: Polyethylene Glycol 3350 17 GM Packet PO SCH (10:00)
[2021-05-06] MEDS: Calcium Carbonate 500 MG ChewTAB PO PRN (18:33)
[2021-05-06] MEDS: diphenhydrAMINE 50 MG CAP PO PRN (20:57)
[2021-05-06] MEDS: Atorvastatin Calcium 20 MG TAB PO SCH (20:57)
[2021-05-06] MEDS: Transdermal Patch Removal TOP SCH (20:59)
[2021-05-06] MEDS: Acetaminophen 325 MG TAB PO PRN (21:02)
[2021-05-07 04:14] LABS: #Eosinphils 0.7 thou/uL (0.0-0.7); #Lymphocytes 1.1 thou/uL (1.20-3.40); #Monocytes 0.8 thou/uL (0.11-0.59); #Neutrophils 3.3 thou/uL (1.40-6.50); %Basophils 0.7 % (0.0-1.0); %Eosinophils 12.5 % (0.0-10.0); %Lymphocytes 17.8 % (21.0-51.0); %Monocytes 13.8 % (0.0-10.0); %Neutrophils 55.2 % (42.0-75.0); Hemoglobin 10.1 g/dL (12.0-16.0); Mean Corpuscular HGB CONC 31.3 g/dL (32.0-36.0); Mean Corpuscular Hemoglobin 31.3 pg (27.0-31.0); Mean Platelet Volume 6.9 fL (7.4-10.4); Platelet Count 430 thou/uL (130-400); RBC Distribution Width 16.1 % (11.5-14.5); Red Blood Cell (RBC) Count 3.22 mill/uL (4.20-5.40)
[2021-05-07 04:26] LABS: Anion Gap 13 mmol/L (10-20); BUN (Urea Nitrogen) 8 mg/dL (9.8-20.1); Calc. Creatinine Clearance 80 mL/min (70-130); Calcium 8.2 mg/dL (7.8-10.44); Carbon Dioxide 29 mmol/L (23-31); Chloride 101 mmol/L (98-107); Glucose 80 mg/dL (83-110); Magnesium 1.6 mg/dL (1.6-2.6); Sodium 139 mmol/L (136-145)
[2021-05-07] MEDS: oxyCODONE/Acetaminophen 5 mg/325 mg Tablet PO PRN ×4 (06:44→21:05)
[2021-05-07] MEDS: Aspirin 81 mg Enteric Coated Tablet PO SCH (08:16)
[2021-05-07] MEDS: Gabapentin 300 MG CAP PO SCH ×3 (08:16→21:04)
[2021-05-07] MEDS: Cefepime 1 GM in Sodium Chloride 0.9% 100 ML IVPB SCH ×2 (08:16→20:02)
[2021-05-07] MEDS: Docusate 100 MG CAP PO SCH ×2 (08:16→21:04)
[2021-05-07] MEDS: Calcium Carbonate 600 MG + Vit D TAB PO SCH (08:16)
[2021-05-07] MEDS: Lidocaine 5% Patch TD SCH (08:17)
[2021-05-07] MEDS: Diclofenac 1% 100 GM GEL TP SCH ×4 (08:35→20:16)
[2021-05-07] MEDS: Enoxaparin Sodium 40 MG/0.4 ML SYRINGE SC SCH (08:35)
[2021-05-07] MEDS: Polyethylene Glycol 3350 17 GM Packet PO SCH (08:36)
[2021-05-07] MEDS: Senokot S 8.6-50 MG TAB PO SCH ×2 (08:36→21:05)
[2021-05-07] MEDS: Acetaminophen 325 MG TAB PO PRN ×2 (10:08→16:09)
[2021-05-07] MEDS ORDERED: fentaNYL 50 mcg/hour Patch TD SCH (13:00)
[2021-05-07] MEDS: Calcium Carbonate 500 MG ChewTAB PO PRN (20:01)
[2021-05-07] MEDS: Atorvastatin Calcium 20 MG TAB PO SCH (21:05)
[2021-05-07] MEDS: diphenhydrAMINE 50 MG CAP PO PRN (21:05)
[2021-05-07] MEDS: Transdermal Patch Removal TOP SCH (21:07)
[2021-05-08] MEDS: oxyCODONE/Acetaminophen 5 mg/325 mg Tablet PO PRN ×2 (04:53→11:23)
[2021-05-08] MEDS: Acetaminophen 325 MG TAB PO PRN (09:42)
[2021-05-08] MEDS: Cefepime 1 GM in Sodium Chloride 0.9% 100 ML IVPB SCH ×2 (09:42→21:14)
[2021-05-08] MEDS: Docusate 100 MG CAP PO SCH ×2 (09:42→21:20)
[2021-05-08] MEDS: Gabapentin 300 MG CAP PO SCH ×3 (09:42→21:15)
[2021-05-08] MEDS: Calcium Carbonate 600 MG + Vit D TAB PO SCH (09:42)
[2021-05-08] MEDS: Lidocaine 5% Patch TD SCH (09:43)
[2021-05-08] MEDS: Enoxaparin Sodium 40 MG/0.4 ML SYRINGE SC SCH (09:43)
[2021-05-08] MEDS: Aspirin 81 mg Enteric Coated Tablet PO SCH (10:02)
[2021-05-08] MEDS: Diclofenac 1% 100 GM GEL TP SCH ×4 (10:12→21:26)
[2021-05-08] MEDS: Polyethylene Glycol 3350 17 GM Packet PO SCH (10:12)
[2021-05-08] MEDS: Senokot S 8.6-50 MG TAB PO SCH ×2 (10:12→21:20)
[2021-05-08] MEDS: Calcium Carbonate 500 MG ChewTAB PO PRN (19:05)
[2021-05-08] MEDS: diphenhydrAMINE 50 MG CAP PO PRN (21:15)
[2021-05-08] MEDS: Atorvastatin Calcium 20 MG TAB PO SCH (21:16)
[2021-05-08] MEDS: Transdermal Patch Removal TOP SCH (22:17)
[2021-05-09] MEDS: oxyCODONE/Acetaminophen 5 mg/325 mg Tablet PO PRN ×4 (01:48→18:46)
[2021-05-09 07:53] VITALS: BP 125/60; TEMP 98
[2021-05-09] MEDS: Aspirin 81 mg Enteric Coated Tablet PO SCH (08:21)
[2021-05-09] MEDS: Gabapentin 300 MG CAP PO SCH ×2 (08:22→14:04)
[2021-05-09] MEDS: Calcium Carbonate 600 MG + Vit D TAB PO SCH (08:22)
[2021-05-09] MEDS: Docusate 100 MG CAP PO SCH (08:23)
[2021-05-09] MEDS: Enoxaparin Sodium 40 MG/0.4 ML SYRINGE SC SCH (08:23)
[2021-05-09] MEDS: Lidocaine 5% Patch TD SCH (08:23)
[2021-05-09] MEDS: Senokot S 8.6-50 MG TAB PO SCH (08:37)
[2021-05-09] MEDS: Polyethylene Glycol 3350 17 GM Packet PO SCH (08:37)
[2021-05-09] MEDS: Diclofenac 1% 100 GM GEL TP SCH ×3 (08:37→16:30)
[2021-05-09] MEDS: Calcium Carbonate 500 MG ChewTAB PO PRN (18:44)
== END 2021-05-09 19:23 | DRG 180 ==
LOC: ERS 20:24 → ERHOLD 04-17 01:00 → 2NO 04-17 13:25 → OBSVTOIN 04-18 18:15 → ONC 04-21 17:47 → 3SE 04-28 19:26 → ONC 05-01 15:19 → UNDODISIN 05-04 20:03
PROVIDERS: ADMIT Internal Medicine; ATTEND Internal Medicine
PROC: 0W993ZZ Drainage of Right Pleural Cavity, Percutaneous Approach (ICD-10-PCS; principal; 2021-04-17)
PROC: 0W9900Z Drainage of Right Pleural Cavity with Drainage Device, Open Approach (ICD-10-PCS; 2021-04-19)
PROC: 3E0L3GC Introduction of Other Therapeutic Substance into Pleural Cavity, Percutaneous Approach (ICD-10-PCS; 2021-04-24)
PROC: 3E0L3GC Introduction of Other Therapeutic Substance into Pleural Cavity, Percutaneous Approach (ICD-10-PCS; 2021-04-25)
PROC: 3E0L3GC Introduction of Other Therapeutic Substance into Pleural Cavity, Percutaneous Approach (ICD-10-PCS; 2021-04-26)
DX: C34.91 Malignant neoplasm of unspecified part of right bronchus or lung (principal); J96.21 Acute and chronic respiratory failure with hypoxia; I21.4 Non-ST elevation (NSTEMI) myocardial infarction; C77.1 Secondary and unspecified malignant neoplasm of intrathoracic lymph nodes; J91.0 Malignant pleural effusion; E87.1 Hypo-osmolality and hyponatremia; R64 Cachexia; J93.82 Other air leak; N30.00 Acute cystitis without hematuria; M48.54XA Collapsed vertebra, not elsewhere classified, thoracic region, initial encounter for fracture; I10 Essential (primary) hypertension; Z20.822 Contact with and (suspected) exposure to COVID-19; Z66 Do not resuscitate; G89.29 Other chronic pain; B96.20 Unspecified Escherichia coli [E. coli] as the cause of diseases classified elsewhere; J44.9 Chronic obstructive pulmonary disease, unspecified; Z99.81 Dependence on supplemental oxygen; Z88.2 Allergy status to sulfonamides; Z88.5 Allergy status to narcotic agent; Z79.51 Long term (current) use of inhaled steroids; Z79.899 Other long term (current) drug therapy; Z98.890 Other specified postprocedural states; Z87.891 Personal history of nicotine dependence; Z68.20 Body mass index [BMI] 20.0-20.9, adult; K59.03 Drug induced constipation; T40.2X5A Adverse effect of other opioids, initial encounter
CPT/HCPCS: 36415; 36416; 51702; 71045; 71275; 80048; 80053; 81003; 81015; 82553; 83690; 83735; 83930; 83935; 84484; 85025; 85379; 87077; 87086; 87186; 93005; 94640; 96372; 96374; 96375; 96376; G0378; J0171; J0692; J0696; J1650; J2270; J2405; J3010; J3475; J3490; J7050; J7620; Q9967; U0002; U0003; U0005

== ENCOUNTER 2021-06-14 09:36 | Emergency (ER) | payer MEDICARE ==
[2021-06-14 12:28] LABS: #Eosinphils 0.6 thou/uL (0.0-0.7); #Lymphocytes 1.4 thou/uL (1.20-3.40); #Neutrophils 5.2 thou/uL (1.40-6.50); %Basophils 0.3 % (0.0-1.0); %Lymphocytes 16.9 % (21.0-51.0); %Monocytes 12.5 % (0.0-10.0); %Neutrophils 63.3 % (42.0-75.0); Hemoglobin 11.2 g/dL (12.0-16.0); Mean Corpuscular Hemoglobin 30.9 pg (27.0-31.0); Mean Corpuscular Volume 96.8 fL (78.0-98.0); Mean Platelet Volume 7.5 fL (7.4-10.4); Platelet Count 349 thou/uL (130-400); RBC Distribution Width 14.9 % (11.5-14.5); Red Blood Cell (RBC) Count 3.61 mill/uL (4.20-5.40); White Blood Cell (WBC) Count 8.1 thou/uL (4.8-10.8)
[2021-06-14 12:39] LABS: ALT (SGPT) 8 U/L (8-55); AST (SGOT) 12 U/L (5-34); Albumin 3.2 g/dL (3.4-4.8); Alkaline Phosphatase 130 U/L (40-110); Anion Gap 9 mmol/L (10-20); BUN (Urea Nitrogen) 9 mg/dL (9.8-20.1); Bilirubin, Total 0.3 mg/dL (0.2-1.2); Calc. Creatinine Clearance 0 mL/min (70-130); Carbon Dioxide 33 mmol/L (23-31); Chloride 97 mmol/L (98-107); Globulin 3.3 g/dL (2.4-3.5); Glucose 91 mg/dL (83-110); Potassium 4.3 mmol/L (3.5-5.1); Protein, Total 6.5 g/dL (5.8-8.1); Sodium 135 mmol/L (136-145)
== END 2021-06-14 13:40 | disposition home or self-care (01) ==
LOC: ERS 09:36
DX: R20.2 Paresthesia of skin (principal); R20.0 Anesthesia of skin; I10 Essential (primary) hypertension; J44.9 Chronic obstructive pulmonary disease, unspecified; Z87.891 Personal history of nicotine dependence
CPT/HCPCS: 70450; 80053; 85025

== ENCOUNTER 2021-06-15 09:42 | Outpatient (CLI) | payer MEDICARE | END 2021-06-15 09:43 | disposition home or self-care (01) | LOC: PET 09:42 | PROVIDERS: ATTEND Internal Medicine Hematology & Oncology | DX: C34.11 Malignant neoplasm of upper lobe, right bronchus or lung (principal); J90 Pleural effusion, not elsewhere classified; J92.9 Pleural plaque without asbestos; N85.2 Hypertrophy of uterus; R93.89 Abnormal findings on diagnostic imaging of other specified body structures | CPT/HCPCS: 78815; A9552 ==

== ENCOUNTER 2021-06-30 11:58 | Outpatient (CLI) | payer MEDICARE | END 2021-06-30 11:59 | disposition home or self-care (01) | LOC: BICRAD 11:58 | PROVIDERS: ATTEND Nurse Practitioner Family | DX: C34.91 Malignant neoplasm of unspecified part of right bronchus or lung (principal); R20.2 Paresthesia of skin; G89.4 Chronic pain syndrome; R68.84 Jaw pain; R59.0 Localized enlarged lymph nodes; H74.91 Unspecified disorder of right middle ear and mastoid; Z92.3 Personal history of irradiation | CPT/HCPCS: 70150 ==

== ENCOUNTER 2021-07-27 08:37 | Outpatient (CLI) | payer MEDICARE | END 2021-07-27 08:38 | disposition home or self-care (01) | LOC: CT 08:37 | PROVIDERS: ATTEND Student in an Organized Health Care Education/Training Program | DX: R20.2 Paresthesia of skin (principal); H74.8X1 Other specified disorders of right middle ear and mastoid | CPT/HCPCS: 70486 ==

== ENCOUNTER 2021-09-19 12:16 | Outpatient (CLI) | payer MEDICARE ==
[2021-09-19 14:36] LABS: #Basophils 0.1 10x3/uL (0.0-0.2); #Eosinphils 0.2 10x3/uL (0.0-0.5); #Monocytes 0.7 10x3/uL (0.0-1.1); #Neutrophils 3.2 10x3/uL (1.5-8.4); %Basophils 1.2 % (0.0-2.0); %Eosinophils 3.1 % (0.0-6.0); %Lymphocytes 27.1 % (18.0-47.0); %Monocytes 12.1 % (0.0-10.0); %Neutrophils 56.3 % (40.0-75.0); Hemoglobin 11.1 g/dL (12.0-15.5); Mean Corpuscular HGB CONC 30.6 g/dL (32.0-36.0); Mean Corpuscular Volume 94.8 fl (81.6-98.3); Mean Platelet Volume 10.2 fl (7.4-10.4); Platelet Count 299 10x3/uL (150-450); RBC Distribution Width 15.2 % (11.5-14.5); Red Blood Cell (RBC) Count 3.83 10x6/uL (3.90-5.03); White Blood Cell (WBC) Count 5.7 10x3/uL (3.5-10.5)
[2021-09-19 15:02] LABS: Anion Gap 14 mmol/L (10-20); BUN (Urea Nitrogen) 11 mg/dL (9.8-20.1); Calc. Creatinine Clearance 0 mL/min (70-130); Calcium 9.1 mg/dL (7.8-10.44); Carbon Dioxide 30 mmol/L (23-31); Chloride 97 mmol/L (98-107); Glucose 81 mg/dL (83-110); Potassium 4.5 mmol/L (3.5-5.1); Sodium 136 mmol/L (136-145)
[2021-09-19 23:45] LABS: SARS-CoV-2 PCR by NAA Not Detected (NotDetected)
== END 2021-09-19 12:17 | disposition home or self-care (01) ==
LOC: LABBT 12:16
PROVIDERS: ATTEND Surgery
DX: Z01.818 Encounter for other preprocedural examination (principal); C34.90 Malignant neoplasm of unspecified part of unspecified bronchus or lung; J98.4 Other disorders of lung; Z20.822 Contact with and (suspected) exposure to COVID-19
CPT/HCPCS: 71046; 80048; 85025; 93005; U0003; U0005; 93010

== ENCOUNTER 2021-09-22 08:12 | Day surgery (SDC) | payer MEDICARE ==
[2021-09-20 09:57] VITALS: BMI 18.0
[~2021-09-22 08:12] MED LIST changes: +Bupivacaine 0.25% HCL 30 ML VIAL ONE; +Heparin 5,000 UNITS/ML VIAL ONE; -Iopamidol-370 76% 500 ML 1 ML ONE; +Lidocaine 2% PF 5 ML VIAL ONE; +Xylocaine 1% w/ Epi 1:100K 10 ML VIAL ONE
[2021-09-22] MEDS ORDERED: Acetaminophen 500 MG TAB ONE (09:10)
[2021-09-22] MEDS ORDERED: Midazolam HCl 2 mg/2 ml Vial ONE (10:10)
[2021-09-22] MEDS ORDERED: Propofol 500 MG/50 ML VIAL ONE (10:10)
[2021-09-22] MEDS ORDERED: Fentanyl 250 MCG/5 ML VIAL ONE (10:10)
[2021-09-22] MEDS ORDERED: ceFAZolin (BATCH) 2 GM/100 ML BAG ONE (10:18)
[2021-09-22] MEDS ORDERED: Bupivacaine 0.25% HCL 30 ML VIAL ONE (10:51)
[2021-09-22] MEDS ORDERED: Xylocaine 1% w/ Epi 1:100K 10 ML VIAL ONE (10:51)
== END 2021-09-22 13:24 | disposition home or self-care (01) ==
LOC: SDC 08:12
PROVIDERS: ATTEND Surgery
PROC: 0JH60WZ Insertion of Totally Implantable Vascular Access Device into Chest Subcutaneous Tissue and Fascia, Open Approach (ICD-10-PCS; principal; 2021-09-22)
PROC: 02HV33Z Insertion of Infusion Device into Superior Vena Cava, Percutaneous Approach (ICD-10-PCS; 2021-09-22)
DX: C34.31 Malignant neoplasm of lower lobe, right bronchus or lung (principal); C79.51 Secondary malignant neoplasm of bone; J91.0 Malignant pleural effusion; J44.9 Chronic obstructive pulmonary disease, unspecified; I10 Essential (primary) hypertension; E78.00 Pure hypercholesterolemia, unspecified; G89.29 Other chronic pain; M54.9 Dorsalgia, unspecified; K21.9 Gastro-esophageal reflux disease without esophagitis; Z87.891 Personal history of nicotine dependence; Z79.82 Long term (current) use of aspirin; Z79.899 Other long term (current) drug therapy; Z88.2 Allergy status to sulfonamides; Z88.6 Allergy status to analgesic agent; Z99.81 Dependence on supplemental oxygen
CPT/HCPCS: 36561; 71045; C1788; J0690; J1642; J1644; J2001; J2250; J2704; J3010; S0020

== ENCOUNTER 2021-10-09 12:16 | Inpatient (IN) | payer OTHER, MEDICARE ==
[2021-10-09 13:44] LABS: #Basophils 0.1 thou/uL (0.0-0.2); #Eosinphils 0.2 thou/uL (0.0-0.7); #Lymphocytes 1.4 thou/uL (1.20-3.40); #Monocytes 0.6 thou/uL (0.11-0.59); #Neutrophils 4.2 thou/uL (1.40-6.50); %Basophils 0.8 % (0.0-1.0); %Eosinophils 3.1 % (0.0-10.0); %Lymphocytes 21.6 % (21.0-51.0); %Monocytes 9.6 % (0.0-10.0); Hemoglobin 11.5 g/dL (12.0-16.0); Mean Corpuscular HGB CONC 31.9 g/dL (32.0-36.0); Mean Corpuscular Hemoglobin 31.1 pg (27.0-31.0); Mean Corpuscular Volume 97.3 fL (78.0-98.0); Mean Platelet Volume 7.2 fL (7.4-10.4); Platelet Count 241 thou/uL (130-400); RBC Distribution Width 13.3 % (11.5-14.5); Red Blood Cell (RBC) Count 3.71 mill/uL (4.20-5.40); White Blood Cell (WBC) Count 6.5 thou/uL (4.8-10.8)
[2021-10-09 14:07] LABS: ALT (SGPT) 23 U/L (8-55); AST (SGOT) 30 U/L (5-34); Alkaline Phosphatase 91 U/L (40-110); Anion Gap 12 mmol/L (10-20); BUN (Urea Nitrogen) 11 mg/dL (9.8-20.1); Bilirubin, Total 0.5 mg/dL (0.2-1.2); Calc. Creatinine Clearance 0 mL/min (70-130); Calcium 9.2 mg/dL (7.8-10.44); Carbon Dioxide 30 mmol/L (23-31); Chloride 97 mmol/L (98-107); Globulin 2.6 g/dL (2.4-3.5); Glucose 89 mg/dL (83-110); Potassium 4.3 mmol/L (3.5-5.1); Protein, Total 6.6 g/dL (5.8-8.1); Sodium 135 mmol/L (136-145)
[2021-10-09] MEDS ORDERED: Bacitracin 1 PK ONE (14:24)
[2021-10-09] MEDS ORDERED: Morphine 4 MG/ML VIAL ONE (14:47)
[2021-10-09] MEDS ORDERED: Dextrose 5% in Water 1,000 ML IV PRN (16:03)
[2021-10-09] MEDS ORDERED: Dextrose 50% Abboject 50 ML SYRINGE SLOW IVP PRN (16:03)
[2021-10-09] MEDS ORDERED: Ondansetron ODT 4 MG TAB PO PRN (16:03)
[2021-10-09] MEDS ORDERED: Ondansetron PF 4 MG/2 ML Vial IVP PRN (16:03)
[2021-10-09] MEDS ORDERED: Rib Fracture Protocol PO SCH (16:15)
[2021-10-09] MEDS ORDERED: Cyclobenzaprine 10 MG TAB PO PRN ×2 (16:30→16:33)
[2021-10-09] MEDS ORDERED: Ketorolac Tromethamine 30 MG/ML VIAL ONE (16:33)
[2021-10-09] MEDS ORDERED: HYDROcodone/Acetaminophen 10/325 mg Tablet PO PRN ×2 (16:33→16:36)
[2021-10-09 17:25] LABS: Troponin I 0.029 ng/mL (< 0.028)
[2021-10-09] MEDS ORDERED: Acetaminophen 500 MG TAB PO SCH (18:00)
[2021-10-09] MEDS ORDERED: traMADol HCl 50 MG TAB PO SCH (18:00)
[2021-10-09] MEDS: Ketorolac Tromethamine 30 MG/ML VIAL IVP SCH ×2 (18:47→23:39)
[2021-10-09] MEDS: HYDROcodone/Acetaminophen 10/325 mg Tablet PO SCH ×2 (18:49→23:37)
[2021-10-09] MEDS: Acetaminophen 325 MG TAB PO SCH ×2 (18:50→23:38)
[2021-10-09 20:44] LABS: Troponin I 0.031 ng/mL (< 0.028)
[2021-10-09] MEDS ORDERED: Gabapentin 300 MG CAP PO SCH (21:00)
[2021-10-09] MEDS ORDERED: Gabapentin 100 MG CAP PO SCH (21:00)
[2021-10-09] MEDS: Famotidine 20 MG TAB PO SCH (21:28)
[2021-10-09 21:56] VITALS: BMI 17.9
[2021-10-09] MEDS ORDERED: Ibuprofen 200 MG TAB PO SCH (22:00)
[2021-10-10 01:36] LABS: #Basophils 0.1 thou/uL (0.0-0.2); #Eosinphils 0.2 thou/uL (0.0-0.7); #Lymphocytes 1.5 thou/uL (1.20-3.40); #Monocytes 0.8 thou/uL (0.11-0.59); #Neutrophils 3.6 thou/uL (1.40-6.50); %Basophils 1.2 % (0.0-1.0); %Lymphocytes 24.3 % (21.0-51.0); %Monocytes 13.1 % (0.0-10.0); %Neutrophils 57.4 % (42.0-75.0); Hemoglobin 12.2 g/dL (12.0-16.0); Mean Corpuscular HGB CONC 33.1 g/dL (32.0-36.0); Mean Corpuscular Hemoglobin 31.7 pg (27.0-31.0); Mean Corpuscular Volume 95.9 fL (78.0-98.0); Mean Platelet Volume 7.4 fL (7.4-10.4); Platelet Count 230 thou/uL (130-400); RBC Distribution Width 13.4 % (11.5-14.5); Red Blood Cell (RBC) Count 3.85 mill/uL (4.20-5.40); White Blood Cell (WBC) Count 6.3 thou/uL (4.8-10.8)
[2021-10-10 01:44] LABS: Troponin I 0.031 ng/mL (< 0.028)
[2021-10-10 01:49] LABS: Anion Gap 13 mmol/L (10-20); BUN (Urea Nitrogen) 9 mg/dL (9.8-20.1); Calc. Creatinine Clearance 50 mL/min (70-130); Calcium 8.8 mg/dL (7.8-10.44); Carbon Dioxide 32 mmol/L (23-31); Chloride 98 mmol/L (98-107); Glucose 91 mg/dL (83-110); Magnesium 1.9 mg/dL (1.6-2.6); Phosphorus 3.9 mg/dL (2.3-4.7); Sodium 139 mmol/L (136-145)
[2021-10-10] MEDS: Acetaminophen 325 MG TAB PO SCH ×4 (05:08→23:32)
[2021-10-10] MEDS: HYDROcodone/Acetaminophen 10/325 mg Tablet PO SCH ×4 (05:08→23:31)
[2021-10-10] MEDS: Ketorolac Tromethamine 30 MG/ML VIAL IVP SCH (05:09)
[2021-10-10] MEDS: Mometasone 200 MCG/Formoterol 5 MCG 120 PUFF INHALER INH SCH ×2 (06:39→19:30)
[2021-10-10 07:20] LABS: Troponin I 0.023 ng/mL (< 0.028)
[2021-10-10] MEDS ORDERED: ALBUTEROL SULFATE 90 MCG IH PRN (07:31)
[2021-10-10] MEDS ORDERED: Albuterol 200 PUFF (6.7GM INHALER) INH PRN (07:37)
[2021-10-10] MEDS ORDERED: FLU VACC QS2021-22(65YR UP)/PF 240 MCG/0.7 ML SYRINGE IM ONE (09:00)
[2021-10-10] MEDS: Atorvastatin Calcium 20 MG TAB PO SCH (11:14)
[2021-10-10] MEDS: Gabapentin 300 MG CAP PO SCH ×3 (11:14→21:54)
[2021-10-10] MEDS: Famotidine 20 MG TAB PO SCH ×2 (11:14→21:54)
[2021-10-10] MEDS: Aspirin 81 mg Enteric Coated Tablet PO SCH (11:14)
[2021-10-10] MEDS: Polyethylene Glycol 3350 17 GM Packet PO SCH (11:15)
[2021-10-10] MEDS: Senokot S 8.6-50 MG TAB PO SCH ×2 (11:15→21:54)
[2021-10-10 12:12] LABS: SARS-CoV-2 PCR by NAA Not Detected (NotDetected)
[2021-10-10] MEDS ORDERED: Dronedarone HCl 400 MG TAB PO SCH (17:15)
[2021-10-10] MEDS ORDERED: Labetalol HCl 100 MG/20 ML VIAL SLOW IVP PRN (17:36)
[2021-10-11] MEDS: HYDROcodone/Acetaminophen 10/325 mg Tablet PO SCH ×3 (05:57→17:38)
[2021-10-11] MEDS: Acetaminophen 325 MG TAB PO SCH ×3 (05:57→17:38)
[2021-10-11] MEDS: Mometasone 200 MCG/Formoterol 5 MCG 120 PUFF INHALER INH SCH (06:46)
[2021-10-11] MEDS: Famotidine 20 MG TAB PO SCH (09:20)
[2021-10-11] MEDS: Atorvastatin Calcium 20 MG TAB PO SCH (09:20)
[2021-10-11] MEDS: Aspirin 81 mg Enteric Coated Tablet PO SCH (09:20)
[2021-10-11] MEDS: Polyethylene Glycol 3350 17 GM Packet PO SCH (09:20)
[2021-10-11] MEDS: Dronedarone HCl 400 MG TAB PO SCH ×2 (09:20→16:10)
[2021-10-11] MEDS: Gabapentin 300 MG CAP PO SCH ×2 (09:20→16:10)
[2021-10-11] MEDS: Senokot S 8.6-50 MG TAB PO SCH (09:21)
[2021-10-11 17:20] VITALS: BP 141/66; TEMP 98.2
== END 2021-10-11 18:42 | disposition home or self-care (01) | DRG 565 ==
LOC: ERS 12:16 → SJJU 16:03 → 2NO 22:37
PROVIDERS: ADMIT Surgery; ATTEND Surgery
DX: S22.20XA Unspecified fracture of sternum, initial encounter for closed fracture (principal); J90 Pleural effusion, not elsewhere classified; R64 Cachexia; I50.32 Chronic diastolic (congestive) heart failure; Z68.1 Body mass index [BMI] 19.9 or less, adult; J96.10 Chronic respiratory failure, unspecified whether with hypoxia or hypercapnia; Z20.822 Contact with and (suspected) exposure to COVID-19; J44.9 Chronic obstructive pulmonary disease, unspecified; G89.29 Other chronic pain; M54.9 Dorsalgia, unspecified; G25.81 Restless legs syndrome; Z60.2 Problems related to living alone; I48.0 Paroxysmal atrial fibrillation; I25.10 Atherosclerotic heart disease of native coronary artery without angina pectoris; I11.0 Hypertensive heart disease with heart failure; I49.3 Ventricular premature depolarization; M81.0 Age-related osteoporosis without current pathological fracture; Z87.891 Personal history of nicotine dependence; V43.52XA Car driver injured in collision with other type car in traffic accident, initial encounter; Y93.89 Activity, other specified; Z85.118 Personal history of other malignant neoplasm of bronchus and lung; Z99.81 Dependence on supplemental oxygen; Z90.89 Acquired absence of other organs; Z88.2 Allergy status to sulfonamides; Z88.8 Allergy status to other drugs, medicaments and biological substances; Z79.899 Other long term (current) drug therapy; I25.2 Old myocardial infarction
CPT/HCPCS: 36415; 71045; 71260; 80048; 80053; 83735; 84100; 84484; 85025; 93005; 93010; 93306; 94640; 96374; 96375; G0390; J1885; J2270; J7620; U0003; U0005

== ENCOUNTER 2021-11-02 10:53 | Observation (INO) | payer MEDICARE ==
[2021-11-02 11:34] LABS: #Basophils 0.1 thou/uL (0.0-0.2); #Eosinphils 0.6 thou/uL (0.0-0.7); #Lymphocytes 0.9 thou/uL (1.20-3.40); #Monocytes 0.6 thou/uL (0.11-0.59); #Neutrophils 4.6 thou/uL (1.40-6.50); %Basophils 1.4 % (0.0-1.0); %Eosinophils 8.9 % (0.0-10.0); %Lymphocytes 12.6 % (21.0-51.0); %Monocytes 9.1 % (0.0-10.0); Hemoglobin 11.2 g/dL (12.0-16.0); Mean Corpuscular HGB CONC 30.9 g/dL (32.0-36.0); Mean Corpuscular Hemoglobin 30.7 pg (27.0-31.0); Mean Corpuscular Volume 99.4 fL (78.0-98.0); Mean Platelet Volume 6.4 fL (7.4-10.4); Platelet Count 297 thou/uL (130-400); RBC Distribution Width 13.3 % (11.5-14.5); Red Blood Cell (RBC) Count 3.64 mill/uL (4.20-5.40); White Blood Cell (WBC) Count 6.8 thou/uL (4.8-10.8)
[2021-11-02 11:48] LABS: ALT (SGPT) 16 U/L (8-55); AST (SGOT) 24 U/L (5-34); Albumin 3.8 g/dL (3.4-4.8); Alkaline Phosphatase 100 U/L (40-110); Anion Gap 9 mmol/L (10-20); BUN (Urea Nitrogen) 6 mg/dL (9.8-20.1); Bilirubin, Total 0.4 mg/dL (0.2-1.2); Calc. Creatinine Clearance 0 mL/min (70-130); Calcium 8.5 mg/dL (7.8-10.44); Carbon Dioxide 33 mmol/L (23-31); Chloride 95 mmol/L (98-107); Glucose 97 mg/dL (83-110); Protein, Total 6.8 g/dL (5.8-8.1); Sodium 133 mmol/L (136-145)
[2021-11-02] MEDS ORDERED: methylPREDNISolone Sod Succ/PF 125 MG/2 ML VIAL ONE (12:25)
[2021-11-02] MEDS ORDERED: HYDROcodone/Acetaminophen 10/325 mg Tablet ONE (13:50)
[2021-11-02] MEDS ORDERED: Ondansetron PF 4 MG/2 ML Vial IVP PRN (13:53)
[2021-11-02] MEDS ORDERED: Guaifenesin DM 100-10/5 ML UDCUP PO PRN (13:53)
[2021-11-02] MEDS ORDERED: PEMBROLIZUMAB 100 MG/4 ML IV SCH (14:45)
[2021-11-02] MEDS ORDERED: Furosemide 20 MG/2 ML VIAL SLOW IVP SCH (14:45)
[2021-11-02] MEDS ORDERED: methylPREDNISolone Sod Succ/PF 125 MG/2 ML VIAL IVP SCH (16:29)
[2021-11-02] MEDS ORDERED: methylPREDNISolone Sod Succ 40 MG VIAL IVP SCH (16:45)
[2021-11-02] MEDS: Gabapentin 300 MG CAP PO SCH ×2 (18:38→20:28)
[2021-11-02] MEDS: Dronedarone HCl 400 MG TAB PO SCH (18:49)
[2021-11-02] MEDS: Mometasone 200 MCG/Formoterol 5 MCG 120 PUFF INHALER INH SCH (19:11)
[2021-11-02 20:05] LABS: SARS-CoV-2 PCR by NAA Not Detected (NotDetected)
[2021-11-02] MEDS: HYDROcodone/Acetaminophen 5/325 mg Tablet PO PRN (20:27)
[2021-11-02] MEDS: Famotidine/PF 20 mg/2ml Vial SLOW IVP SCH (20:28)
[2021-11-02] MEDS: Acetaminophen 325 MG TAB PO PRN (22:00)
[2021-11-03] MEDS: methylPREDNISolone Sod Succ 40 MG VIAL IVP SCH ×5 (00:44→18:30)
[2021-11-03 04:29] LABS: #Lymphocytes 0.5 thou/uL (1.20-3.40); #Monocytes 0.2 thou/uL (0.11-0.59); #Neutrophils 5.5 thou/uL (1.40-6.50); %Basophils 0.1 % (0.0-1.0); %Eosinophils 0.1 % (0.0-10.0); %Lymphocytes 8.2 % (21.0-51.0); %Monocytes 3.2 % (0.0-10.0); %Neutrophils 88.3 % (42.0-75.0); Hemoglobin 11.8 g/dL (12.0-16.0); Mean Corpuscular HGB CONC 32.8 g/dL (32.0-36.0); Mean Corpuscular Hemoglobin 32.1 pg (27.0-31.0); Mean Corpuscular Volume 97.8 fL (78.0-98.0); Mean Platelet Volume 6.5 fL (7.4-10.4); Platelet Count 277 thou/uL (130-400); Red Blood Cell (RBC) Count 3.67 mill/uL (4.20-5.40); White Blood Cell (WBC) Count 6.3 thou/uL (4.8-10.8)
[2021-11-03 04:48] LABS: Anion Gap 12 mmol/L (10-20); BUN (Urea Nitrogen) 9 mg/dL (9.8-20.1); Calc. Creatinine Clearance 51 mL/min (70-130); Calcium 8.4 mg/dL (7.8-10.44); Carbon Dioxide 32 mmol/L (23-31); Chloride 95 mmol/L (98-107); Glucose 124 mg/dL (83-110); Potassium 4.1 mmol/L (3.5-5.1); Sodium 135 mmol/L (136-145)
[2021-11-03] MEDS: Furosemide 20 MG/2 ML VIAL SLOW IVP SCH ×2 (05:43→15:06)
[2021-11-03] MEDS: Mometasone 200 MCG/Formoterol 5 MCG 120 PUFF INHALER INH SCH (07:53)
[2021-11-03] MEDS ORDERED: Atorvastatin Calcium 20 MG TAB PO SCH (09:00)
[2021-11-03] MEDS ORDERED: Aspirin 81 mg Enteric Coated Tablet PO SCH (09:00)
[2021-11-03] MEDS ORDERED: Enoxaparin Sodium 40 MG/0.4 ML SYRINGE SC SCH (09:00)
[2021-11-03] MEDS ORDERED: Losartan 25 MG TAB PO SCH (09:00)
[2021-11-03] MEDS ORDERED: Calcium Carbonate 600 MG + Vit D TAB PO SCH (09:00)
[2021-11-03] MEDS: HYDROcodone/Acetaminophen 5/325 mg Tablet PO PRN (09:22)
[2021-11-03] MEDS: Gabapentin 300 MG CAP PO SCH ×2 (09:23→15:06)
[2021-11-03] MEDS: Acetaminophen 325 MG TAB PO PRN ×2 (09:23→16:47)
[2021-11-03] MEDS: Dronedarone HCl 400 MG TAB PO SCH ×2 (09:24→16:47)
[2021-11-03] MEDS: Famotidine/PF 20 mg/2ml Vial SLOW IVP SCH (09:24)
[2021-11-03 14:34] VITALS: BMI 17.6
[2021-11-03 16:36] VITALS: BP 117/59; TEMP 98.3
== END 2021-11-03 19:00 | disposition home or self-care (01) ==
LOC: ERS 10:53 → SUATTDRO 10:53 → INTOOBSV 13:59 → ERHOLD 13:59 → 2NO 18:25
PROVIDERS: ADMIT Hospitalist; ATTEND Hospitalist
DX: J90 Pleural effusion, not elsewhere classified (principal); J96.21 Acute and chronic respiratory failure with hypoxia; J44.1 Chronic obstructive pulmonary disease with (acute) exacerbation; I11.0 Hypertensive heart disease with heart failure; I50.9 Heart failure, unspecified; C34.91 Malignant neoplasm of unspecified part of right bronchus or lung; E78.5 Hyperlipidemia, unspecified; Z87.891 Personal history of nicotine dependence; Z79.82 Long term (current) use of aspirin; Z79.890 Hormone replacement therapy; Z79.899 Other long term (current) drug therapy; Z88.2 Allergy status to sulfonamides; Z88.6 Allergy status to analgesic agent; Z99.81 Dependence on supplemental oxygen; Z20.822 Contact with and (suspected) exposure to COVID-19
CPT/HCPCS: 71045 ×2; 71275; 80048; 80053; 83605; 83880 ×2; 84484; 85007; 85025 ×2; 85027; 93005; 93970; 94640 ×5; 94664; 97139 ×3; 99285; U0003; U0005; 36415; J1642; J1650; J1940; J2405; J2920; J2930; J7620; S0028

== ENCOUNTER 2021-11-16 11:22 | Emergency (ER) | payer MEDICARE ==
[2021-11-16 12:37] LABS: #Eosinphils 0.5 thou/uL (0.0-0.7); #Lymphocytes 1.6 thou/uL (1.20-3.40); #Monocytes 1.1 thou/uL (0.11-0.59); %Basophils 0.2 % (0.0-1.0); %Eosinophils 3.5 % (0.0-10.0); %Lymphocytes 11.9 % (21.0-51.0); %Monocytes 8.6 % (0.0-10.0); %Neutrophils 75.7 % (42.0-75.0); Mean Corpuscular HGB CONC 31.4 g/dL (32.0-36.0); Mean Corpuscular Volume 98.8 fL (78.0-98.0); Mean Platelet Volume 6.3 fL (7.4-10.4); Platelet Count 341 thou/uL (130-400); Red Blood Cell (RBC) Count 3.86 mill/uL (4.20-5.40); White Blood Cell (WBC) Count 13.1 thou/uL (4.8-10.8)
[2021-11-16] MEDS ORDERED: Morphine 4 MG/ML VIAL ONE ×2 (12:43→14:40)
[2021-11-16] MEDS ORDERED: Ondansetron PF 4 MG/2 ML Vial ONE (12:43)
[2021-11-16 12:56] LABS: ALT (SGPT) 89 U/L (8-55); AST (SGOT) 56 U/L (5-34); Albumin 4.1 g/dL (3.4-4.8); Alkaline Phosphatase 111 U/L (40-110); Anion Gap 14 mmol/L (10-20); BUN (Urea Nitrogen) 9 mg/dL (9.8-20.1); Bilirubin, Total 0.6 mg/dL (0.2-1.2); Calc. Creatinine Clearance 0 mL/min (70-130); Calcium 9.2 mg/dL (7.8-10.44); Carbon Dioxide 33 mmol/L (23-31); Chloride 94 mmol/L (98-107); Glucose 99 mg/dL (83-110); Potassium 4.5 mmol/L (3.5-5.1); Protein, Total 7.1 g/dL (5.8-8.1); Sodium 136 mmol/L (136-145)
== END 2021-11-16 15:47 | disposition home or self-care (01) ==
LOC: ERS 11:22
DX: S22.040A Wedge compression fracture of fourth thoracic vertebra, initial encounter for closed fracture (principal); S22.050A Wedge compression fracture of T5-T6 vertebra, initial encounter for closed fracture; I10 Essential (primary) hypertension; J44.9 Chronic obstructive pulmonary disease, unspecified; X58.XXXA Exposure to other specified factors, initial encounter; Z85.118 Personal history of other malignant neoplasm of bronchus and lung; Z87.891 Personal history of nicotine dependence; Z79.82 Long term (current) use of aspirin; Z79.899 Other long term (current) drug therapy
CPT/HCPCS: 36415; 71045; 72072; 72128; 80053; 84484; 85025; 93005; 96374; 96375; 96376; J2270; J2405

== ENCOUNTER 2021-11-23 12:37 | Outpatient (CLI) | payer MEDICARE | END 2021-11-23 12:38 | disposition home or self-care (01) | LOC: SCSMRI 12:37 | PROVIDERS: ATTEND Nurse Practitioner Family | DX: S22.040A Wedge compression fracture of fourth thoracic vertebra, initial encounter for closed fracture (principal); J90 Pleural effusion, not elsewhere classified | CPT/HCPCS: 72146 ==

== ENCOUNTER 2021-12-04 12:07 | Inpatient (IN) | payer MEDICARE ==
[2021-12-04] MEDS ORDERED: methylPREDNISolone Sod Succ/PF 125 MG/2 ML VIAL ONE (12:18)
[2021-12-04 12:33] LABS: Actual Bicarbonate (HCO3a) 30.7 mEq/L (22-28); Analyzer IN Cardio ER; Base Excess (BEa) 2.8 mEq/L (-2.0 to +3.0); Calcium, Ionized (arterial) 1.17 mmol/L (1.12-1.30); Carboxyhemoglobin (COHb) 0.7 gm% (0.0-3.0); Hemoglobin (Hb) 13.1 g/dL (12.0-16.0); O2 Tension (PaO2), arterial 69.6 mmHg (> 70.0); Potassium - ABG Lab 4.56 mmol/L (3.70-5.30); pH, Arterial 7.31 (7.35-7.45)
[2021-12-04 12:34] LABS: CO2 Tension 62.9 mmHg (35.0-45.0); Puncture Site RRA
[2021-12-04 12:35] LABS: ALV-art Gradient 101.325 mmHg (0-20)
[2021-12-04] MEDS ORDERED: Nitroglycerin 2% Ointment 1 INCH/1 GM Packet ONE (12:35)
[2021-12-04 13:27] LABS: #Eosinphils 0.1 thou/uL (0.0-0.7); #Lymphocytes 0.9 thou/uL (1.20-3.40); #Monocytes 0.5 thou/uL (0.11-0.59); #Neutrophils 8.3 thou/uL (1.40-6.50); %Eosinophils 1.3 % (0.0-10.0); %Lymphocytes 8.7 % (21.0-51.0); %Monocytes 5.5 % (0.0-10.0); %Neutrophils 84.5 % (42.0-75.0); Mean Corpuscular HGB CONC 31.5 g/dL (32.0-36.0); Mean Corpuscular Hemoglobin 31.4 pg (27.0-31.0); Mean Corpuscular Volume 99.5 fL (78.0-98.0); Mean Platelet Volume 6.6 fL (7.4-10.4); Platelet Count 307 thou/uL (130-400); RBC Distribution Width 12.7 % (11.5-14.5); Red Blood Cell (RBC) Count 3.84 mill/uL (4.20-5.40); White Blood Cell (WBC) Count 9.8 thou/uL (4.8-10.8)
[2021-12-04 13:57] LABS: ALT (SGPT) 20 U/L (8-55); AST (SGOT) 26 U/L (5-34); Alkaline Phosphatase 110 U/L (40-110); Anion Gap 14 mmol/L (10-20); BUN (Urea Nitrogen) 10 mg/dL (9.8-20.1); Bilirubin, Total 0.3 mg/dL (0.2-1.2); Calc. Creatinine Clearance 0 mL/min (70-130); Calcium 9.1 mg/dL (7.8-10.44); Carbon Dioxide 29 mmol/L (23-31); Chloride 99 mmol/L (98-107); Globulin 2.5 g/dL (2.4-3.5); Glucose 143 mg/dL (83-110); Potassium 4.5 mmol/L (3.5-5.1); Protein, Total 6.5 g/dL (5.8-8.1); Sodium 137 mmol/L (136-145)
[2021-12-04] MEDS ORDERED: HYDROcodone/Acetaminophen 5/325 mg Tablet ONE (14:21)
[2021-12-04] MEDS ORDERED: Acetaminophen 325 MG TAB PO PRN (15:24)
[2021-12-04] MEDS ORDERED: Bisacodyl 10 MG SUPP PR PRN (15:24)
[2021-12-04] MEDS ORDERED: Bisacodyl 5 MG TAB PO PRN (15:24)
[2021-12-04] MEDS ORDERED: Furosemide 40 MG/4 ML VIAL SLOW IVP SCH (15:30)
[2021-12-04 17:00] LABS: Troponin I 0.036 ng/mL (< 0.028)
[2021-12-04] MEDS ORDERED: Acetaminophen 500 MG TAB ONE (17:33)
[2021-12-04] MEDS: HYDROcodone/Acetaminophen 5/325 mg Tablet PO PRN ×2 (18:37→23:17)
[2021-12-04] MEDS: Carvedilol 3.125 MG TAB PO SCH (18:37)
[2021-12-04 18:47] VITALS: BMI 17.2
[2021-12-04 19:44] LABS: Troponin I 0.042 ng/mL (< 0.028)
[2021-12-04] MEDS: Doxycycline 100 MG CAP PO SCH (20:52)
[2021-12-04] MEDS: guaiFENesin ER 600 MG TAB PO SCH (20:52)
[2021-12-04] MEDS: methylPREDNISolone Sod Succ 40 MG VIAL IVP SCH (20:52)
[2021-12-04] MEDS ORDERED: Famotidine 20 MG TAB PO SCH (21:00)
[2021-12-04] MEDS ORDERED: Gabapentin 300 MG CAP PO SCH (21:30)
[2021-12-04] MEDS ORDERED: diphenhydrAMINE 50 MG CAP PO SCH (21:30)
[2021-12-05 00:05] LABS: SARS-CoV-2 PCR by NAA Not Detected (NotDetected)
[2021-12-05] MEDS: HYDROcodone/Acetaminophen 5/325 mg Tablet PO PRN ×4 (04:49→22:13)
[2021-12-05 05:03] LABS: #Lymphocytes 0.8 thou/uL (1.20-3.40); #Monocytes 0.2 thou/uL (0.11-0.59); #Neutrophils 5.5 thou/uL (1.40-6.50); %Basophils 0.3 % (0.0-1.0); %Lymphocytes 11.9 % (21.0-51.0); %Monocytes 2.3 % (0.0-10.0); %Neutrophils 85.5 % (42.0-75.0); Hemoglobin 11.4 g/dL (12.0-16.0); Mean Corpuscular HGB CONC 32.5 g/dL (32.0-36.0); Mean Corpuscular Hemoglobin 31.7 pg (27.0-31.0); Mean Corpuscular Volume 97.7 fL (78.0-98.0); Mean Platelet Volume 7.2 fL (7.4-10.4); Platelet Count 360 thou/uL (130-400); RBC Distribution Width 12.7 % (11.5-14.5); Red Blood Cell (RBC) Count 3.61 mill/uL (4.20-5.40); White Blood Cell (WBC) Count 6.4 thou/uL (4.8-10.8)
[2021-12-05 05:11] LABS: Anion Gap 13 mmol/L (10-20); BUN (Urea Nitrogen) 12 mg/dL (9.8-20.1); Calc. Creatinine Clearance 47 mL/min (70-130); Calcium 8.5 mg/dL (7.8-10.44); Carbon Dioxide 32 mmol/L (23-31); Chloride 96 mmol/L (98-107); Glucose 134 mg/dL (83-110); Sodium 137 mmol/L (136-145)
[2021-12-05] MEDS ORDERED: Furosemide 40 MG/4 ML VIAL SLOW IVP SCH ×2 (09:00→14:00)
[2021-12-05] MEDS ORDERED: diphenhydrAMINE 25 MG CAP PO PRN (09:02)
[2021-12-05] MEDS: guaiFENesin ER 600 MG TAB PO SCH ×2 (09:32→21:19)
[2021-12-05] MEDS: Aspirin Chewable 81 MG TAB PO SCH (09:32)
[2021-12-05] MEDS: Famotidine 20 MG TAB PO SCH ×2 (09:32→21:19)
[2021-12-05] MEDS: Doxycycline 100 MG CAP PO SCH ×2 (09:32→21:19)
[2021-12-05] MEDS: methylPREDNISolone Sod Succ 40 MG VIAL IVP SCH ×2 (09:33→21:20)
[2021-12-05] MEDS: Carvedilol 3.125 MG TAB PO SCH ×2 (09:33→16:40)
[2021-12-05] MEDS: Furosemide 40 MG/4 ML VIAL SLOW IVP SCH (09:41)
[2021-12-05] MEDS: Mometasone 200 MCG/Formoterol 5 MCG 120 PUFF INHALER INH SCH (19:30)
[2021-12-05] MEDS ORDERED: VIT C PO SCH (21:00)
[2021-12-05] MEDS ORDERED: COPPER PO SCH (21:00)
[2021-12-05] MEDS ORDERED: Non-Formulary Item 1 EACH (Budesonide-Formoterol [Symbicort 160-4.5] 160 MG/4.5 MG Aer) INH SCH (21:00)
[2021-12-05] MEDS ORDERED: VIT A PO SCH (21:00)
[2021-12-05] MEDS ORDERED: VIT E PO SCH (21:00)
[2021-12-05] MEDS ORDERED: ZINC PO SCH (21:00)
[2021-12-05] MEDS ORDERED: Gabapentin 300 MG CAP PO SCH (21:00)
[2021-12-05] MEDS ORDERED: [UNRECOGNIZED DRUG - OTHER] PO SCH (21:00)
[2021-12-05] MEDS: Vit A,C & E/Lutein/Minerals Tablet PO SCH (21:19)
[2021-12-06] MEDS: HYDROcodone/Acetaminophen 5/325 mg Tablet PO PRN ×3 (04:58→14:49)
[2021-12-06] MEDS: Mometasone 200 MCG/Formoterol 5 MCG 120 PUFF INHALER INH SCH (07:20)
[2021-12-06] MEDS ORDERED: Non-Formulary Item 1 EACH (Calcium Carbonate/Vitamin D3 [Calcium 500 + Vitamin D3 400] 12 PO SCH (09:00)
[2021-12-06] MEDS ORDERED: Non-Formulary Item 1 EACH (Losartan Potassium [Losartan Potassium] 100 MG Tablet) PO SCH (09:00)
[2021-12-06] MEDS ORDERED: Non-Formulary Item 1 EACH (Multivit-Minerals/Folic/Ginkgo [One Daily For Women 50+ Adv] 1 PO SCH (09:00)
[2021-12-06] MEDS: Carvedilol 3.125 MG TAB PO SCH ×2 (09:28→14:44)
[2021-12-06] MEDS: Famotidine 20 MG TAB PO SCH ×2 (09:29→14:45)
[2021-12-06] MEDS: Aspirin Chewable 81 MG TAB PO SCH ×2 (09:29→14:46)
[2021-12-06] MEDS: Atorvastatin Calcium 20 MG TAB PO SCH ×2 (09:29→14:47)
[2021-12-06] MEDS: Furosemide 40 MG/4 ML VIAL SLOW IVP SCH (09:29)
[2021-12-06] MEDS: Calcium Carbonate 600 MG + Vit D TAB PO SCH ×2 (09:29→14:47)
[2021-12-06] MEDS: Doxycycline 100 MG CAP PO SCH ×2 (09:29→14:45)
[2021-12-06] MEDS: Gabapentin 300 MG CAP PO SCH ×2 (09:30→14:48)
[2021-12-06] MEDS: guaiFENesin ER 600 MG TAB PO SCH ×2 (09:31→14:45)
[2021-12-06] MEDS: Multivitamin W/ Minerals 1 TAB PO SCH ×2 (09:31→14:49)
[2021-12-06] MEDS: Losartan 25 MG TAB PO SCH ×2 (09:31→14:50)
[2021-12-06] MEDS: methylPREDNISolone Sod Succ 40 MG VIAL IVP SCH (09:32)
[2021-12-06] MEDS: Vit A,C & E/Lutein/Minerals Tablet PO SCH ×2 (09:35→14:46)
[2021-12-06 14:44] VITALS: BP 135/87; TEMP 98.5
[2021-12-06] MEDS ORDERED: Bupivacaine 0.25% 10 ML VIAL ONE (15:43)
[2021-12-06] MEDS ORDERED: Iopamidol-M 300 61% 15 ML VIAL ONE (15:43)
[2021-12-06] MEDS ORDERED: Lidocaine 2% PF 5 ML VIAL ONE (15:43)
== END 2021-12-06 17:17 | disposition home or self-care (01) | DRG 291 ==
LOC: ERS 12:07 → ERHOLD 14:59 → 2NO 17:48
PROVIDERS: ADMIT Emergency Medicine; ATTEND Emergency Medicine
PROC: 0W993ZZ Drainage of Right Pleural Cavity, Percutaneous Approach (ICD-10-PCS; principal; 2021-12-06)
DX: I11.0 Hypertensive heart disease with heart failure (principal); J96.21 Acute and chronic respiratory failure with hypoxia; I50.23 Acute on chronic systolic (congestive) heart failure; E43 Unspecified severe protein-calorie malnutrition; C34.90 Malignant neoplasm of unspecified part of unspecified bronchus or lung; J44.1 Chronic obstructive pulmonary disease with (acute) exacerbation; M48.54XA Collapsed vertebra, not elsewhere classified, thoracic region, initial encounter for fracture; J90 Pleural effusion, not elsewhere classified; Z68.1 Body mass index [BMI] 19.9 or less, adult; Z20.822 Contact with and (suspected) exposure to COVID-19; M54.9 Dorsalgia, unspecified; G89.29 Other chronic pain; G25.81 Restless legs syndrome; E78.5 Hyperlipidemia, unspecified; Z87.891 Personal history of nicotine dependence; Z88.2 Allergy status to sulfonamides; Z79.82 Long term (current) use of aspirin; Z79.51 Long term (current) use of inhaled steroids; Z79.899 Other long term (current) drug therapy; Z99.81 Dependence on supplemental oxygen; Z88.5 Allergy status to narcotic agent
CPT/HCPCS: 36415; 36600; 71045; 71046; 80048; 80053; 82805; 83880; 84484; 85025; 93005; 94640; 94660; 94799; 96374; 97139; J1040; J1940; J2001; J2920; J2930; J7620; Q9967; S0020; U0003; U0005

== ENCOUNTER 2021-12-14 10:15 | Outpatient (CLI) | payer MEDICARE | END 2021-12-14 10:16 | disposition home or self-care (01) | LOC: PET 10:15 | PROVIDERS: ATTEND Internal Medicine Hematology & Oncology | DX: C34.11 Malignant neoplasm of upper lobe, right bronchus or lung (principal) | CPT/HCPCS: 78815; A9552; 36415; 80053; 82248; 83615; 84100; 84439; 84443; 84550 ==

== ENCOUNTER 2022-01-03 14:30 | Observation (INO) | payer MEDICARE ==
[~2022-01-03 14:30] MED LIST changes: -Bupivacaine 0.25% HCL 30 ML VIAL ONE; -Heparin 5,000 UNITS/ML VIAL ONE; +Iopamidol 370 76% 100 ML VIAL ONE; -Lidocaine 2% PF 5 ML VIAL ONE; -Xylocaine 1% w/ Epi 1:100K 10 ML VIAL ONE
[2022-01-03 15:40] LABS: #Basophils 0.1 thou/uL (0.0-0.2); #Eosinphils 0.4 thou/uL (0.0-0.7); #Lymphocytes 1.1 thou/uL (1.20-3.40); #Monocytes 0.8 thou/uL (0.11-0.59); #Neutrophils 3.5 thou/uL (1.40-6.50); %Basophils 1.1 % (0.0-1.0); %Eosinophils 6.4 % (0.0-10.0); %Lymphocytes 19.1 % (21.0-51.0); %Monocytes 12.8 % (0.0-10.0); %Neutrophils 60.6 % (42.0-75.0); Hemoglobin 11.4 g/dL (12.0-16.0); Mean Corpuscular HGB CONC 31.9 g/dL (32.0-36.0); Mean Corpuscular Hemoglobin 31.7 pg (27.0-31.0); Mean Corpuscular Volume 99.4 fL (78.0-98.0); Mean Platelet Volume 6.8 fL (7.4-10.4); Platelet Count 296 thou/uL (130-400); RBC Distribution Width 13.2 % (11.5-14.5); Red Blood Cell (RBC) Count 3.59 mill/uL (4.20-5.40); White Blood Cell (WBC) Count 5.8 thou/uL (4.8-10.8)
[2022-01-03 15:44] LABS: Bilirubin Negative (Negative); Blood, Urine Negative (Negative); Clarity Clear (Clear); Glucose, Urine (Dipstick) Normal (Negative); Ketone, Urine Negative (Negative); Leukocyte Negative Leu/uL (Negative); Nitrite Negative (Negative); Protein, Urine (Dipstick) Negative (Neg-Trace); Specific Gravity, Urine 1.011 (1.002-1.036); Urobilinogen Normal mg/dL (Less than 2)
[2022-01-03] MEDS ORDERED: Nitroglycerin 2% Ointment 1 INCH/1 GM Packet ONE (15:47)
[2022-01-03 16:04] LABS: ALT (SGPT) 12 U/L (8-55); AST (SGOT) 19 U/L (5-34); Albumin 3.8 g/dL (3.4-4.8); Alkaline Phosphatase 86 U/L (40-110); Anion Gap 12 mmol/L (10-20); BUN (Urea Nitrogen) 8 mg/dL (9.8-20.1); Bilirubin, Total 0.5 mg/dL (0.2-1.2); Calc. Creatinine Clearance 0 mL/min (70-130); Calcium 9.2 mg/dL (7.8-10.44); Carbon Dioxide 33 mmol/L (23-31); Chloride 100 mmol/L (98-107); Glucose 90 mg/dL (83-110); Potassium 4.1 mmol/L (3.5-5.1); Protein, Total 6.8 g/dL (5.8-8.1); Sodium 141 mmol/L (136-145)
[2022-01-03] MEDS ORDERED: Aspirin 325 MG TAB ONE (16:33)
[2022-01-03] MEDS ORDERED: HYDROcodone/Acetaminophen 5/325 mg Tablet ONE (16:37)
[2022-01-03] MEDS ORDERED: Furosemide 20 MG/2 ML VIAL ONE (16:48)
[2022-01-03] MEDS ORDERED: Acetaminophen 325 MG TAB PO PRN (17:28)
[2022-01-03] MEDS ORDERED: Ondansetron PF 4 MG/2 ML Vial IVP PRN (17:28)
[2022-01-03] MEDS ORDERED: diphenhydrAMINE 25 MG CAP PO PRN (17:47)
[2022-01-03] MEDS ORDERED: hydrALAZINE 20 MG/ML VIAL SLOW IVP PRN (17:50)
[2022-01-03] MEDS ORDERED: Morphine 2 MG/ML VIAL SLOW IVP PRN (18:03)
[2022-01-03] MEDS: Mometasone 200 MCG/Formoterol 5 MCG 120 PUFF INHALER INH SCH (18:49)
[2022-01-03 19:23] VITALS: BMI 17.9
[2022-01-03] MEDS: Heparin 5,000 UNITS/ML VIAL SC SCH (20:44)
[2022-01-03] MEDS: Senokot 8.6 MG TAB PO SCH (20:45)
[2022-01-03] MEDS: Vit A,C & E/Lutein/Minerals Tablet PO SCH (20:45)
[2022-01-03] MEDS: HYDROcodone/Acetaminophen 10/325 mg Tablet PO PRN (20:46)
[2022-01-03] MEDS ORDERED: Gabapentin 300 MG CAP PO SCH (21:00)
[2022-01-03] MEDS: methylPREDNISolone Sod Succ 40 MG VIAL IVP SCH (22:56)
[2022-01-04 04:59] LABS: #Lymphocytes 0.7 thou/uL (1.20-3.40); #Monocytes 0.1 thou/uL (0.11-0.59); #Neutrophils 3.4 thou/uL (1.40-6.50); %Eosinophils 1.1 % (0.0-10.0); %Lymphocytes 15.8 % (21.0-51.0); %Monocytes 2.9 % (0.0-10.0); %Neutrophils 79.2 % (42.0-75.0); Mean Corpuscular HGB CONC 31.7 g/dL (32.0-36.0); Mean Corpuscular Hemoglobin 31.4 pg (27.0-31.0); Mean Platelet Volume 7.3 fL (7.4-10.4); Platelet Count 293 thou/uL (130-400); RBC Distribution Width 13.3 % (11.5-14.5); Red Blood Cell (RBC) Count 3.83 mill/uL (4.20-5.40); White Blood Cell (WBC) Count 4.3 thou/uL (4.8-10.8)
[2022-01-04 05:19] LABS: Anion Gap 15 mmol/L (10-20); BUN (Urea Nitrogen) 11 mg/dL (9.8-20.1); Calc. Creatinine Clearance 47 mL/min (70-130); Calcium 9.2 mg/dL (7.8-10.44); Carbon Dioxide 31 mmol/L (23-31); Chloride 97 mmol/L (98-107); Glucose 124 mg/dL (83-110); Potassium 4.2 mmol/L (3.5-5.1); Sodium 139 mmol/L (136-145)
[2022-01-04] MEDS: methylPREDNISolone Sod Succ 40 MG VIAL IVP SCH (06:09)
[2022-01-04] MEDS: Mometasone 200 MCG/Formoterol 5 MCG 120 PUFF INHALER INH SCH (07:11)
[2022-01-04] MEDS: HYDROcodone/Acetaminophen 10/325 mg Tablet PO PRN (08:45)
[2022-01-04] MEDS: Heparin 5,000 UNITS/ML VIAL SC SCH (08:48)
[2022-01-04] MEDS: Vit A,C & E/Lutein/Minerals Tablet PO SCH (08:49)
[2022-01-04] MEDS: Senokot 8.6 MG TAB PO SCH (08:49)
[2022-01-04] MEDS ORDERED: Losartan 25 MG TAB PO SCH (09:00)
[2022-01-04] MEDS ORDERED: Multivitamin W/ Minerals 1 TAB PO SCH (09:00)
[2022-01-04] MEDS ORDERED: Calcium Carbonate 600 MG + Vit D TAB PO SCH (09:00)
[2022-01-04] MEDS ORDERED: Gabapentin 300 MG CAP PO SCH (09:00)
[2022-01-04] MEDS ORDERED: Aspirin 81 mg Enteric Coated Tablet PO SCH (09:00)
[2022-01-04] MEDS ORDERED: Furosemide 20 MG/2 ML VIAL SLOW IVP SCH (09:00)
[2022-01-04] MEDS ORDERED: Atorvastatin Calcium 20 MG TAB PO SCH (09:00)
[2022-01-04 12:20] VITALS: BP 132/68; TEMP 98.4
[2022-01-04] MEDS ORDERED: predniSONE 20 MG TAB PO SCH (17:00)
== END 2022-01-04 14:42 | disposition home or self-care (01) ==
LOC: ERS 14:30 → 2SW 16:42
PROVIDERS: ADMIT Internal Medicine; ATTEND Internal Medicine
DX: J44.1 Chronic obstructive pulmonary disease with (acute) exacerbation (principal); I13.0 Hypertensive heart and chronic kidney disease with heart failure and stage 1 through stage 4 chronic kidney disease, or unspecified chronic kidney disease; N18.2 Chronic kidney disease, stage 2 (mild); I50.23 Acute on chronic systolic (congestive) heart failure; D63.1 Anemia in chronic kidney disease; J96.21 Acute and chronic respiratory failure with hypoxia; C34.91 Malignant neoplasm of unspecified part of right bronchus or lung; G89.29 Other chronic pain; M54.50 Low back pain, unspecified; M81.0 Age-related osteoporosis without current pathological fracture; J90 Pleural effusion, not elsewhere classified; I50.20 Unspecified systolic (congestive) heart failure; M79.89 Other specified soft tissue disorders; E78.5 Hyperlipidemia, unspecified; M85.80 Other specified disorders of bone density and structure, unspecified site; J98.11 Atelectasis; Z66 Do not resuscitate; Z87.891 Personal history of nicotine dependence; Z79.82 Long term (current) use of aspirin; Z79.83 Long term (current) use of bisphosphonates; Z79.890 Hormone replacement therapy; Z79.899 Other long term (current) drug therapy; Z88.2 Allergy status to sulfonamides; Z88.6 Allergy status to analgesic agent; Z99.81 Dependence on supplemental oxygen; Z20.822 Contact with and (suspected) exposure to COVID-19
CPT/HCPCS: 71045; 71275; 80048; 80053; 81003; 82553; 83880; 84484 ×2; 85025 ×2; 93005; 93970; 94640; 96374; 97139; 97530; 99285; U0003; U0005; 36415; 96372; 96375; 96376; G0378; J1642; J1644; J1940; J2920; Q9967

== ENCOUNTER 2022-02-13 09:37 | Emergency (ER) | payer MEDICARE ==
[2022-02-13 10:24] LABS: #Eosinphils 0.2 thou/uL (0.0-0.7); #Monocytes 0.8 thou/uL (0.11-0.59); #Neutrophils 5.9 thou/uL (1.40-6.50); %Basophils 0.6 % (0.0-1.0); %Eosinophils 2.2 % (0.0-10.0); %Lymphocytes 12.6 % (21.0-51.0); %Monocytes 10.1 % (0.0-10.0); %Neutrophils 74.4 % (42.0-75.0); Hemoglobin 11.8 g/dL (12.0-16.0); Mean Corpuscular HGB CONC 31.8 g/dL (32.0-36.0); Mean Corpuscular Hemoglobin 31.1 pg (27.0-31.0); Mean Corpuscular Volume 97.9 fL (78.0-98.0); Mean Platelet Volume 7.2 fL (7.4-10.4); Platelet Count 226 thou/uL (130-400); RBC Distribution Width 12.2 % (11.5-14.5); Red Blood Cell (RBC) Count 3.79 mill/uL (4.20-5.40); White Blood Cell (WBC) Count 7.9 thou/uL (4.8-10.8)
[2022-02-13 10:40] LABS: ALT (SGPT) 10 U/L (8-55); AST (SGOT) 20 U/L (5-34); Albumin 3.8 g/dL (3.4-4.8); Alkaline Phosphatase 80 U/L (40-110); Anion Gap 15 mmol/L (10-20); BUN (Urea Nitrogen) 9 mg/dL (9.8-20.1); Bilirubin, Total 0.4 mg/dL (0.2-1.2); Calc. Creatinine Clearance 0 mL/min (70-130); Calcium 8.9 mg/dL (7.8-10.44); Carbon Dioxide 27 mmol/L (23-31); Chloride 96 mmol/L (98-107); Estimated GFR 88; Globulin 2.5 g/dL (2.4-3.5); Glucose 125 mg/dL (83-110); Potassium 3.9 mmol/L (3.5-5.1); Protein, Total 6.3 g/dL (5.8-8.1); Sodium 134 mmol/L (136-145)
== END 2022-02-13 13:00 | disposition home or self-care (01) ==
LOC: ERS 09:37
DX: J44.1 Chronic obstructive pulmonary disease with (acute) exacerbation (principal); E03.9 Hypothyroidism, unspecified; I10 Essential (primary) hypertension; Z87.891 Personal history of nicotine dependence; Z79.899 Other long term (current) drug therapy; Z79.82 Long term (current) use of aspirin
CPT/HCPCS: 71045; 80053; 83880; 84484; 85025; 93005; 94760

== ENCOUNTER 2022-03-04 14:11 | Emergency (ER) | payer MEDICARE ==
[~2022-03-04 14:11] MED LIST changes: -Iopamidol 370 76% 100 ML VIAL ONE; +Iopamidol-370 76% 500 ML 1 ML ONE
[2022-03-04] MEDS ORDERED: methylPREDNISolone Sod Succ/PF 125 MG/2 ML VIAL ONE ×2 (14:41→14:42)
[2022-03-04] MEDS ORDERED: Magnesium 2 GM/50 ML BAG (IN WATER) ONE (14:41)
[2022-03-04 14:53] LABS: #Eosinphils 0.3 thou/uL (0.0-0.7); #Lymphocytes 1.8 thou/uL (1.20-3.40); #Monocytes 0.6 thou/uL (0.11-0.59); #Neutrophils 3.7 thou/uL (1.40-6.50); %Basophils 0.3 % (0.0-1.0); %Eosinophils 5.3 % (0.0-10.0); %Lymphocytes 27.8 % (21.0-51.0); %Monocytes 9.3 % (0.0-10.0); %Neutrophils 57.3 % (42.0-75.0); Hemoglobin 12.7 g/dL (12.0-16.0); Mean Corpuscular HGB CONC 32.3 g/dL (32.0-36.0); Mean Corpuscular Volume 99.2 fL (78.0-98.0); Mean Platelet Volume 7.6 fL (7.4-10.4); Platelet Count 196 thou/uL (130-400); RBC Distribution Width 12.2 % (11.5-14.5); Red Blood Cell (RBC) Count 3.97 mill/uL (4.20-5.40); White Blood Cell (WBC) Count 6.5 thou/uL (4.8-10.8)
[2022-03-04 15:16] LABS: ALT (SGPT) 14 U/L (8-55); AST (SGOT) 24 U/L (5-34); Albumin 4.1 g/dL (3.4-4.8); Alkaline Phosphatase 77 U/L (40-110); Anion Gap 13 mmol/L (10-20); BUN (Urea Nitrogen) 6 mg/dL (9.8-20.1); Bilirubin, Total 0.6 mg/dL (0.2-1.2); Calc. Creatinine Clearance 0 mL/min (70-130); Calcium 9.8 mg/dL (7.8-10.44); Carbon Dioxide 32 mmol/L (23-31); Chloride 100 mmol/L (98-107); Estimated GFR 84; Globulin 2.8 g/dL (2.4-3.5); Glucose 99 mg/dL (83-110); Potassium 4.4 mmol/L (3.5-5.1); Protein, Total 6.9 g/dL (5.8-8.1); Sodium 141 mmol/L (136-145)
[2022-03-04 16:32] LABS: CKMB 3.2 ng/mL (0-6.6)
[2022-03-04] MEDS ORDERED: Gabapentin 300 MG CAP PO SCH (17:00)
[2022-03-04 18:25] LABS: Troponin I 0.023 ng/mL (< 0.028)
[2022-03-04] MEDS ORDERED: Acetaminophen 500 MG TAB ONE (19:00)
== END 2022-03-04 19:04 | disposition home or self-care (01) ==
LOC: ERS 14:11
DX: R06.02 Shortness of breath (principal); E03.9 Hypothyroidism, unspecified; Z87.891 Personal history of nicotine dependence; Z79.899 Other long term (current) drug therapy
CPT/HCPCS: 36415; 71045; 71275; 80053; 82553; 83735; 83880; 84484; 85025; 93005; 94640; 96374; 96375; J2930; J3475; Q9967

== ENCOUNTER 2022-04-23 12:45 | Emergency (ER) | payer MEDICARE ==
[2022-04-23 15:15] LABS: #Basophils 0.1 thou/uL (0.0-0.2); #Eosinphils 0.3 thou/uL (0.0-0.7); #Lymphocytes 1.1 thou/uL (1.20-3.40); #Monocytes 0.6 thou/uL (0.11-0.59); #Neutrophils 3.1 thou/uL (1.40-6.50); %Basophils 1.4 % (0.0-1.0); %Eosinophils 5.1 % (0.0-10.0); %Lymphocytes 21.7 % (21.0-51.0); %Monocytes 11.1 % (0.0-10.0); %Neutrophils 60.7 % (42.0-75.0); Hemoglobin 11.5 g/dL (12.0-16.0); Mean Corpuscular Hemoglobin 30.3 pg (27.0-31.0); Mean Corpuscular Volume 97.8 fL (78.0-98.0); Mean Platelet Volume 7.9 fL (7.4-10.4); Platelet Count 188 thou/uL (130-400); Red Blood Cell (RBC) Count 3.79 mill/uL (4.20-5.40); White Blood Cell (WBC) Count 5.1 thou/uL (4.8-10.8)
[2022-04-23 15:37] LABS: ALT (SGPT) 12 U/L (8-55); AST (SGOT) 20 U/L (5-34); Albumin 3.9 g/dL (3.4-4.8); Alkaline Phosphatase 67 U/L (40-110); Anion Gap 11 mmol/L (10-20); BUN (Urea Nitrogen) 6 mg/dL (9.8-20.1); Bilirubin, Total 0.5 mg/dL (0.2-1.2); Calc. Creatinine Clearance 0 mL/min (70-130); Calcium 9.3 mg/dL (7.8-10.44); Carbon Dioxide 33 mmol/L (23-31); Chloride 100 mmol/L (98-107); Estimated GFR 90; Globulin 2.4 g/dL (2.4-3.5); Glucose 89 mg/dL (83-110); Lipase 10 U/L (8-78); Potassium 3.9 mmol/L (3.5-5.1); Protein, Total 6.3 g/dL (5.8-8.1); Sodium 140 mmol/L (136-145)
[2022-04-23] MEDS ORDERED: methylPREDNISolone Sod Succ/PF 125 MG/2 ML VIAL ONE (16:17)
== END 2022-04-23 18:46 | disposition home or self-care (01) ==
LOC: ERS 12:45
DX: J44.1 Chronic obstructive pulmonary disease with (acute) exacerbation (principal); E03.9 Hypothyroidism, unspecified; I10 Essential (primary) hypertension; Z87.891 Personal history of nicotine dependence; Z79.82 Long term (current) use of aspirin; Z79.899 Other long term (current) drug therapy
CPT/HCPCS: 36415; 71045; 71275; 80053; 83690; 83880; 84484; 85025; 85379; 93005; 96374; J2930; J7620; Q9967

== ENCOUNTER 2022-04-26 10:15 | Outpatient (CLI) | payer MEDICARE | END 2022-04-26 10:16 | disposition home or self-care (01) | LOC: PET 10:15 | PROVIDERS: ATTEND Internal Medicine Hematology & Oncology | DX: C34.11 Malignant neoplasm of upper lobe, right bronchus or lung (principal); N85.2 Hypertrophy of uterus | CPT/HCPCS: 78815; A9552 ==

== ENCOUNTER 2022-05-23 10:04 | Outpatient (CLI) | payer MEDICARE | END 2022-05-23 10:05 | disposition home or self-care (01) | LOC: BICULT 10:04 | PROVIDERS: ATTEND Nurse Practitioner Family | DX: N83.209 Unspecified ovarian cyst, unspecified side (principal) | CPT/HCPCS: 76856 ==

== ENCOUNTER 2022-06-05 13:39 | Emergency (ER) | payer MEDICARE ==
[2022-06-05 14:43] LABS: #Eosinphils 0.2 thou/uL (0.0-0.7); #Lymphocytes 1.3 thou/uL (1.20-3.40); #Monocytes 0.6 thou/uL (0.11-0.59); #Neutrophils 3.9 thou/uL (1.40-6.50); %Basophils 0.5 % (0.0-1.0); %Eosinophils 2.8 % (0.0-10.0); %Monocytes 9.6 % (0.0-10.0); Hemoglobin 11.3 g/dL (12.0-16.0); Mean Corpuscular HGB CONC 31.4 g/dL (32.0-36.0); Mean Corpuscular Hemoglobin 30.6 pg (27.0-31.0); Mean Corpuscular Volume 97.6 fl (78.0-98.0); Platelet Count 209 10x3/uL (130-400); RBC Distribution Width 12.7 % (11.5-14.5); Red Blood Cell (RBC) Count 3.69 mill/uL (4.20-5.40); White Blood Cell (WBC) Count 6.1 10x3/uL (4.8-10.8)
[2022-06-05 15:03] LABS: Albumin 3.7 g/dL (3.4-4.8)
[2022-06-05 15:04] LABS: Chloride 100 mmol/L (98-107); Potassium 3.9 mmol/L (3.5-5.1); Sodium 138 mmol/L (136-145)
[2022-06-05] MEDS ORDERED: methylPREDNISolone Sod Succ/PF 125 MG/2 ML VIAL ONE (15:04)
[2022-06-05] MEDS ORDERED: Magnesium 2 GM/50 ML BAG (IN WATER) ONE (15:04)
[2022-06-05 15:05] LABS: Calcium 8.9 mg/dL (7.8-10.44); Glucose 91 mg/dL (83-110)
[2022-06-05 15:06] LABS: Globulin 2.4 g/dL (2.4-3.5); Protein, Total 6.1 g/dL (5.8-8.1)
[2022-06-05 15:07] LABS: Anion Gap 13 mmol/L (10-20); Bilirubin, Total 0.5 mg/dL (0.2-1.2); Carbon Dioxide 29 mmol/L (23-31)
[2022-06-05 15:08] LABS: Alkaline Phosphatase 74 U/L (40-110)
[2022-06-05 15:09] LABS: Calc. Creatinine Clearance 0 mL/min (70-130); Estimated GFR 89
[2022-06-05 15:10] LABS: BUN (Urea Nitrogen) 10 mg/dL (9.8-20.1)
[2022-06-05 15:11] LABS: AST (SGOT) 27 U/L (5-34)
[2022-06-05 15:12] LABS: Lipase 19 U/L (8-78)
[2022-06-05] MEDS ORDERED: HYDROcodone/Acetaminophen 5/325 mg Tablet ONE (15:32)
[2022-06-05 15:44] LABS: ALT (SGPT) 19 U/L (8-55)
== END 2022-06-05 17:18 | disposition home or self-care (01) ==
LOC: ERS 13:39
DX: J44.1 Chronic obstructive pulmonary disease with (acute) exacerbation (principal); E03.9 Hypothyroidism, unspecified; I10 Essential (primary) hypertension; Z87.891 Personal history of nicotine dependence; Z79.899 Other long term (current) drug therapy
CPT/HCPCS: 71275; 80053; 83690; 83880; 84484; 85025; 93005; 94640; 96365; 96375; J1642; J2930; J3475; Q9967